=== PATIENT | male | born 1955 | race Caucasian/White ===

== ENCOUNTER 2016-11-21 18:59 | Inpatient (IN) | payer OTHER ==
[~2016-11-21] VITALS: Ht 172.7 cm; Wt 106.0 kg
[~2016-11-21 18:59] MED LIST: AMLO5TAB4 PO; ASPI-664 PO; CIPR500T4 PO; HYDR-902 PO; IBUP-1542 PO; INSU100C SQ; INSU100I31 SQ; LOSA50TA6 PO; LOVA20TA PO; TAMS-14 PO
[2016-11-21 19:08] VITALS: Ht 172.7 cm; Wt 106.0 kg
[2016-11-21] MEDS ORDERED: INSULIN LISPRO 100 UNIT/ML VIAL SC STA (22:49)
[2016-11-21] MEDS ORDERED: SOD CHLORIDE 0.9% 1,000 ML IV STA (22:49)
--- NOTE | 2016-11-21 23:23 | RADRPT ---
PROCEDURE: XR Chest. CLINICAL INDICATION: Hyperglycemia. TECHNIQUE: Portable AP upright view of the chest was obtained. COMPARISON: 06/05/2016 FINDINGS: The cardiomediastinal silhouette is within normal limits. The lungs are clear. There is no evidenc e for pleural effusion, pneumothorax or pulmonary vascular congestion. The osseous structures are i ntact with no evidence for acute abnormality. RPTAT:HJJR IMPRESSION: No evidence for acute intrathoracic pathology or interval change from 06/05/2016. Physician Julien Date Time Electronically viewed and signed by Cameron Sinclair Physician on 11/21/2016 23:22 /
[2016-11-21 23:37] LABS: BASOPHIL # 0.1 10^3/ul (0.0-0.1); BASOPHILS % 1.3 % (0.0-2.0); EOSINOPHILS # 0.2 10^3/ul (0.0-0.5); EOSINOPHILS % 1.6 % (0.0-7.0); HEMATOCRIT 48.5 % (42.0-52.0); HEMOGLOBIN 16.6 g/dl (14.0-18.0); LYMPHOCYTES # 3.3 10^3/ul (0.8-2.9); LYMPHOCYTES % 31.3 % (15.0-51.0); MEAN CORPUSCULAR HEMOGLOBIN 30.1 pg (29.0-33.0); MEAN CORPUSCULAR HGB CONC 34.2 g/dl (32.0-37.0); MEAN CORPUSCULAR VOLUME 87.8 fl (82.0-101.0); MEAN PLATELET VOLUME 10.5 fl (7.4-10.4); MONOCYTE # 0.7 10^3/ul (0.3-0.9); MONOCYTES % 6.4 % (0.0-11.0); NEUTROPHIL # 6.3 10^3/ul (1.6-7.5); NEUTROPHILS % 59.4 % (39.0-77.0); PLATELET COUNT 187 10^3/UL (140-440); RED BLOOD COUNT 5.53 10^6/ul (4.70-6.10); RED CELL DISTRIBUTION WIDTH 13.8 % (11.5-14.5); UNCORRECTED WBC 10.6 10^3/ul (4.8-10.8); WHITE BLOOD COUNT 10.6 10^3/ul (4.8-10.8)
[2016-11-21 23:43] LABS: CONDITION 1
[2016-11-22 00:17] LABS: ADD UMIC NO; URINE BILIRUBIN (Dip) NEGATIVE (NEGATIVE); URINE BLOOD (Dip) NEGATIVE (NEGATIVE); URINE COLOR LT. YELLOW (YELLOW); URINE GLUCOSE (Dip) >=1000 % (NEGATIVE); URINE KETONES (Dip) NEGATIVE (NEGATIVE); URINE LEUKOCYTE ESTERASE (Dip) NEGATIVE (NEGATIVE); URINE NITRITE (Dip) NEGATIVE (NEGATIVE); URINE TOTAL PROTEIN (Dip) NEGATIVE (NEGATIVE); URINE UROBILINOGEN (Dip) 0.2 E.U./dL (0.1-1.0)
[2016-11-22 00:26] LABS: ALBUMIN 4.1 g/dl (3.3-4.9)
[2016-11-22 00:27] LABS: POTASSIUM 4.6 mmol/L (3.5-5.1)
[2016-11-22 00:29] LABS: ALBUMIN/GLOBULIN RATIO 1.2; CREATININE 0.82 mg/dl (0.61-1.24); TOTAL PROTEIN 7.5 g/dl (6.1-8.1)
[2016-11-22 00:30] LABS: CALCIUM 9.6 mg/dl (8.4-10.2)
[2016-11-22] MEDS ORDERED: INSULIN REGULAR, HUMAN 100 UNIT in SOD CHLORIDE 0.9% 99 ML IV STA ×2 (00:58)
--- NOTE | 2016-11-22 02:40 | ERA ---
ER Documentation Chief Complaint Date/Time DATE: 11/22/16 TIME: 02:36 Chief Complaint hyperglycemia, accucheck 442 HPI This is a 61-year-old male who comes in with elevated blood sugars at home. Denies any fevers or chills. Denies any polyuria polydipsia polyphagia. States he's been compliant with his medications. Denies any other current problems. ROS All systems reviewed and are negative except as per history of present illness. Medications Home Meds Active Scripts Tamsulosin Hcl* (Flomax*) 0.4 Mg Cap.er.24h, 0.4 MG PO QPM, #30 CAP Prov:SANTIAGO PORTILLO MD 07/16/16 Ibuprofen* (Motrin*) 600 Mg Tab, 600 MG PO Q6H Y for PAIN AND OR ELEVATED TEMP, #30 TAB Prov:SANTIAGO PORTILLO MD 07/16/16 Hydrocodone/Acetaminophen ([place] 10-325 Tablet) 1 Each Tablet, 1 TAB PO Q6H Y for PAIN, #12 TAB Prov:SANTIAGO PORTILLO MD 07/16/16 Ciprofloxacin Hcl* (Ciprofloxacin Hcl*) 500 Mg Tablet, 500 MG PO BID for 7 Days , TAB Prov:SANTIAGO PORTILLO MD 07/16/16 Reported Medications Losartan Potassium* (Losartan Potassium*) 50 Mg Tablet, 50 MG PO DAILY, TAB 07/16/16 Insulin Lispro (Humalog) 100 Unit/1 Ml Cartridge, 0-15 UNIT SQ AC MEALS 07/16/16 Insulin Degludec (Tresiba Flextouch U-100) 100 Unit/1 Ml Insuln.pen, 10 UNIT SQ QPM 07/16/16 Amlodipine Besylate* (Norvasc*) 5 Mg Tablet, 5 MG PO DAILY, TAB 07/16/16 Lovastatin* (Lovastatin*) 20 Mg Tablet, 20 MG PO HS, TAB 06/03/16 Aspirin* (Aspirin* EC) 81 Mg Tablet.dr, 81 MG PO DAILY, TAB 06/03/16 Allergies Allergies: Coded Allergies: morphine (Verified Adverse Reaction, Intermediate, nuasea,vomiting, ) PMhx/Soc History of Surgery: Yes (knee sx, s/p kidney stents, s/p cystocopy) Anesthesia Reaction: No Hx Neurological Disorder: No Hx Respiratory Disorders: No Hx Cardiac Disorders: Yes (unspecified cardiac problem) Hx Psychiatric Problems: No Hx Miscellaneous Medical Probl: Yes (HTN, unspecified cardiac problem, DM) Hx Alcohol Use: No Hx Substance Use: Yes (Metamphetamine- used on 06/03/16) Hx Tobacco Use: No Physical Exam Vitals Vital Signs Date Time Temp Pulse Resp B/P Pulse Ox O2 Delivery O2 Flow Rate FiO2 11/22/16 01:42 70 16 128/85 98 Room Air 11/22/16 00:00 68 20 130/90 98 Room Air 11/21/16 23:20 97.2 18 154/86 97 11/21/16 19:08 97.2 89 18 154/86 97 Physical Exam Const: [] Head: Atraumatic Eyes: Normal Conjunctiva ENT: Normal External Ears, Nose and Mouth. Neck: Full range of motion..~ No meningismus. Resp: Clear to auscultation bilaterally Cardio: Regular rate and rhythm, no murmurs Abd: Soft, non tender, non distended. Normal bowel sounds Skin: No petechiae or rashes Back: No midline or flank tenderness Ext: No cyanosis, or edema Neur: Awake and alert Psych: Normal Mood and Affect Result Diagram: 11/21/16 2303 11/21/16 2303 Results 24 hrs Laboratory Tests Test 11/21/16 19:07 11/21/16 23:03 11/21/16 23:12 11/22/16 00:58 Bedside Glucose 442mg/dL 390mg/dL 304mg/dL Alanine Aminotransferase (ALT/SGPT) 27IU/L Albumin 4.1g/dl Albumin/Globulin Ratio 1.20 Alkaline Phosphatase 170IU/L Anion Gap 21 Aspartate Amino Transf (AST/SGOT) 22IU/L Basophils # 0.110^3/ul Basophils % 1.3% Blood Morphology Comment Blood Urea Nitrogen 20mg/dl Calcium Level 9.6mg/dl Carbon Dioxide Level 20mmol/L Chloride Level 96mmol/L Creatinine 0.82mg/dl Direct Bilirubin 0.00mg/dl Eosinophils # 0.210^3/ul Eosinophils % 1.6% Globulin 3.40g/dl Glucose Level 392mg/dl Hematocrit 48.5% Hemoglobin 16.6g/dl Indirect Bilirubin 0.0mg/dl Lactic Acid Level 1.9mmol/L Lymphocytes # 3.310^3/ul Lymphocytes % 31.3% Mean Corpuscular Hemoglobin 30.1pg Mean Corpuscular Hemoglobin Concent 34.2g/dl Mean Corpuscular Volume 87.8fl Mean Platelet Volume 10.5fl Monocytes # 0.710^3/ul Monocytes % 6.4% Neutrophils # 6.310^3/ul Neutrophils % 59.4% Nucleated Red Blood Cells # 0.010^3/ul Nucleated Red Blood Cells % 0.0/100WBC Platelet Count 84792^3/UL Potassium Level 4.6mmol/L Red Blood Count 5.5310^6/ul Red Cell Distribution Width 13.8% Sodium Level 132mmol/L Total Bilirubin 0.0mg/dl Total Protein 7.5g/dl Urine Bilirubin NEGATIVE Urine Clarity CLEAR Urine Color LT. YELLOW Urine Glucose >=1000% Urine Hemoglobin NEGATIVE Urine Ketones NEGATIVE Urine Leukocyte Esterase NEGATIVE Urine Nitrite NEGATIVE Urine Specific [place] 1.015 Urine Total Protein NEGATIVE Urine Urobilinogen 0.2 E.U./dL Urine pH 5.5 White Blood Count 10.610^3/ul Current Medications Medications (Trade) Dose Ordered Sig/Tawnya Route PRN Reason Start Time Stop Time Status Last Admin Dose Admin Sodium Chloride (NS) 1,000 ml @ 1,000 mls/hr Q1H STAT IV 11/21/16 22:49 11/21/16 23:48 DC 11/21/16 23:16 Insulin Human Lispro 6 unit 6 unit ONCE STAT SC 11/21/16 22:49 11/21/16 22:51 DC 11/21/16 23:16 Insulin Human Regular/Sodium Chloride (Humulin R/NS) 100 ml @ 10.6 mls/hr TITRATE STAT IV 11/22/16 00:58 11/22/16 10:24 11/22/16 01:30 Procedures/MDM EKG: Rate/Rhythm: Normal Sinus Rhythm QRS, ST, T-waves: No changes consistent w/ acute ischemia Impression: No evidence of ischemia or arrhythmia Chest X-ray 1V Interpreted by me: Soft Tissue: No acute abnormalities Bones: No acute abnormalities Mediastinum/Cardiac Silhouette/Lungs: No acute abnormalities Medical decision-making: This is exterior gentleman looks to be an early diabetic ketoacidosis. He's was fluid hydrated started on insulin drip per patient will be admitted to the ICU to the hospitalist. Critical Care: Time: 45 minutes Treatments/Evaluations: Close monitoring and treatment of unstable vital signs, cardiorespiratory, and neurologic status, while maintaining tight balance of fluid, respiratory, and cardiac interventions. Departure Diagnosis: Primary Impression: DKA (diabetic ketoacidoses) Qualified Code: E13.10 - Diabetic ketoacidosis without coma associated with type 2 diabetes mellitus Condition: Critical PARI CORADO Nov 22, 2016 02:40
[2016-11-22] MEDS ORDERED: ONDANSETRON 4 MG INJ IV PRN (06:00)
[2016-11-22] MEDS ORDERED: ACETAMINOPHEN 325 MG TAB PO PRN (06:00)
[2016-11-22] MEDS ORDERED: NACL 0.9% 3 ML SYG IV SCH (06:00)
[2016-11-22] MEDS ORDERED: HYDROCODONE/APAP (10/325) TAB PO PRN (06:00)
[2016-11-22] MEDS ORDERED: ALBUTEROL/IPRATROPIUM (NEB) 3 ML AMP HHN PRN (06:00)
[2016-11-22] MEDS ORDERED: DEXTROSE 50% 50 ML SYRINGE IV PRN ×2 (06:30)
[2016-11-22] MEDS ORDERED: GLUCOSE GEL 15 GRAM TUBE BUCCAL PRN (06:30)
[2016-11-22] MEDS ORDERED: GLUCOSE GEL 15 GRAM TUBE PO PRN ×2 (06:30)
[2016-11-22] MEDS ORDERED: GLUCAGON 1 MG INJ IM PRN (06:30)
--- NOTE | 2016-11-22 06:51 | HP ---
DATE OF ADMISSION: 11/21/2016 CHIEF COMPLAINT: Elevated blood sugar. HISTORY OF PRESENT ILLNESS: The patient is a 58-year-old male with a history of diabetes, hypertens ion, dyslipidemia, BPH, amphetamine abuse, left ureteral stone with hydronephrosis, status post cyst oscopy, who presented to the emergency department with a complaint of elevated blood glucose. The patient said he has not been fully compliant with his medication. He, however, denied any light headedness, any weakness, visual disturbance, shortness of breath, polyuria, or polydipsia. When he presented to the ER, blood pressure was 154/86, heart rate 89, respiratory rate 18, temperat ure 97.2. Laboratory values show a blood glucose of 442, bicarbonate 20, anion gap 21, urine with n o ketones, sodium 132. CBC is unremarkable. Chest x-ray shows no evidence of acute disease. The p atient was given IV fluid and started on insulin drip, and currently his blood glucose is 159. The patient will be initiated on subcutaneous insulin and will be continued with his insulin drip for a couple of hours and then will be admitted to telemetry unit. REVIEW OF SYSTEMS: A 12-point review was performed and is negative except as mentioned in HPI. PAST MEDICAL HISTORY: As per HPI. PAST SURGICAL HISTORY: Kidney stent, cystoscopy, and knee surgery. SOCIAL HISTORY: Positive for amphetamine abuse. ALLERGIES: MORPHINE. HOME MEDICATIONS: 1. Flomax. 2. Norvasc. 3. Losartan. 4. Lovastatin. 5. Aspirin. 6. [place]. 7. Ibuprofen 8. Insulin. PHYSICAL EXAMINATION: VITAL SIGNS: Stable. GENERAL: No acute distress, answering questions appropriately. HEENT: No obvious head deformity. Pupils are reactive to light. Extraocular muscles intact. CARDIOVASCULAR: Tachycardic with regular rhythm. LUNGS: Clear. ABDOMEN: Soft, nontender, nondistended. Positive bowel sounds. EXTREMITIES: No edema. NEUROLOGIC: No focal deficits. LABORATORY DATA: Pertinent positives as mentioned in the HPI. IMAGING: Chest x-ray with no active disease. IMPRESSION: 1. Hyperglycemia with mild diabetic ketoacidosis. 2. Hypertension. 3. History of dyslipidemia. 4. Mild hyponatremia. 5. History of BPH. 6. History of kidney stone status post cystoscopy and stent placement. 7. History of methamphetamine abuse. PLAN: The patient is currently in the ER, and he will be started on subcutaneous insulin, but his i nsulin drip will be continued for 2 hours as a bridge. Currently, his blood glucose is 159. He the n can be admitted to telemetry unit. We will check labs in the morning. We will correct electrolyt es as needed. He will be continued with his home medication including his antihypertensives, Flomax , and adjust as needed. He will also be placed on IV fluid. Further workup and management per clinical course. Dictated By: PARI MAYA/MELY Conf#: [id number] DID#: [id number]
[2016-11-22] MEDS: INSULIN ASPART [NOVOLOG] 3 ML PEN SC SCH ×5 (08:00→21:45)
[2016-11-22 08:45] LABS: BASOPHILS % 0.4 % (0.0-2.0); CONDITION 1; EOSINOPHILS # 0.2 10^3/ul (0.0-0.5); EOSINOPHILS % 2.3 % (0.0-7.0); HEMATOCRIT 45.5 % (42.0-52.0); HEMOGLOBIN 15.5 g/dl (14.0-18.0); LYMPHOCYTES # 3.7 10^3/ul (0.8-2.9); LYMPHOCYTES % 38.2 % (15.0-51.0); MEAN CORPUSCULAR HGB CONC 34.1 g/dl (32.0-37.0); MEAN CORPUSCULAR VOLUME 87.9 fl (82.0-101.0); MEAN PLATELET VOLUME 10.1 fl (7.4-10.4); MONOCYTE # 0.6 10^3/ul (0.3-0.9); MONOCYTES % 6.6 % (0.0-11.0); NEUTROPHIL # 5.1 10^3/ul (1.6-7.5); NEUTROPHILS % 52.5 % (39.0-77.0); PLATELET COUNT 177 10^3/UL (140-440); RED BLOOD COUNT 5.17 10^6/ul (4.70-6.10); RED CELL DISTRIBUTION WIDTH 13.6 % (11.5-14.5); UNCORRECTED WBC 9.7 10^3/ul (4.8-10.8); WHITE BLOOD COUNT 9.7 10^3/ul (4.8-10.8)
[2016-11-22 08:47] LABS: ALBUMIN 3.5 g/dl (3.3-4.9)
[2016-11-22 08:48] LABS: POTASSIUM 3.4 mmol/L (3.5-5.1)
[2016-11-22 08:50] LABS: ALBUMIN/GLOBULIN RATIO 1.12; BILIRUBIN,INDIRECT 0.1 mg/dl (0-1.1); BILIRUBIN,TOTAL 0.1 mg/dl (0.2-1.3); CREATININE 0.77 mg/dl (0.61-1.24); TOTAL PROTEIN 6.6 g/dl (6.1-8.1)
[2016-11-22 08:51] LABS: CALCIUM 8.8 mg/dl (8.4-10.2); CHOL/HDL RATIO 7.7 RATIO; MAGNESIUM 1.8 mg/dl (1.7-2.5)
[2016-11-22 09:00] VITALS: TEMP 98.2
[2016-11-22] MEDS: SOD CHLORIDE 0.9% 1,000 ML IV SCH ×2 (09:25→13:36)
[2016-11-22] MEDS: ASPIRIN (EC) 81 MG TAB PO SCH (09:25)
[2016-11-22] MEDS: AMLODIPINE 5 MG TAB PO SCH (09:26)
[2016-11-22] MEDS: LOSARTAN 50 MG TAB PO SCH (09:26)
[2016-11-22] MEDS: INSULIN GLARGINE [LANtus] 3 ML PEN SC SCH (09:28)
[2016-11-22 11:53] VITALS: BP 155/85; RESP 16
[2016-11-22 12:34] VITALS: PULSE 70
[2016-11-22] MEDS ORDERED: POTASSIUM CHLORIDE (SR) 20 MEQ TAB PO STA (13:02)
--- NOTE | 2016-11-22 16:04 | QN ---
Documentation Comment The patient was seen and examined. Plan of care was explained to the patient. Adjusted the insulin dosing. Diabetes education consult was called. The patient will be moved to a medical surgical floor. Case discussed with Dr. Hamlin. ONI RANGEL NP Nov 22, 2016 16:04
[2016-11-22 16:47] VITALS: PULSE 78
[2016-11-22 18:00] VITALS: BP 162/84; PULSE 96; RESP 16
[2016-11-22 20:13] VITALS: BP 129/87; RESP 18
[2016-11-22] MEDS ORDERED: NON-FORMULARY/PATIENT OWN MED (Lovastatin* 20 MG) PO SCH (21:00)
[2016-11-22] MEDS: ATORVASTATIN 10 MG TAB PO SCH (21:30)
[2016-11-22] MEDS: TAMSULOSIN (SR) 0.4 MG CAP PO SCH (21:30)
[2016-11-22] MEDS: LORAZEPAM 0.5 MG TAB PO PRN (21:46)
[2016-11-22 22:39] LABS: BARBITURATES Negative (NEGATIVE); BENZODIAZEPINES Negative (NEGATIVE); CANNABINOIDS Negative (NEGATIVE); COCAINE Negative (NEGATIVE); OPIATES Negative (NEGATIVE)
[2016-11-23] MEDS: ZOLPIDEM 5 MG TAB PO PRN ×2 (00:25→21:25)
[2016-11-23 00:50] VITALS: BP 106/62; RESP 89
[2016-11-23 01:30] VITALS: BP 138/90; PULSE 85; RESP 18
[2016-11-23] MEDS: ACCUCHECK AT 2AM (Patients on SS coverage) XX SCH (02:00)
[2016-11-23 06:03] LABS: BASOPHILS % 0.4 % (0.0-2.0); EOSINOPHILS # 0.2 10^3/ul (0.0-0.5); EOSINOPHILS % 1.7 % (0.0-7.0); HEMATOCRIT 44.9 % (42.0-52.0); HEMOGLOBIN 15.5 g/dl (14.0-18.0); LYMPHOCYTES # 3.3 10^3/ul (0.8-2.9); LYMPHOCYTES % 34.9 % (15.0-51.0); MEAN CORPUSCULAR HEMOGLOBIN 30.5 pg (29.0-33.0); MEAN CORPUSCULAR HGB CONC 34.5 g/dl (32.0-37.0); MEAN CORPUSCULAR VOLUME 88.3 fl (82.0-101.0); MEAN PLATELET VOLUME 10.1 fl (7.4-10.4); MONOCYTE # 0.6 10^3/ul (0.3-0.9); MONOCYTES % 5.8 % (0.0-11.0); NEUTROPHIL # 5.5 10^3/ul (1.6-7.5); NEUTROPHILS % 57.2 % (39.0-77.0); PLATELET COUNT 164 10^3/UL (140-440); RED BLOOD COUNT 5.08 10^6/ul (4.70-6.10); RED CELL DISTRIBUTION WIDTH 13.5 % (11.5-14.5); UNCORRECTED WBC 9.6 10^3/ul (4.8-10.8); WHITE BLOOD COUNT 9.6 10^3/ul (4.8-10.8)
[2016-11-23 06:40] LABS: POTASSIUM 4.3 mmol/L (3.5-5.1)
[2016-11-23 06:42] LABS: CREATININE 0.71 mg/dl (0.61-1.24)
[2016-11-23 06:43] LABS: MAGNESIUM 1.8 mg/dl (1.7-2.5); PHOSPHORUS 4.1 mg/dl (2.5-4.9)
[2016-11-23 07:10] LABS: CONDITION 1
[2016-11-23 08:00] VITALS: BP 119/75; PULSE 73; RESP 18
[2016-11-23] MEDS ORDERED: INFLUENZA VIRUS VACCINE 0.5 ML SYG IM* ONE (09:00)
[2016-11-23] MEDS: ASPIRIN (EC) 81 MG TAB PO SCH (09:40)
[2016-11-23] MEDS: AMLODIPINE 5 MG TAB PO SCH (09:41)
[2016-11-23] MEDS: LOSARTAN 50 MG TAB PO SCH (09:48)
[2016-11-23] MEDS: INSULIN GLARGINE [LANtus] 3 ML PEN SC SCH (09:49)
[2016-11-23] MEDS: INSULIN ASPART [NOVOLOG] 3 ML PEN SC SCH ×8 (09:50→21:27)
--- NOTE | 2016-11-23 13:36 | PN ---
DATE: 11/23/2016 SUBJECTIVE DATA: The patient was complaining of dyspnea earlier. The patient' s blood sugar is running high. OBJECTIVE DATA: VITAL SIGNS: Temperature 98.0, pulse rate 70, respiratory rate 18, blood pressure 119/74, oxygen saturation 96% on room air. GENERAL: This is an obese male patient lying in bed in no apparent distress. HEENT: Head normocephalic and atraumatic. Eyes: Anicteric sclerae. Conjunctivae clear. ENT: Nasal septum is midline. Oral mucosa is dry. NECK: Supple. No JVD noticed. RESPIRATORY: Bilaterally diminished breath sounds. No adventitious breath sounds heard. No use of accessory muscles of respiration. CARDIAC: Regular rate and rhythm. No murmurs heard. ABDOMEN: Soft, nontender and nondistended. Bowel sounds positive in all 4 quadrants. GENITOURINARY: Deferred. EXTREMITIES: No cyanosis, no clubbing, no edema. Peripheral pulses are palpable. NEUROLOGIC: The patient is awake, alert and oriented. Cranial nerves are grossly intact. LABORATORY AND DIAGNOSTIC DATA: WBC 9.6, hemoglobin 15.5, hematocrit 44.9, platelet count 164. Sodium 137, potassium 4.3, chloride 100, carbon dioxide 23 , anion gap 15, BUN 13, creatinine 0.79, glucose 275, calcium 9.0. Phosphorus 4.1, magnesium 1.8. Hemoglobin A1c 12.9. ASSESSMENT AND PLAN: 1. Hyperglycemia with anion gap acidosis. Resolved. The patient is currently on sliding scale insulin. 2. Type 2 diabetes mellitus. Uncontrolled. Adjust insulin dosing to obtain optimum blood sugar control. We will obtain a diabetes education consult. 3. Essential hypertension. Continue antihypertensives. Blood pressure fairly well control. 4. Dyslipidemia. Continue statins. Fasting lipid panel showing suboptimal triglycerides and suboptimal total cholesterol with a low HDL. 5. Benign prostatic hypertrophy. Continue tamsulosin. 6. Obesity. BMI of 35.5 kg/squared meter. Weight reduction advised. 7. Fluid, electrolytes and nutrition. Carbohydrate controlled, low cholesterol diet. 8. Deep venous thrombosis prophylaxis. Subcutaneous Lovenox. 9. Gastrointestinal prophylaxis. Histamine 2 receptor blockers. 10. Plan: We will a diabetes education consult. Adjust insulin dosing to obtain optimum blood sugar control. The case was discussed with Dr. Hamlin. ONI HAMLIN MD, AM/MELY Conf#: [id number] [facility]#: [id number] MTDD
[2016-11-23 20:57] VITALS: BP 134/84; RESP 18
[2016-11-23] MEDS: TAMSULOSIN (SR) 0.4 MG CAP PO SCH (21:25)
[2016-11-23] MEDS: ATORVASTATIN 10 MG TAB PO SCH (21:25)
[2016-11-23] MEDS: FAMOTIDINE 20 MG TAB PO SCH (21:25)
[2016-11-23] MEDS: LORAZEPAM 0.5 MG TAB PO PRN (23:03)
[2016-11-24] MEDS: ACCUCHECK AT 2AM (Patients on SS coverage) XX SCH (02:00)
[2016-11-24 06:07] LABS: BASOPHIL # 0.1 10^3/ul (0.0-0.1); BASOPHILS % 0.5 % (0.0-2.0); EOSINOPHILS # 0.2 10^3/ul (0.0-0.5); EOSINOPHILS % 2.5 % (0.0-7.0); HEMATOCRIT 46.8 % (42.0-52.0); LYMPHOCYTES # 3.2 10^3/ul (0.8-2.9); LYMPHOCYTES % 34.6 % (15.0-51.0); MEAN CORPUSCULAR HEMOGLOBIN 30.2 pg (29.0-33.0); MEAN CORPUSCULAR HGB CONC 34.1 g/dl (32.0-37.0); MEAN CORPUSCULAR VOLUME 88.6 fl (82.0-101.0); MEAN PLATELET VOLUME 9.6 fl (7.4-10.4); MONOCYTE # 0.6 10^3/ul (0.3-0.9); MONOCYTES % 6.2 % (0.0-11.0); NEUTROPHIL # 5.2 10^3/ul (1.6-7.5); NEUTROPHILS % 56.2 % (39.0-77.0); PLATELET COUNT 169 10^3/UL (140-440); RED BLOOD COUNT 5.29 10^6/ul (4.70-6.10); RED CELL DISTRIBUTION WIDTH 13.7 % (11.5-14.5); UNCORRECTED WBC 9.2 10^3/ul (4.8-10.8); WHITE BLOOD COUNT 9.2 10^3/ul (4.8-10.8)
[2016-11-24 06:15] LABS: CONDITION 1
[2016-11-24 06:16] LABS: POTASSIUM 4.1 mmol/L (3.5-5.1)
[2016-11-24 06:18] LABS: MAGNESIUM 1.8 mg/dl (1.7-2.5); PHOSPHORUS 4.2 mg/dl (2.5-4.9)
[2016-11-24 06:19] LABS: CREATININE 0.79 mg/dl (0.61-1.24)
[2016-11-24 06:20] LABS: CALCIUM 9.2 mg/dl (8.4-10.2)
[2016-11-24 07:58] VITALS: BP 125/77; RESP 20
[2016-11-24] MEDS ORDERED: INSULIN GLARGINE [LANtus] 3 ML PEN SC SCH (08:00)
[2016-11-24] MEDS: INSULIN ASPART [NOVOLOG] 3 ML PEN SC SCH ×7 (08:01→21:24)
[2016-11-24] MEDS: ASPIRIN (EC) 81 MG TAB PO SCH (08:05)
[2016-11-24] MEDS: AMLODIPINE 5 MG TAB PO SCH (08:05)
[2016-11-24] MEDS: LOSARTAN 50 MG TAB PO SCH (08:05)
[2016-11-24] MEDS: FAMOTIDINE 20 MG TAB PO SCH ×2 (08:05→21:23)
[2016-11-24] MEDS: ENOXAPARIN 40 MG/0.4 ML SYG SC SCH (08:08)
[2016-11-24] MEDS ORDERED: NPH, HUMAN INSULIN ISOPHANE 3ML VIAL SC ONE (10:30)
--- NOTE | 2016-11-24 10:37 | PN ---
Date/Time of Note Date/Time of Note DATE: 11/24/16 TIME: 10:37 Assessment/Plan VTE Prophylaxis VTE Prophylaxis Intervention: LMWH Lines/Catheters IV [facility] Saline Lock Assessment/Plan Chief Complaint/Hosp Course 1. Hyperglycemia with anion gap acidosis. Resolved. The patient is currently on sliding scale insulin. 2. Type 2 diabetes mellitus. Uncontrolled. Adjust insulin dosing to obtain optimum blood sugar control. 3. Essential hypertension. Continue antihypertensives. Blood pressure fairly well control. 4. Dyslipidemia. Continue statins. Fasting lipid panel showing suboptimal triglycerides and suboptimal total cholesterol with a low HDL. 5. Benign prostatic hypertrophy. Continue tamsulosin. 6. Obesity. BMI of 35.5 kg/squared meter. Weight reduction advised. 7. Fluid, electrolytes and nutrition. Carbohydrate controlled, low cholesterol diet. 8. Deep venous thrombosis prophylaxis. Subcutaneous Lovenox. 9. Gastrointestinal prophylaxis. Histamine 2 receptor blockers. 10. Plan: Pending diabetes education consult. Adjust insulin dosing to obtain optimum blood sugar control. The case was discussed with Dr. Hamlin. Problems: Subjective 24 Hr Interval Summary Free Text/Dictation Blood sugar still running high. Denies other complaints. Exam/Review of Systems Vital Signs Vitals Vital Signs Date Time Temp Pulse Resp B/P Pulse Ox O2 Delivery O2 Flow Rate FiO2 11/24/16 07:58 98.8 82 20 125/77 96 11/23/16 08:00 Room Air 11/22/16 05:47 Intake and Output 11/23/16 11/23/16 11/24/16 15:00 23:00 07:00 Intake Total 800 ml 480 ml Output Total 1250 ml 1000 ml Balance -450 ml -520 ml Exam GENERAL: This is an obese male patient lying in bed in no apparent distress. HEENT: Head normocephalic and atraumatic. Eyes: Anicteric sclerae. Conjunctivae clear. ENT: Nasal septum is midline. Oral mucosa is dry. NECK: Supple. No JVD noticed. RESPIRATORY: Bilaterally diminished breath sounds. No adventitious breath sounds heard. No use of accessory muscles of respiration. CARDIAC: Regular rate and rhythm. No murmurs heard. ABDOMEN: Soft, nontender and nondistended. Bowel sounds positive in all 4 quadrants. GENITOURINARY: Deferred. EXTREMITIES: No cyanosis, no clubbing, no edema. Peripheral pulses are palpable. NEUROLOGIC: The patient is awake, alert and oriented. Cranial nerves are grossly intact. Results Result Diagram: 11/24/16 0540 11/24/16 0540 Results 24 hrs Laboratory Tests Test 11/23/16 13:05 11/23/16 16:55 11/23/16 20:28 11/24/16 05:40 Bedside Glucose 336 H 269 H 239 H Anion Gap 16 Basophils # 0.1 Basophils % 0.5 Blood Urea Nitrogen 14 Calcium Level 9.2 Carbon Dioxide Level 24 Chloride Level 103 Creatinine 0.79 Eosinophils # 0.2 Eosinophils % 2.5 Glucose Level 254 H Hematocrit 46.8 Hemoglobin 16.0 Lymphocytes # 3.2 H Lymphocytes % 34.6 Magnesium Level 1.8 Mean Corpuscular Hemoglobin 30.2 Mean Corpuscular Hemoglobin Concent 34.1 Mean Corpuscular Volume 88.6 Mean Platelet Volume 9.6 Monocytes # 0.6 Monocytes % 6.2 Neutrophils # 5.2 Neutrophils % 56.2 Nucleated Red Blood Cells # 0.0 Nucleated Red Blood Cells % 0.0 Phosphorus Level 4.2 Platelet Count 169 Potassium Level 4.1 Red Blood Count 5.29 Red Cell Distribution Width 13.7 Sodium Level 139 White Blood Count 9.2 Test 11/24/16 07:56 Bedside Glucose 277 H Medications Medications Current Medications Lorazepam (Ativan) 0.5 mg Q8H PRN PO ANXIETY Last administered on 11/23/16 23: 03; Admin Dose 0.5 MG; Start 11/22/16 at 06:00 Ondansetron HCl (Zofran Inj) 4 mg Q6H PRN IV NAUSEA AND/OR VOMITING; Start 11/22 at 06:00 Acetaminophen (Tylenol Tab) 650 mg Q6H PRN PO PAIN LEVEL 1-3 OR FEVER; Start at 06:00 Amlodipine Besylate (Norvasc) 5 mg DAILY PO Last administered on 11/24/16 08:05 ; Admin Dose 5 MG; Start 11/22/16 at 09:00 Aspirin (Halfprin) 81 mg DAILY PO Last administered on 11/24/16 08:05; Admin Dose 81 MG; Start 11/22/16 at 09:00 Acetaminophen/ Hydrocodone Bitart ([place] (10/325)) 1 tab Q6H PRN PO PAIN; Start 11/22/16 at 06:00 Losartan Potassium (Cozaar) 50 mg DAILY PO Last administered on 11/24/16 08:05 ; Admin Dose 50 MG; Start 11/22/16 at 09:00 Tamsulosin HCl (Flomax) 0.4 mg QPM PO Last administered on 11/23/16 21:25; Admin Dose 0.4 MG; Start 11/22/16 at 21:00 Diagnostic Test (Pha) (Accucheck) 1 ea 02 XX ; Start 11/23/16 at 02:00 Miscellaneous Information 1 ea NOTE XX ; Start 11/22/16 at 06:30 Glucose (Glutose) 15 gm Q15M PRN PO DECREASED GLUCOSE; Start 11/22/16 at 06:30 Glucose (Glutose) 22.5 gm Q15M PRN PO DECREASED GLUCOSE; Start 11/22/16 at 06:30 Dextrose (D50w Syringe) 25 ml Q15M PRN IV DECREASED GLUCOSE; Start 11/22/16 at 06:30 Dextrose (D50w Syringe) 50 ml Q15M PRN IV DECREASED GLUCOSE; Start 11/22/16 at 06:30 Glucagon (Glucagen) 1 mg Q15M PRN IM DECREASED GLUCOSE; Start 11/22/16 at 06:30 Glucose (Glutose) 15 gm Q15M PRN BUCCAL DECREASED GLUCOSE; Start 11/22/16 at 06: 30 Atorvastatin Calcium (Lipitor) 10 mg DAILY@21 PO Last administered on 11/23/16 21:25; Admin Dose 10 MG; Start 11/22/16 at 21:00 Zolpidem Tartrate (Ambien) 5 mg HS PRN PO INSOMNIA Last administered on 21:25; Admin Dose 5 MG; Start 11/23/16 at 00:00 Enoxaparin Sodium (Lovenox) 40 mg DAILY SC Last administered on 11/24/16 08:08 ; Admin Dose 40 MG; Start 11/24/16 at 09:00 Famotidine (Pepcid) 20 mg BID PO Last administered on 11/24/16 08:05; Admin Dose 20 MG; Start 11/23/16 at 21:00 Insulin Glargine (Lantus) 24 unit DAILY@08 SC ; Start 11/25/16 at 08:00 ONI RANGEL NP Nov 24, 2016 10:37
[2016-11-24] MEDS: metFORMIN 500 MG TAB PO SCH (17:06)
[2016-11-24] MEDS: ATORVASTATIN 10 MG TAB PO SCH (21:23)
[2016-11-24] MEDS: TAMSULOSIN (SR) 0.4 MG CAP PO SCH (21:23)
[2016-11-24] MEDS: ZOLPIDEM 5 MG TAB PO PRN (21:55)
[2016-11-25] MEDS: LORAZEPAM 0.5 MG TAB PO PRN (00:31)
[2016-11-25] MEDS: ACCUCHECK AT 2AM (Patients on SS coverage) XX SCH (02:00)
[2016-11-25 05:37] LABS: BASOPHILS % 0.4 % (0.0-2.0); EOSINOPHILS # 0.3 10^3/ul (0.0-0.5); EOSINOPHILS % 2.6 % (0.0-7.0); HEMOGLOBIN 16.1 g/dl (14.0-18.0); LYMPHOCYTES # 3.7 10^3/ul (0.8-2.9); LYMPHOCYTES % 37.6 % (15.0-51.0); MEAN CORPUSCULAR HGB CONC 33.7 g/dl (32.0-37.0); MEAN CORPUSCULAR VOLUME 89.2 fl (82.0-101.0); MEAN PLATELET VOLUME 10.1 fl (7.4-10.4); MONOCYTE # 0.6 10^3/ul (0.3-0.9); NEUTROPHIL # 5.3 10^3/ul (1.6-7.5); NEUTROPHILS % 53.4 % (39.0-77.0); PLATELET COUNT 183 10^3/UL (140-440); RED BLOOD COUNT 5.38 10^6/ul (4.70-6.10); RED CELL DISTRIBUTION WIDTH 13.4 % (11.5-14.5)
[2016-11-25 05:55] LABS: POTASSIUM 3.8 mmol/L (3.5-5.1)
[2016-11-25 05:56] LABS: MAGNESIUM 1.8 mg/dl (1.7-2.5); PHOSPHORUS 4.2 mg/dl (2.5-4.9)
[2016-11-25 05:57] LABS: CREATININE 0.78 mg/dl (0.61-1.24)
[2016-11-25 05:58] LABS: CALCIUM 9.3 mg/dl (8.4-10.2)
[2016-11-25 06:19] LABS: CONDITION 1
[2016-11-25 07:25] VITALS: BP 163/90; RESP 20
[2016-11-25] MEDS ORDERED: INSULIN GLARGINE [LANtus] 3 ML PEN SC SCH (08:00)
[2016-11-25] MEDS: metFORMIN 500 MG TAB PO SCH ×2 (09:02→16:21)
[2016-11-25] MEDS: LOSARTAN 50 MG TAB PO SCH (09:02)
[2016-11-25] MEDS: ASPIRIN (EC) 81 MG TAB PO SCH (09:03)
[2016-11-25] MEDS: FAMOTIDINE 20 MG TAB PO SCH ×2 (09:03→21:12)
[2016-11-25] MEDS: AMLODIPINE 5 MG TAB PO SCH (09:03)
[2016-11-25] MEDS: ENOXAPARIN 40 MG/0.4 ML SYG SC SCH (09:04)
[2016-11-25] MEDS: INSULIN ASPART [NOVOLOG] 3 ML PEN SC SCH ×7 (09:06→21:19)
[2016-11-25] MEDS ORDERED: INSULIN ASPART [NOVOLOG] 3 ML PEN SC SCH (11:30)
--- NOTE | 2016-11-25 11:35 | PN ---
Date/Time of Note Date/Time of Note DATE: 11/25/16 TIME: 11:33 Assessment/Plan VTE Prophylaxis VTE Prophylaxis Intervention: LMWH Lines/Catheters IV [facility] Saline Lock Assessment/Plan Chief Complaint/Hosp Course 1. Hyperglycemia with anion gap acidosis. Resolved. The patient is currently on sliding scale insulin. 2. Type 2 diabetes mellitus. Uncontrolled. Adjust insulin dosing to obtain optimum blood sugar control. 3. Essential hypertension. Continue antihypertensives. Blood pressure fairly well control. 4. Dyslipidemia. Continue statins. Fasting lipid panel showing suboptimal triglycerides and suboptimal total cholesterol with a low HDL. 5. Benign prostatic hypertrophy. Continue tamsulosin. 6. Obesity. BMI of 35.5 kg/squared meter. Weight reduction advised. 7. Fluid, electrolytes and nutrition. Carbohydrate controlled, low cholesterol diet. 8. Deep venous thrombosis prophylaxis. Subcutaneous Lovenox. 9. Gastrointestinal prophylaxis. Histamine 2 receptor blockers. 10. Plan: Adjust insulin dosing to obtain optimum blood sugar control. The case was discussed with Dr. Hamlin. Problems: Subjective 24 Hr Interval Summary Free Text/Dictation Blood sugars better. However, still above 200. Exam/Review of Systems Vital Signs Vitals Vital Signs Date Time Temp Pulse Resp B/P Pulse Ox O2 Delivery O2 Flow Rate FiO2 11/25/16 07:25 98.6 77 20 163/90 96 11/23/16 08:00 Room Air 11/22/16 05:47 Intake and Output 11/24/16 11/24/16 11/25/16 15:00 23:00 07:00 Intake Total 920 ml 680 ml Output Total 1400 ml Balance -480 ml 680 ml Exam GENERAL: This is an obese male patient lying in bed in no apparent distress. HEENT: Head normocephalic and atraumatic. Eyes: Anicteric sclerae. Conjunctivae clear. ENT: Nasal septum is midline. Oral mucosa is dry. NECK: Supple. No JVD noticed. RESPIRATORY: Bilaterally diminished breath sounds. No adventitious breath sounds heard. No use of accessory muscles of respiration. CARDIAC: Regular rate and rhythm. No murmurs heard. ABDOMEN: Soft, nontender and nondistended. Bowel sounds positive in all 4 quadrants. GENITOURINARY: Deferred. EXTREMITIES: No cyanosis, no clubbing, no edema. Peripheral pulses are palpable. NEUROLOGIC: The patient is awake, alert and oriented. Cranial nerves are grossly intact. Results Result Diagram: 11/25/16 0440 11/25/16 0440 Results 24 hrs Laboratory Tests Test 11/24/16 12:05 11/24/16 16:58 11/24/16 20:15 11/25/16 04:40 Bedside Glucose 286 H 226 H 209 Anion Gap 17 H Basophils # 0.0 Basophils % 0.4 Blood Urea Nitrogen 13 Calcium Level 9.3 Carbon Dioxide Level 26 Chloride Level 100 Creatinine 0.78 Eosinophils # 0.3 Eosinophils % 2.6 Glucose Level 206 Hematocrit 48.0 Hemoglobin 16.1 Lymphocytes # 3.7 H Lymphocytes % 37.6 Magnesium Level 1.8 Mean Corpuscular Hemoglobin 30.0 Mean Corpuscular Hemoglobin Concent 33.7 Mean Corpuscular Volume 89.2 Mean Platelet Volume 10.1 Monocytes # 0.6 Monocytes % 6.0 Neutrophils # 5.3 Neutrophils % 53.4 Nucleated Red Blood Cells # 0.0 Nucleated Red Blood Cells % 0.0 Phosphorus Level 4.2 Platelet Count 183 Potassium Level 3.8 Red Blood Count 5.38 Red Cell Distribution Width 13.4 Sodium Level 139 White Blood Count 10.0 Test 11/25/16 07:53 Bedside Glucose 204 Medications Medications Current Medications Lorazepam (Ativan) 0.5 mg Q8H PRN PO ANXIETY Last administered on 11/25/16 00: 31; Admin Dose 0.5 MG; Start 11/22/16 at 06:00 Ondansetron HCl (Zofran Inj) 4 mg Q6H PRN IV NAUSEA AND/OR VOMITING; Start 11/22 at 06:00 Acetaminophen (Tylenol Tab) 650 mg Q6H PRN PO PAIN LEVEL 1-3 OR FEVER; Start at 06:00 Amlodipine Besylate (Norvasc) 5 mg DAILY PO Last administered on 11/25/16 09:03 ; Admin Dose 5 MG; Start 11/22/16 at 09:00 Aspirin (Halfprin) 81 mg DAILY PO Last administered on 11/25/16 09:03; Admin Dose 81 MG; Start 11/22/16 at 09:00 Acetaminophen/ Hydrocodone Bitart ([place] (10/325)) 1 tab Q6H PRN PO PAIN; Start 11/22/16 at 06:00 Losartan Potassium (Cozaar) 50 mg DAILY PO Last administered on 11/25/16 09:02 ; Admin Dose 50 MG; Start 11/22/16 at 09:00 Tamsulosin HCl (Flomax) 0.4 mg QPM PO Last administered on 11/24/16 21:23; Admin Dose 0.4 MG; Start 11/22/16 at 21:00 Diagnostic Test (Pha) (Accucheck) 1 ea 02 XX ; Start 11/23/16 at 02:00 Miscellaneous Information 1 ea NOTE XX ; Start 11/22/16 at 06:30 Glucose (Glutose) 15 gm Q15M PRN PO DECREASED GLUCOSE; Start 11/22/16 at 06:30 Glucose (Glutose) 22.5 gm Q15M PRN PO DECREASED GLUCOSE; Start 11/22/16 at 06:30 Dextrose (D50w Syringe) 25 ml Q15M PRN IV DECREASED GLUCOSE; Start 11/22/16 at 06:30 Dextrose (D50w Syringe) 50 ml Q15M PRN IV DECREASED GLUCOSE; Start 11/22/16 at 06:30 Glucagon (Glucagen) 1 mg Q15M PRN IM DECREASED GLUCOSE; Start 11/22/16 at 06:30 Glucose (Glutose) 15 gm Q15M PRN BUCCAL DECREASED GLUCOSE; Start 11/22/16 at 06: 30 Atorvastatin Calcium (Lipitor) 10 mg DAILY@21 PO Last administered on 11/24/16 21:23; Admin Dose 10 MG; Start 11/22/16 at 21:00 Zolpidem Tartrate (Ambien) 5 mg HS PRN PO INSOMNIA Last administered on 21:55; Admin Dose 5 MG; Start 11/23/16 at 00:00 Enoxaparin Sodium (Lovenox) 40 mg DAILY SC Last administered on 11/25/16 09:04 ; Admin Dose 40 MG; Start 11/24/16 at 09:00 Famotidine (Pepcid) 20 mg BID PO Last administered on 11/25/16 09:03; Admin Dose 20 MG; Start 11/23/16 at 21:00 Insulin Glargine (Lantus) 30 unit DAILY@08 SC ; Start 11/26/16 at 08:00 ONI RANGEL NP Nov 25, 2016 11:35
[2016-11-25 20:07] VITALS: BP 118/82; RESP 20
[2016-11-25] MEDS: ATORVASTATIN 10 MG TAB PO SCH (21:12)
[2016-11-25] MEDS: TAMSULOSIN (SR) 0.4 MG CAP PO SCH (21:12)
[2016-11-25] MEDS: ZOLPIDEM 5 MG TAB PO PRN (23:56)
[2016-11-26] MEDS: ACCUCHECK AT 2AM (Patients on SS coverage) XX SCH (02:05)
[2016-11-26 05:56] LABS: ADD SCAN DIFF NO
[2016-11-26 05:59] LABS: BASOPHIL # 0.1 10^3/ul (0.0-0.1); BASOPHILS % 0.6 % (0.0-2.0); EOSINOPHILS # 0.2 10^3/ul (0.0-0.5); EOSINOPHILS % 2.3 % (0.0-7.0); HEMATOCRIT 47.2 % (42.0-52.0); HEMOGLOBIN 15.5 g/dl (14.0-18.0); LYMPHOCYTES # 4.2 10^3/ul (0.8-2.9); LYMPHOCYTES % 42.1 % (15.0-51.0); MEAN CORPUSCULAR HEMOGLOBIN 29.3 pg (29.0-33.0); MEAN CORPUSCULAR HGB CONC 32.8 g/dl (32.0-37.0); MEAN CORPUSCULAR VOLUME 89.2 fl (82.0-101.0); MEAN PLATELET VOLUME 11.5 fl (7.4-10.4); MONOCYTE # 0.7 10^3/ul (0.3-0.9); NEUTROPHIL # 4.7 10^3/ul (1.6-7.5); NEUTROPHILS % 47.5 % (39.0-77.0); PLATELET COUNT 208 10^3/UL (140-415); RED BLOOD COUNT 5.29 10^6/ul (4.70-6.10); RED CELL DISTRIBUTION WIDTH 12.9 % (11.5-14.5); WHITE BLOOD COUNT 9.9 10^3/ul (4.8-10.8)
[2016-11-26 06:31] LABS: POTASSIUM 4.9 mmol/L (3.5-5.1)
[2016-11-26 06:34] LABS: CREATININE 0.97 mg/dl (0.61-1.24)
[2016-11-26 06:35] LABS: CALCIUM 9.6 mg/dl (8.4-10.2)
[2016-11-26 06:37] LABS: MAGNESIUM 1.7 mg/dl (1.7-2.5); PHOSPHORUS 4.6 mg/dl (2.5-4.9)
[2016-11-26 08:00] VITALS: BP 162/70; RESP 20
[2016-11-26] MEDS ORDERED: INSULIN GLARGINE [LANtus] 3 ML PEN SC SCH ×3 (08:00)
[2016-11-26] MEDS: FAMOTIDINE 20 MG TAB PO SCH (09:07)
[2016-11-26] MEDS: LOSARTAN 50 MG TAB PO SCH (09:08)
[2016-11-26] MEDS: ASPIRIN (EC) 81 MG TAB PO SCH (09:08)
[2016-11-26] MEDS: AMLODIPINE 5 MG TAB PO SCH (09:08)
[2016-11-26] MEDS: metFORMIN 500 MG TAB PO SCH ×2 (09:08→16:48)
[2016-11-26] MEDS: ENOXAPARIN 40 MG/0.4 ML SYG SC SCH (09:09)
[2016-11-26] MEDS: INSULIN ASPART [NOVOLOG] 3 ML PEN SC SCH ×6 (09:11→17:36)
--- NOTE | 2016-11-26 11:24 | PDOCDIS ---
Discharge Instructions DIAGNOSIS Discharge Diagnosis: Hyperglycemia. Uncontrolled diabetes. CONDITION Patient Condition: Stable HOME CARE INSTRUCTIONS: Diet Instructions: Low Fat /CholesterolSpecial Diet: Low-cholesterol, carbohydrate controlled FOLLOW UP/APPOINTMENTS Appointments Renard Ohara MD Specialty: Internal Medicine Office Address: [address] [place], [place] [id number] Office OTHER ORDERS: Other Orders: 1. Low-cholesterol, carbohydrate controlled diet. 2. Take medications as per prescription. 3. Resume activities as tolerated. 4. Follow-up with your primary care physician in 2 weeks. If you do not have a primary care physician, please call Dr. Renard Ohara's office. ONI RANGEL NP Nov 26, 2016 11:24
[2016-11-26] MEDS ORDERED: NOVO3I SC (11:26)
[2016-11-26] MEDS ORDERED: ATOR40TA68 PO (11:26)
[2016-11-26] MEDS ORDERED: LANT3I SC (11:26)
[2016-11-26] MEDS ORDERED: NPH, HUMAN INSULIN ISOPHANE 3ML VIAL SC ONE (11:30)
[2016-11-26 11:34] VITALS: BP 145/83
--- NOTE | 2016-11-26 12:16 | DS ---
DATE OF ADMISSION: 11/22/2016 DATE OF DISCHARGE: 11/26/2016 FINAL DIAGNOSES: 1. Hyperglycemia with anion gap acidosis secondary to uncontrolled diabetes. 2. Type 2 diabetes, uncontrolled. Hemoglobin A1c 12.9. 3. Essential hypertension. 4. Dyslipidemia. 5. Benign prostatic hypertrophy. 6. Obesity. HOSPITAL COURSE: This is a 61-year-old male with past medical history of type 2 diabetes, essential hypertension, and dyslipidemia, who came to the emergency room with chief complaint of hyperglycemia. The patient was also complaining of generalized weakness. He denied any polyuria, polydipsia, or polyphagia. In the emergency room, the patient was noticed to have a blood glucose of 442. The patient was also noticed to have some anion gap acidosis. However, the patient had no evidence of any ketosis or ketonuria. The patient was briefly started on an insulin drip at the emergency room and this was discontinued after the patient was started on subcutaneous insulin once his anion gap was closed. The patient was later transferred to medical/surgical floor. The patient was started on insulin regimen with premeal insulin, basal insulin and sliding scale insulin. The patient's insulin dosing had to be adjusted multiple times to obtain optimal blood sugar control. It has to be mentioned that the patient has been noncompliant with his diet restrictions during this hospital course. This made adjusting the insulin very difficult. The patient was also started on metformin. The patient was seen and evaluated by a ems educator. The patient has underlying essential hypertension. He was maintained on antihypertensives for the same. The patient has dyslipidemia that was found to be significant. Hence, the patient's statin dosing was increased. The patient also has underlying BPH. The patient was maintained on tamsulosin for the same. The patient had a stable but prolonged hospital course because of the difficulty in controlling the patient's blood sugars since the patient was noncompliant with his dietary restrictions. The patient will be discharged home today. The patient's blood sugars are fairly well controlled. DISPOSITION/ PLAN: The patient will be discharged home today. The patient was instructed to take a low-cholesterol, low-carbohydrate controlled diet. He was instructed to take medications as per prescription which are listed below. He was instructed to resume activities as tolerated. He was instructed to follow up with a primary care physician in 2 weeks and if he does not have a primary care physician to please call Dr. Renard Ohara's office. The patient verbalized understanding of his discharge instructions. DISCHARGE PHYSICAL EXAMINATION: HEENT: Head normocephalic and atraumatic. Eyes: Anicteric sclerae. Conjunctivae clear. ENT: Nasal septum is midline. Oral mucosa is dry. NECK: Supple. No JVD noticed. RESPIRATORY: Bilaterally diminished breath sounds. No adventitious breath sounds heard. No use of accessory muscles of respiration. CARDIAC: Regular rate and rhythm. No murmurs heard. ABDOMEN: Soft, nontender and nondistended. Bowel sounds positive in all 4 quadrants. GENITOURINARY: Deferred. EXTREMITIES: No cyanosis, no clubbing, no edema. Peripheral pulses are palpable. NEUROLOGIC: The patient is awake, alert and oriented. Cranial nerves are grossly intact. CONDITION AT DISCHARGE: Stable. DISCHARGE MEDICATIONS: 1. Atorvastatin 40 mg p.o. at bedtime. 2. NovoLog insulin 12 units subcutaneously with meals. 3. Lantus insulin 36 units subcutaneous daily. 4. Amlodipine 10 mg p.o. daily. 5. Aspirin 81 mg p.o. daily. 6. Losartan 40 mg p.o. daily. 7. Flomax 0.4 mg q.p.m. The patient was also given a prescription for a glucometer including supplies for glucometer and also supplies including insulin syringes and insulin needles. PERTINENT LABORATORY AND DIAGNOSTIC DATA: 1. Latest CBC: WBC 9.9, hemoglobin 15.5, hematocrit 47.2, platelet count 208. 2. Latest BMP: Sodium 141, potassium 4.9, chloride 99, carbon dioxide 30, anion gap 17, BUN 16, creatinine 0.97, glucose 222, calcium 9.6, phosphorus 4.6 , magnesium 1.6. 3. Hemoglobin A1c 12.9. 4. Fasting lipid panel: Triglycerides 448, total cholesterol 210, LDL 93, HDL 27. 5. Chest x-ray. No evidence of acute intrathoracic pathology or interval change from 06/05/2016. The case and management of this patient was fully discussed with Dr. Hamlin. Approximately 40 minutes was spent on coordinating the discharge on this patient. ONI HAMLIN MD, AM/MELY Conf#: [id number] DID#: [id number] [facility]
== END 2016-11-26 18:33 | disposition home or self-care (01) | DRG 638 ==
LOC: E/R 18:59 → MS4 11-22 05:41 → PP2 11-23 00:57
PROVIDERS: ADMIT Internal Medicine; ATTEND Internal Medicine
DX: E11.65 Type 2 diabetes mellitus with hyperglycemia (principal); E87.1 Hypo-osmolality and hyponatremia; I10 Essential (primary) hypertension; E78.5 Hyperlipidemia, unspecified; N40.0 Benign prostatic hyperplasia without lower urinary tract symptoms; E66.9 Obesity, unspecified; Z68.35 Body mass index [BMI] 35.0-35.9, adult; Z87.442 Personal history of urinary calculi; Z79.4 Long term (current) use of insulin; Z79.899 Other long term (current) drug therapy
CPT/HCPCS: 71010; 80048; 80053; 80061; 80307; 81003; 82962; 83036; 83605; 83735; 84100; 84484; 85025; 87086; 90686; J1650; J1815; J2405; J7030

== ENCOUNTER 2016-12-31 10:08 | Inpatient (IN) | payer OTHER ==
[~2016-12-31] VITALS: Ht 172.7 cm; Wt 103.4 kg
[~2016-12-31 10:08] MED LIST changes: +ATOR40TA68 PO; -CIPR500T4 PO; -HYDR-902 PO; -IBUP-1542 PO; -INSU100C SQ; -INSU100I31 SQ; +LANT3I SC; -LOVA20TA PO; +NOVO3I SC
--- NOTE | 2016-12-31 10:45 | ERA ---
ER Documentation Chief Complaint Date/Time DATE: 12/31/16 TIME: 10:42 Chief Complaint left eye swelling and left side facial paralysis no slurred speech, HPI Patient is a 61-year-old male who comes to the emergency department this morning reporting left-sided weakness with left-sided facial paralysis that started this morning around 830. He states that he was at a court house filing complaints when he first noted that he was having trouble seeing out of his left eye. He thought it had something to do with his glasses so he drove home. His roommate then commented that his face looked funny. He came here for further evaluation it was then they noted that his left side felt weaker than his right side. He states his left side is normally his strong side. He denies any chest pain, shortness of breath, coughing, congestion, rhinorrhea, sore throat, or otalgia. He states he does have a mild headache which is also new. He did not have any head trauma. He denies any photophobia, phonophobia, vomiting, nausea, neck pain, or stiffness. He states he has never had anything occur like this before. Nothing seems to make it better or worse. A code stroke was immediately called. The remainder review systems are negative. ROS All systems reviewed and are negative except as per history of present illness. Medications Home Meds Active Scripts Insulin Aspart* (Novolog Insulin Pen*) 100 Unit/Ml Soln, 12 UNIT SC WITH MEALS for 30 Days Prov:ONI RANGEL NP 11/26/16 Insulin Glargine* (Lantus*) 100 Unit/Ml Soln, 36 UNIT SC DAILY@08 for 30 Days Prov:ONI RANGEL NP 11/26/16 Atorvastatin* (Atorvastatin*) 40 Mg Tablet, 40 MG PO QHS for 30 Days, #30 TAB Prov:ONI RANGEL NP 11/26/16 Tamsulosin Hcl* (Flomax*) 0.4 Mg Cap.er.24h, 0.4 MG PO QPM, #30 CAP Prov:SANTIAGO PORTILLO MD 07/16/16 Reported Medications Losartan Potassium* (Losartan Potassium*) 50 Mg Tablet, 50 MG PO DAILY, TAB 07/16/16 Amlodipine Besylate* (Norvasc*) 5 Mg Tablet, 5 MG PO DAILY, TAB 07/16/16 Aspirin* (Aspirin* EC) 81 Mg Tablet.dr, 81 MG PO DAILY, TAB 06/03/16 Allergies Allergies: Coded Allergies: morphine (Verified Adverse Reaction, Intermediate, nuasea,vomiting, ) PMhx/Soc History of Surgery: No Anesthesia Reaction: No Hx Neurological Disorder: No Hx Respiratory Disorders: No Hx Cardiac Disorders: Yes Hx Psychiatric Problems: No Hx Miscellaneous Medical Probl: No Hx Alcohol Use: Yes (occasional) Hx Substance Use: Yes (amphetamine) Hx Tobacco Use: No FmHx Family History: coronary disease, diabetes Physical Exam Vitals Vital Signs Date Time Temp Pulse Resp B/P Pulse Ox O2 Delivery O2 Flow Rate FiO2 12/31/16 12:15 73 18 148/97 99 Room Air 12/31/16 10:17 Nasal Cannula 2 12/31/16 10:14 97.4 78 20 142/91 98 Physical Exam Const: [] Well-developed well-nourished male lying on the bed calmly Head: Atraumatic, left-sided ptosis noted Eyes: Normal Conjunctiva, extraocular motions are intact ENT: Normal External Ears, Nose and Mouth., Tympanic membranes are normal Neck: Full range of motion..~ No meningismus. No lymphadenopathy Resp: Clear to auscultation bilaterally Cardio: Regular rate and rhythm, no murmurs Abd: Soft, non tender, non distended. Normal bowel sounds Skin: No petechiae or rashes Back: No midline or flank tenderness Ext: No cyanosis, or edema Neur: Awake and alert, oriented 3, GCS of 15, weakness noted on the left upper and left lower extremities, ptosis of the left eyelid noted, no other cranial nerve involvement noted, no slurring of the speech Psych: Normal Mood and Affect Result Diagram: 12/31/16 1035 12/31/16 1035 Results 24 hrs Laboratory Tests Test 12/31/16 10:35 Activated Partial Thromboplast Time 26.2Sec Alanine Aminotransferase (ALT/SGPT) 29IU/L Albumin 4.0g/dl Albumin/Globulin Ratio 1.29 Alkaline Phosphatase 162IU/L Anion Gap 15 Aspartate Amino Transf (AST/SGOT) 15IU/L Basophils # 0.010^3/ul Basophils % 0.2% Blood Urea Nitrogen 13mg/dl Calcium Level 9.4mg/dl Carbon Dioxide Level 29mmol/L Chloride Level 99mmol/L Creatinine 0.80mg/dl Direct Bilirubin 0.00mg/dl Eosinophils # 0.110^3/ul Eosinophils % 1.0% Globulin 3.10g/dl Glucose Level 349mg/dl Hematocrit 45.4% Hemoglobin 15.0g/dl INR International Normalized Ratio 0.84 Indirect Bilirubin 0.0mg/dl Lymphocytes # 3.010^3/ul Lymphocytes % 24.3% Mean Corpuscular Hemoglobin 29.4pg Mean Corpuscular Hemoglobin Concent 33.0g/dl Mean Corpuscular Volume 89.0fl Mean Platelet Volume 10.8fl Monocytes # 0.510^3/ul Monocytes % 3.8% Neutrophils # 8.810^3/ul Neutrophils % 70.1% Nucleated Red Blood Cells # 0.010^3/ul Nucleated Red Blood Cells % 0.0/100WBC Platelet Count 37325^3/UL Potassium Level 5.0mmol/L Prothrombin Time 11.5Sec Prothrombin Time Ratio 0.9 Red Blood Count 5.1010^6/ul Red Cell Distribution Width 13.1% Sodium Level 138mmol/L Total Bilirubin 0.0mg/dl Total Protein 7.1g/dl Troponin I < 0.012ng/ml White Blood Count 12.510^3/ul Current Medications Medications (Trade) Dose Ordered Sig/Tawnya Route PRN Reason Start Time Stop Time Status Last Admin Dose Admin Alteplase, Recombinant (Activase) 9 mg BOLUS OVER 1 MIN ONCE IV* 12/31/16 11:00 12/31/16 11:01 DC Alteplase, Recombinant 81 mg 81 mg ISCHEMIC STROKE ONCE IV* 12/31/16 11:00 12/31/16 11:01 DC Sodium Chloride (NS) 50 ml @ 0 mls/hr FLUSH AFTER TPA ONCE IV 12/31/16 11:00 12/31/16 11:01 DC IV Flush 10 ml 10 ml STK-MED ONCE .ROUTE 12/31/16 10:47 12/31/16 10:48 DC 12/31/16 11:14 Sodium Chloride (NS) 100 ml @ ud STK-MED ONCE .ROUTE 12/31/16 10:47 12/31/16 10:48 DC 12/31/16 11:14 Iodixanol (Visipaque Locm) 100 ml STK-MED ONCE .ROUTE 12/31/16 10:47 12/31/16 10:48 DC 12/31/16 11:14 Procedures/MDM Differential includes but is not limited to acute CVA, acute hemorrhage, aneurysm, tumor, electrolyte disturbance EKG: Rate/Rhythm: Normal Sinus Rhythm at 75 bpm, borderline right ventricular conduction delay without any evidence of acute ischemia noted, no old EKG available for comparison QRS, ST, T-waves: No changes consistent w/ acute ischemia Impression: No evidence of ischemia or arrhythmia Chest x-ray does not reveal any acute cardiopulmonary process per the radiologist CT the head does not reveal any acute intracranial hemorrhage nor does her reveal any acute ischemic stroke per the radiologist CT angiogram does not reveal any acute aneurysm per the radiologist The neurologist stated that she did not want to give TPA at this time after evaluating the patient. Critical care time of 40 minutes not to include any procedures. 1300: Patient's left-sided deficit continues but has not progressed. I have consulted the panel physician to admit him to the hospital for further evaluation and treatment. Departure Diagnosis: Primary Impression: CVA (cerebrovascular accident) Qualified Code: I63.9 - Cerebrovascular accident (CVA), unspecified mechanism Additional Impressions: Diabetes mellitus Qualified Code: E11.49 - Type 2 diabetes mellitus with other neurologic complication, unspecified alf insulin use status Hypertension Qualified Code: I10 - Essential hypertension Hyperlipidemia associated with type 2 diabetes mellitus Condition: NANCY iLang Dec 31, 2016 10:45
[2016-12-31 10:46] LABS: ADD SCAN DIFF NO
[2016-12-31] MEDS ORDERED: SOD CHLORIDE 0.9% 100 ML ONE (10:47)
[2016-12-31] MEDS ORDERED: IODIXANOL LOCM 100 ML BTL ONE (10:47)
[2016-12-31 10:52] LABS: BASOPHILS % 0.2 % (0.0-2.0); EOSINOPHILS # 0.1 10^3/ul (0.0-0.5); HEMATOCRIT 45.4 % (42.0-52.0); LYMPHOCYTES % 24.3 % (15.0-51.0); MEAN CORPUSCULAR HEMOGLOBIN 29.4 pg (29.0-33.0); MEAN PLATELET VOLUME 10.8 fl (7.4-10.4); MONOCYTE # 0.5 10^3/ul (0.3-0.9); MONOCYTES % 3.8 % (0.0-11.0); NEUTROPHIL # 8.8 10^3/ul (1.6-7.5); NEUTROPHILS % 70.1 % (39.0-77.0); PLATELET COUNT 235 10^3/UL (140-415); RED CELL DISTRIBUTION WIDTH 13.1 % (11.5-14.5); WHITE BLOOD COUNT 12.5 10^3/ul (4.8-10.8)
--- NOTE | 2016-12-31 10:56 | RADRPT ---
PROCEDURE: CT Brain without contrast. CLINICAL INDICATION: Possible stroke TECHNIQUE: CT scan of the brain was performed on a multidetector high-resolution CT scan. Axial im aging was obtained of the brain without contrast administration. Coronal and sagittal reformatted i mages were obtained from the axial source images. Standard CT scan of the head without contrast prot ocols were performed. The total exam CTDI equals 44.9 mGy and the total exam DLP equals 720.23 mGy-cm. One or more of the following dose reduction techniques were used: - Automated exposure control. - Adjustment of the mA and/or kV according to patient size. Use of iterative reconstruction technique. COMPARISON: CT scan of the head without contrast 07/16/2016 FINDINGS: The ventricular system and peripheral CSF spaces are unremarkable. Negative for intracranial masses hemorrhages or midline shift. There is mild nonspecific periventricular deep white matter changes consistent with chronic microvascular ischemic disease. The faith-white matter junction is unremarka ble. New the bones and calvarium are intact. The paranasal sinuses and mastoids are unremarkable. IMPRESSION: 1. No evidence of intracranial masses hemorrhages or midline shift. 2. Mild nonspecific chronic microvascular ischemic changes. RPTAT:AAJJ Physician Brad Date Time Electronically viewed and signed by Physician Brad on 12/31/2016 10:55 BM/
[2016-12-31] MEDS ORDERED: SOD CHLORIDE 0.9% 50 ML IV ONE (11:00)
[2016-12-31] MEDS ORDERED: ALTEPLASE 100 MG INJ IV* ONE (11:00)
[2016-12-31] MEDS ORDERED: ALTEPLASE (tPA) 1 MG/ML BOLUS SYG IV* ONE (11:00)
--- NOTE | 2016-12-31 11:11 | RADRPT ---
PROCEDURE: Chest x-ray CLINICAL INDICATION: Focal neurologic deficit TECHNIQUE: Chest single view COMPARISON: 11/21/2016 FINDINGS: The heart is normal in size. The pulmonary vessels are normal in caliber. The lungs are clear. Th e costophrenic angles are sharp. The visualized bony thorax is unremarkable. IMPRESSION: No acute cardiopulmonary disease. No interval change RPTAT: HH .Naseem Benitez MD, MD Date Time Electronically viewed and signed by .Naseem Benitez MD, on 12/31/2016 11:11 .W/
[2016-12-31 11:14] LABS: CHLORIDE 99 mmol/L (97-110); INR 0.84; PROTIME 11.5 Sec (12.2-14.2); PT RATIO 0.9; SODIUM 138 mmol/L (135-144)
[2016-12-31 11:15] LABS: PARTIAL THROMBOPLASTIN TIME 26.2 Sec (25.0-35.0)
[2016-12-31 11:16] LABS: ALBUMIN/GLOBULIN RATIO 1.29; ANION GAP 15 (8-16); ASPARTATE AMINO TRANSFERASE 15 IU/L (15-46); BLOOD UREA NITROGEN 13 mg/dl (7-20); CARBON DIOXIDE 29 mmol/L (21-31); TOTAL PROTEIN 7.1 g/dl (6.1-8.1)
[2016-12-31 11:17] LABS: ALANINE AMINOTRANSFERASE 29 IU/L (13-69); ALKALINE PHOSPHATASE 162 IU/L (42-121); CALCIUM 9.4 mg/dl (8.4-10.2); GLUCOSE 349 mg/dl (70-220)
[2016-12-31 11:38] LABS: TROPONIN-I < 0.012 ng/ml (0.00-0.12)
--- NOTE | 2016-12-31 11:41 | RADRPT ---
PROCEDURE: CT angiogram of the brain with and without contrast. CLINICAL INDICATION: ptosis left side with weakness left side TECHNIQUE: CT scan of the brain without and with contrast was performed on a multidetector high-re solution CT scan. The patient was scanned following the uncomplicated intravenous administration of 85 ml Visipaque 320. Coronal and sagittal reformatted images were obtained from the axial source i mages. Standard CT angiogram of the brain with and without contrast protocols were performed. The total exam CTDI equals 54.25 mGy and the total exam DLP equals 7 or 93.72 mGy-cm. One or more of the following dose reduction techniques were used: - Automated exposure control. - Adjustment of the mA and/or kV according to patient size. Use of iterative reconstruction technique. COMPARISON: CT scan of the head without contrast earlier same day FINDINGS: There is mild to moderate hard atherosclerotic plaque involving the cavernous portions and the supra clinoid portions of the right and left internal carotid arteries without hemodynamically significant stenosis. Remainder of the right left distal internal carotid arteries are unremarkable. There ar e codominant distal vertebral arteries which are otherwise unremarkable. The basilar artery is unre markable. The right left anterior, middle and posterior cerebral arteries are unremarkable. [employer] ior communicating arteries are unremarkable. The cortical cerebral arteries are unremarkable. The sagittal, straight, transverse and sigmoid dural venous sinuses are unremarkable. No evidence of intracranial masses hemorrhages or midline shift. There are no enhancing lesions. T he bones and calvarium are intact. IMPRESSION: 1. Mild to moderate hard atherosclerotic plaque involving the cavernous portions and supraclinoid p ortions of the right left internal carotid arteries without hemodynamically significant stenosis. NA SCET criteria. 2. No evidence of thrombosis, dissection or aneurysm. 3. Unremarkable dural venous sinuses. RPTAT:AAJJ Physician Brad Date Time Electronically viewed and signed by Physician Brad on 12/31/2016 11:41 /
[2016-12-31] MEDS ORDERED: ONDANSETRON 4 MG INJ IV PRN ×2 (13:30→17:30)
[2016-12-31] MEDS ORDERED: ACETAMINOPHEN 325 MG TAB PO PRN ×2 (13:30→17:30)
[2016-12-31 17:25] VITALS: PULSE 72
[2016-12-31 17:30] VITALS: BP 128/72; PULSE 75; RESP 18; Ht 172.7 cm; Wt 103.4 kg
[2016-12-31] MEDS ORDERED: NACL 0.9% 3 ML SYG IV SCH (17:30)
[2016-12-31] MEDS ORDERED: HYDROCODONE/APAP (5/325) TAB PO PRN (17:30)
[2016-12-31] MEDS ORDERED: morphine 2 MG INJ IV PRN (17:30)
[2016-12-31] MEDS ORDERED: ZOLPIDEM 5 MG TAB PO PRN (17:30)
[2016-12-31] MEDS ORDERED: DOCUSATE SODIUM 100 MG CAP PO PRN (17:30)
[2016-12-31] MEDS: SOD CHLORIDE 0.45% 1,000 ML IV SCH (17:40)
[2016-12-31] MEDS ORDERED: GLUCOSE GEL 15 GRAM TUBE BUCCAL PRN (18:00)
[2016-12-31] MEDS ORDERED: DEXTROSE 50% 50 ML SYRINGE IV PRN ×2 (18:00)
[2016-12-31] MEDS ORDERED: GLUCOSE GEL 15 GRAM TUBE PO PRN ×2 (18:00)
[2016-12-31] MEDS ORDERED: GLUCAGON 1 MG INJ IM PRN (18:00)
--- NOTE | 2016-12-31 18:04 | HP ---
DATE OF ADMISSION: 12/31/2016 CHIEF COMPLAINT: Left-sided weakness. HISTORY OF PRESENT ILLNESS: The patient is a 61-year-old male with a history of uncontrolled diabet es, hypertension, dyslipidemia, BPH, obesity. The patient was recently hospitalized here for hyperg lycemia. The patient presents with left-sided pain. The patient has weakness in his face as well a s the left body that has improved. In the ED, the patient had a CT of the head that was negative fo r any acute changes. CT angiogram did not reveal any acute aneurysm. The patient did have a tele n eurologist evaluation. Tele neurologist did not feel that the patient should receive TPA. The danny ent's left-sided weakness is currently improved. He has no other complaints. PAST MEDICAL HISTORY: As per HPI. HOME MEDICATIONS: Please see medication reconciliation. ALLERGIES: MORPHINE. FAMILY HISTORY: Noncontributory. 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 REVIEW OF SYSTEMS: A 12-point review of systems is negative except for that as in HPI. PHYSICAL EXAMINATION: VITAL SIGNS: Temperature is 97.4, pulse is 66, respiratory rate 20, BP 111/70, saturation 99% on ro om air. GENERAL: No acute distress, alert and oriented. HEENT: Normocephalic, atraumatic. LUNGS: Clear to auscultation. CARDIOVASCULAR: Regular rate and rhythm. ABDOMEN: Nondistended, nontender, soft. EXTREMITIES: No clubbing, cyanosis, or edema. NEUROLOGIC: Left-sided weakness with strength 4-/5 on the left, 4+/5 on the right. Facial muscles are symmetric. LABORATORIES: White count is 12.5, hemoglobin is 15.0. Chemistry within normal limits except for g lucose 349. A1c is 11.8. DIAGNOSTICS: Chest x-ray shows no interval change, no acute disease. Brain CT shows no evidence of intracranial masses, chronic changes. Head CTA shows small to moderate hard atherosclerotic plaque involving the cavernous portions. No significant stenosis. No evidence of thrombosis, dissection, aneurysm. Unremarkable dural venous sinuses. ASSESSMENT AND PLAN: 1. Left-sided weakness, likely secondary to transient ischemic attack. The patient's weakness is i mproving. We will obtain ultrasound of the carotids. Obtain a 2D echo. 2. Diabetes, uncontrolled. The patient will be resumed on insulin. 3. Obesity. Lifestyle changes will be advised. 4. Hypertension. Resume home medications in the a.m. We will allow for permissive hypertension th is evening. 5. Prophylaxis: Lovenox. Dictated By: KENNETH GUILLEN MD BS/NTS Conf#: [id number] DID#: [id number]
--- NOTE | 2016-12-31 19:23 | RADRPT ---
PROCEDURE: US carotid arteries. CLINICAL INDICATION: Dizziness. TECHNIQUE: Multiple sonographic images of the carotid arteries and vertebral arteries were obtaine d utilizing faith scale, duplex, and color-flow imaging. The images were reviewed on a PACS workstati on. COMPARISON: No prior studies are available for comparison. FINDINGS: Evaluation of the right carotid bifurcation region reveals mild atherosclerotic disease. Evaluation of the left carotid bifurcation region reveals moderate atherosclerotic disease. There is antegrade flow within the vertebral arteries bilaterally. RIGHT CAROTID MEASUREMENTS: Common Carotid [id number] (cm/sec) Internal Carotid Artery 83 (cm/sec) External Carotid Artery 66 (cm/sec) Vertebral Artery 49 (cm/sec) Internal Carotid/Common Carotid1.2 LEFT CAROTID MEASUREMENTS: Common Carotid [id number] (cm/sec) Internal Carotid Artery 183 (cm/sec) External Carotid Artery 48 (cm/sec) Vertebral Artery 44 (cm/sec) Internal Carotid/Common Carotid1.9 Validated velocity measurements with angiographic measurements. Velocity criteria are extrapolated f rom diameter data as defined by the Society of Radiologists in Ultrasound Consensus Conference. Radi ology 2003; 229;340-346. This study does indirectly reference the measurement of the distal ICA flor meter as the denominator for stenosis measurement. IMPRESSION: 1. Less than 50% stenosis in the right internal carotid artery. 2. A 50 - 69% stenosis of the left internal carotid artery. 3. Normal antegrade flow in the vertebral arteries bilaterally. RPTAT: QQ SRU Consensus Conference Criteria for the Diagnosis of Carotid Artery Stenosis* Degree of Stenosis, % ICA PSV, cm/sec Plaque Estimate, % ICA/CCA PSV Ratio Normal <125 None <2.0 <50 <125 <50 <2.0 50 69 125-230 >50 2.0-4.0 >70 but less than near occlusion >230 >50 <4.0 Near occlusion High, low, or undetectable Visible Variable Total occlusion Undetectable Visible, no detectable lumen Not applicable *Cartoid artery stenosis: faith-scale and Doppler US diagnosis. Society of Radiologists in Ultrasound Consensus Conference. Radiology 2003; 229: 340-346 .Raul Aguilar MD, MD Date Time Electronically viewed and signed by .Raul Aguilar MDMD on 12/31/2016 19:22 .Miguel
[2016-12-31] MEDS ORDERED: INSULIN GLARGINE [LANtus] 3 ML PEN SC SCH (20:00)
--- NOTE | 2016-12-31 20:05 | STROKE ---
Date/Time of Note Date/Time of Note DATE: 12/31/16 TIME: 21:03 Patient Information General Patient location: emergency Arrival Date Age 61 Gender male Weight 103.36 kg POC Glucose Glucose Result Bedside Glucose - 72 Hours Test 12/31/16 17:18 Bedside Glucose 171mg/dL (70-220) Vital Signs Vital Signs Vital Signs Date Time Temp Pulse Resp B/P Pulse Ox O2 Delivery O2 Flow Rate FiO2 12/31/16 17:30 75 18 128/72 98 Room Air 12/31/16 10:17 2 12/31/16 10:14 97.4 Patient History Current Medications Allergies: Coded Allergies: No Known Allergies (Verified Allergy, Unknown, 12/31/16) morphine (Verified Adverse Reaction, Intermediate, nuasea,vomiting, ) Labs Hematology Labs Hematology Test 12/31/16 10:35 Basophils # 0.010^3/ul (0.0-0.1) Basophils % 0.2% (0.0-2.0) Eosinophils # 0.110^3/ul (0.0-0.5) Eosinophils % 1.0% (0.0-7.0) Hematocrit 45.4% (42.0-52.0) Hemoglobin 15.0g/dl (14.0-18.0) Lymphocytes # 3.010^3/ul (0.8-2.9) Lymphocytes % 24.3% (15.0-51.0) Mean Corpuscular Hemoglobin 29.4pg (29.0-33.0) Mean Corpuscular Hemoglobin Concent 33.0g/dl (32.0-37.0) Mean Corpuscular Volume 89.0fl (82.0-101.0) Mean Platelet Volume 10.8fl (7.4-10.4) Monocytes # 0.510^3/ul (0.3-0.9) Monocytes % 3.8% (0.0-11.0) Neutrophils # 8.810^3/ul (1.6-7.5) Neutrophils % 70.1% (39.0-77.0) Nucleated Red Blood Cells # 0.010^3/ul (0.0-0.0) Nucleated Red Blood Cells % 0.0/100WBC (0.0-0.0) Platelet Count 61727^3/UL (140-415) Red Blood Count 5.1010^6/ul (4.70-6.10) Red Cell Distribution Width 13.1% (11.5-14.5) White Blood Count 12.510^3/ul (4.8-10.8) Chemistry Labs Chemistry Test 12/31/16 10:35 12/31/16 17:18 Alanine Aminotransferase (ALT/SGPT) 29IU/L (13-69) Albumin 4.0g/dl (3.3-4.9) Albumin/Globulin Ratio 1.29 Alkaline Phosphatase 162IU/L (42-121) Anion Gap 15 (8-16) Aspartate Amino Transf (AST/SGOT) 15IU/L (15-46) Blood Urea Nitrogen 13mg/dl (7-20) Calcium Level 9.4mg/dl (8.4-10.2) Carbon Dioxide Level 29mmol/L (21-31) Chloride Level 99mmol/L (97-110) Creatinine 0.80mg/dl (0.61-1.24) Direct Bilirubin 0.00mg/dl (0.00-0.20) Globulin 3.10g/dl (1.3-3.2) Glucose Level 349mg/dl (70-220) Hemoglobin A1c 11.8% (0-5.9) Indirect Bilirubin 0.0mg/dl (0-1.1) Potassium Level 5.0mmol/L (3.5-5.1) Sodium Level 138mmol/L (135-144) Total Bilirubin 0.0mg/dl (0.2-1.3) Total Protein 7.1g/dl (6.1-8.1) Troponin I < 0.012ng/ml (0.00-0.12) Bedside Glucose 171mg/dL (70-220) Coagulation Labs: Coagulation Test 12/31/16 10:35 Activated Partial Thromboplast Time 26.2Sec (25.0-35.0) INR International Normalized Ratio 0.84 Prothrombin Time 11.5Sec (12.2-14.2) Prothrombin Time Ratio 0.9 History & Physical History of Present Illness 8:30 this am he had trouble seeing out of his L eye. he appears to have a ptosis and L weakness. He was at the police station filling out forms and he got very angry and then noticed blurred vision of the L eye, which was caused by L eye lid drooping. His leg leg is also weaker. NO headache or vertigo, no neck pain or trauma. he is able to speak normally NIH Stroke Scale NIH Stroke Scale 1A - Level of Conciousness: 0 - Alert keenly [id number] LOC Questions: 0 - Answers both [id number] - LOC Commands: 0 - Performs both tasks2 - Best Gaze: 0 - Normal3 - Visual: 0 - No visual loss4 - Facial Palsy: 0 - No visual loss 5A - Motor Arm - Left: 0 - No [id number] - Motor Arm - Right: 0 - No chvfb1O - Motor Leg - Left: 1 - Ssxvs8I - Motor Leg - Right: 0 - No drift7 - Limb Ataxia : 0 - Absent8 - Sensory: 1 - Mild to moderate loss9 - Best Language: 0 - No aphasia or normalDysarthria: 0 - [id number] - Extinction and inattentio: 0 - No abnormalityTotal Score: 2 Date/Time Recorded DATE: 12/31/16 TIME: 11:53 Submitted By Oziel Harmon t-PA Imaging Review Imaging Reviewed: Yes Date/Time Imaging Reviewed DATE: 12/31/16 TIME: 21:[address] negative t-PA Administration Weight 103.36 kg Recommedation submitted by Oziel Harmon Reason t-PA not Recommended symptoms mild and unclear etiology t-PA Not Recommended Date/Time 12/03/16 at 10:55 Recommendations 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 asa 325mg for now. check fasting lipids. CTA of head and neck echo, telemetry Diagnostic Labs: Lipid Proile Hgb A1C Therapy: Physical Therapy Speech Therapy Occupational Therapy Misc. Recommendations: Bedside Swallow Evaluation OZIEL HARMON Dec 31, 2016 20:05
[2016-12-31 20:08] VITALS: BP 153/83; RESP 16
[2016-12-31 20:10] VITALS: PULSE 67
[2016-12-31] MEDS: INSULIN ASPART [NOVOLOG] 3 ML PEN SC SCH (20:28)
[2016-12-31] MEDS ORDERED: ATORVASTATIN 40 MG TAB PO SCH (21:00)
[2016-12-31] MEDS ORDERED: TAMSULOSIN (SR) 0.4 MG CAP PO SCH (21:00)
[2016-12-31 23:57] VITALS: BP 106/54; RESP 16
[2017-01-01] VITALS (8 sets, daily range): BP systolic 88–121; BP diastolic 51–61; PULSE 58–74; RESP 16–18
[2017-01-01] MEDS: INSULIN ASPART [NOVOLOG] 3 ML PEN SC SCH ×4 (01:11→12:31)
[2017-01-01] MEDS: SOD CHLORIDE 0.45% 1,000 ML IV SCH ×2 (03:04→13:23)
[2017-01-01 08:08] LABS: ADD SCAN DIFF NO
[2017-01-01 08:11] LABS: BASOPHILS % 0.3 % (0.0-2.0); EOSINOPHILS # 0.2 10^3/ul (0.0-0.5); EOSINOPHILS % 1.9 % (0.0-7.0); HEMATOCRIT 43.8 % (42.0-52.0); HEMOGLOBIN 14.4 g/dl (14.0-18.0); LYMPHOCYTES # 3.3 10^3/ul (0.8-2.9); LYMPHOCYTES % 31.2 % (15.0-51.0); MEAN CORPUSCULAR HEMOGLOBIN 29.4 pg (29.0-33.0); MEAN CORPUSCULAR HGB CONC 32.9 g/dl (32.0-37.0); MEAN CORPUSCULAR VOLUME 89.6 fl (82.0-101.0); MEAN PLATELET VOLUME 11.5 fl (7.4-10.4); MONOCYTE # 0.4 10^3/ul (0.3-0.9); MONOCYTES % 3.9 % (0.0-11.0); NEUTROPHIL # 6.5 10^3/ul (1.6-7.5); PLATELET COUNT 213 10^3/UL (140-415); RED BLOOD COUNT 4.89 10^6/ul (4.70-6.10); RED CELL DISTRIBUTION WIDTH 13.2 % (11.5-14.5); WHITE BLOOD COUNT 10.5 10^3/ul (4.8-10.8)
[2017-01-01 08:32] LABS: POTASSIUM 3.9 mmol/L (3.5-5.1)
[2017-01-01 08:35] LABS: CREATININE 0.76 mg/dl (0.61-1.24)
[2017-01-01 08:36] LABS: CALCIUM 8.5 mg/dl (8.4-10.2); CHOL/HDL RATIO 5.3 RATIO; MAGNESIUM 1.8 mg/dl (1.7-2.5); PHOSPHORUS 3.9 mg/dl (2.5-4.9)
[2017-01-01] MEDS ORDERED: ASPIRIN (EC) 81 MG TAB PO SCH (09:00)
[2017-01-01] MEDS ORDERED: ENOXAPARIN 40 MG/0.4 ML SYG SC SCH (09:00)
[2017-01-01] MEDS ORDERED: NOVO3I SC (14:51)
[2017-01-01] MEDS ORDERED: LANT3I SC (14:51)
--- NOTE | 2017-01-01 14:52 | PDOCDIS ---
Discharge Instructions CONDITION Patient Condition: Good HOME CARE INSTRUCTIONS: Special Diet: DIABETIC DIET ACTIVITY: Activity Restrictions: No Restrictions FOLLOW UP/APPOINTMENTS Appointments F/U WITH YOUR PCP IN 1-2 WEEKS KENNETH GUILLEN Jan 01, 2017 14:52
--- NOTE | 2017-01-02 07:29 | DS ---
DATE OF ADMISSION: 12/31/2016 DATE OF DISCHARGE: 01/01/2017 DISCHARGE DIAGNOSES: 1. Left-sided weakness secondary to transient ischemic attack, now stable. 2. Diabetes with noncompliance. The patient will be prescribed insulin. 3. Obesity. Lifestyle changes once again advised. 4. Hypertension. Resume home medications. HOSPITAL COURSE: The patient is a 61-year-old male with history of uncontrolled diabetes, noncompli ance, hypertension, dyslipidemia, BPH, obesity. The patient was recently hospitalized for hypoglyce brock. The patient presents with left-sided weakness that improved during the hospitalization. The p atient was evaluated by teleneurology, and they did not feel that patient required tPA. The patient had a brain CT which showed no evidence of any acute process, nonspecific microvascular ischemic ch anges. The patient had a head CTA that showed mild to moderate hard atherosclerotic plaque without any hemodynamically significant stenosis. No evidence of thrombosis ____ aneurysm. Unremarkable du ral venous sinuses. The patient's chest x-ray was unremarkable, and a carotid Doppler study showed less than 50% stenosis of the right internal carotid artery and 50 to 69% stenosis in the left inter nal carotid artery. Normal flow in the vertebral arteries bilaterally was noted. The patient's lef t-sided weakness improved significantly. He was ambulating. He was tolerating a p.o. diet. He was felt to be stable for discharge. On day of discharge, the patient's vitals, labs, and physical exa m were stable. He had no acute complaints. Questions answered. CONDITION ON DISCHARGE: Stable. DISPOSITION: To home. MEDICATIONS: The patient is to continue his usual home medications. He was given a refill for his Lantus of 36 units daily and NovoLog of 12 units with meals. The patient was asked to continue his other home medications. FOLLOWUP: The patient is to follow up with PCP in 1 to 2 weeks. Greater than 30 minutes was spent coordinating discharge of this patient. Dictated By: KENNETH GUILLEN MD BS/NTS Conf#: [id number] DID#: [id number]
--- NOTE | 2017-01-02 20:04 | RADRPT ---
Echocardiogram Report Patient Name: ANA MARIA SANDERS Gender: Male Date: 1955 Study Date: 01-Jan-2017 [employer] T[employer]or: CHINTAN Location: I Ref. Physician: KENNETH GUILLEN Quality: Adequate Procedures: Transthoracic echocardiogram with complete 2D, M-Mode, and Doppler examination. Indications: Cerebrovascular Accident. 2D/M Mode Doppler Measurement Value Normal Ranges Measurement Value Normal Ranges AoR Diam MM 3.4 cm AV Peak John 1.1 m/sec ACS MM 2.0 cm AV Peak PG 5.2 mmHg LVIDd 2D 3.9 3.5 - 5.6 cm LVOT Peak John 0.8 m/sec LVIDs 2D 2.6 2.1 - 4.1 cm LVOT Peak PG 2.7 mmHg LVPWd 2D 1.2 0.6 - 1.1 cm MV E Peak John 0.7 m/sec IVSd 2D 1.4 0.6 - 1.1 cm MV A Peak John 0.5 m/sec EDV 2D 66.5 cm3 MV E/A 1.5 ESV 2D 17.5 cm3 MV Decel Time 161 msec LA Dimen 2D 3.7 2.3 - 4.0 cm MV Decel [place] 4 MV E/A 1.5 PV Peak John 1.0 m/sec PV Peak PG 4.0 mmHg Findings Left Ventricle: Normal left ventricular systolic function. Normal left ventricular cavity size. Mild concentric left ventricular hypertrophy. Ejection fraction is visually estimated at 65 %. No left ventricular thrombus visualized. Tissue Doppler/Mitral Doppler indices are within normal limits. E/E`=8. Right Ventricle: Normal right ventricular size. Normal right ventricular systolic function. Left Atrium: The left atrium is normal in size. Right Atrium: The right atrium is normal in size. Atrial Septum: Normal atrial septum. Mitral Valve: Normal appearance of the mitral valve. No mitral valve regurgitation is seen. Aortic Valve: No significant aortic stenosis or insufficiency. Normal trileaflet aortic valve structure. Tricuspid Valve: Normal appearance of the tricuspid valve. Unable to obtain RVSP due to minimal presence of tricuspid regurgitation. No evidence of tricuspid regurgitation. Pulmonic Valve: Normal pulmonic valve appearance. No evidence of pulmonic regurgitation. Pericardium: Normal pericardium with no significant pericardial effusion. Aorta: Normal aortic root. IVC: Normal size and normal respiratory collapse consistent with normal right atrial pressure. Pulmonary Artery: Normal pulmonary artery size. Conclusions 1.Normal left ventricular systolic function. Normal left ventricular cavity size. Mild concentric left ventricular hypertrophy. Ejection fraction is visually estimated at 65 %. No left ventricular thrombus visualized. Tissue Doppler/Mitral Doppler indices are within normal limits. E/E`=8. 2.No significant aortic stenosis or insufficiency. Normal trileaflet aortic valve structure. 3.Normal appearance of the mitral valve. No mitral valve regurgitation is seen. 4.Normal appearance of the tricuspid valve. Unable to obtain RVSP due to minimal presence of tricuspid regurgitation. No evidence of tricuspid regurgitation. Electronically Signed By: Kyler Escobedo 02-Jan-2017 20:03:15 -0700 Patient Name: ANA MARIA SANDERS Study Date: 01-Jan-2017 [id number]
== END 2017-01-01 16:42 | disposition home or self-care (01) | DRG 948 ==
LOC: E/R 10:08 → MS4 13:18
PROVIDERS: ADMIT Internal Medicine; ATTEND Internal Medicine
DX: R53.1 Weakness (principal); G45.9 Transient cerebral ischemic attack, unspecified; I10 Essential (primary) hypertension; E11.9 Type 2 diabetes mellitus without complications; E78.5 Hyperlipidemia, unspecified; E66.9 Obesity, unspecified; Z68.34 Body mass index [BMI] 34.0-34.9, adult; N40.0 Benign prostatic hyperplasia without lower urinary tract symptoms; Z91.14 Patient's other noncompliance with medication regimen
CPT/HCPCS: 36415; 70450; 70496; 71010; 80048; 80053; 80061; 82962; 83036; 83735; 84100; 84484; 85025; 85610; 85730; 93005; 93306; 93880; J1650; J1815; J2997; Q9967

== ENCOUNTER 2017-01-10 15:44 | Inpatient (IN) | payer OTHER ==
[~2017-01-10] VITALS: Ht 165.1 cm; Wt 106.0 kg
--- NOTE | 2017-01-10 15:52 | ERA ---
ER Documentation Chief Complaint Date/Time DATE: 01/10/17 TIME: 15:51 Chief Complaint LEFT SIDE FACIAL NUMBNESS AND LEFT ARM WEAKNESS FOR 1.5 HRS.LATHE SANDER. HPI The patient is a 61-year-old male, presenting to the ER because of left facial numbness, associated with left arm weakness that began about an hour and a half prior to arrival. He had a stroke about 10 days ago with my left hemiparesis. He denies headache, neck pain, complaints of left upper lip edema, complains of slurred speech, denies neck pain, chest pain, abdominal pain, vomiting, dysuria , diarrhea. He smokes a pack a day, denies drinking or using illicit drug Past medical history: History of CVA with mild left hemiparesis, diabetes mellitus, hypertension, dyslipidemia, BPH Past surgical history: Right knee ROS All systems reviewed and are negative except as per history of present illness. Medications Home Meds Active Scripts Insulin Aspart* (Novolog Insulin Pen*) 100 Unit/Ml Soln, 12 UNIT SC WITH MEALS, #1 VIAL 1 Refill Prov:KENNETH GUILLEN 01/01/17 Insulin Glargine* (Lantus*) 100 Unit/Ml Soln, 36 UNIT SC DAILY@08, #1 VIAL 1 Refill Prov:KENNETH GUILLEN 01/01/17 Atorvastatin* (Atorvastatin*) 40 Mg Tablet, 40 MG PO QHS for 30 Days, #30 TAB Prov:ONI RANGEL NP 11/26/16 Tamsulosin Hcl* (Flomax*) 0.4 Mg Cap.er.24h, 0.4 MG PO QPM, #30 CAP Prov:SANTIAGO PORTILLO MD 07/16/16 Reported Medications Losartan Potassium* (Losartan Potassium*) 50 Mg Tablet, 50 MG PO DAILY, TAB 07/16/16 Amlodipine Besylate* (Norvasc*) 5 Mg Tablet, 5 MG PO DAILY, TAB 07/16/16 Aspirin* (Aspirin* EC) 81 Mg Tablet.dr, 81 MG PO DAILY, TAB 06/03/16 Allergies Allergies: Coded Allergies: morphine (Verified Adverse Reaction, Intermediate, nuasea,vomiting, ) PMhx/Soc History of Surgery: Yes (Knee sx) Anesthesia Reaction: No Hx Neurological Disorder: Yes (HERE FOR LEFT EYE DROOP ) Hx Respiratory Disorders: No Hx Cardiac Disorders: Yes (HTN HLD) Hx Psychiatric Problems: No Hx Miscellaneous Medical Probl: Yes (ETOH, SMOKES AND DOES METHANFETHAMINE) Hx Alcohol Use: Yes Hx Substance Use: Yes Hx Tobacco Use: Yes Physical Exam Vitals Vital Signs Date Time Temp Pulse Resp B/P Pulse Ox O2 Delivery O2 Flow Rate FiO2 01/10/17 15:47 98.9 82 21 161/95 96 Physical Exam Const: No acute distress. Head: Atraumatic. Eyes: Normal Conjunctiva. ENT: Normal External Ears, Nose and Mouth. Neck: Full range of motion. No meningismus. Resp: Clear to auscultation bilaterally. Cardio: Regular rate and rhythm, no murmurs. Abd: Soft, non distended, normal bowel sounds, non tender. Skin: No petechiae or rashes. Back: No midline or flank tenderness. Ext: No cyanosis, or edema. Neur: Awake and alert. Left upper and left lower extremity are 4+ Psych: Normal Mood and Affect. Result Diagram: 01/10/17 1644 01/10/17 1644 Results 24 hrs Laboratory Tests Test 01/10/17 16:24 01/10/17 16:44 Hemoglobin A1c 10.5% White Blood Count 12.210^3/ul Red Blood Count 4.7110^6/ul Hemoglobin 14.2g/dl Hematocrit 42.2% Mean Corpuscular Volume 89.6fl Mean Corpuscular Hemoglobin 30.1pg Mean Corpuscular Hemoglobin Concent 33.6g/dl Red Cell Distribution Width 13.2% Platelet Count 44365^3/UL Mean Platelet Volume 10.9fl Neutrophils % 64.8% Lymphocytes % 27.2% Monocytes % 4.7% Eosinophils % 2.4% Basophils % 0.3% Nucleated Red Blood Cells % 0.0/100WBC Neutrophils # 7.910^3/ul Lymphocytes # 3.310^3/ul Monocytes # 0.610^3/ul Eosinophils # 0.310^3/ul Basophils # 0.010^3/ul Nucleated Red Blood Cells # 0.010^3/ul Prothrombin Time 11.6Sec Prothrombin Time Ratio 0.9 INR International Normalized Ratio 0.85 Activated Partial Thromboplast Time 27.9Sec Sodium Level 139mmol/L Potassium Level 4.7mmol/L Chloride Level 103mmol/L Carbon Dioxide Level 29mmol/L Anion Gap 12 Blood Urea Nitrogen 15mg/dl Creatinine 0.84mg/dl Glucose Level 215mg/dl Calcium Level 9.3mg/dl Troponin I < 0.012ng/ml Ethyl Alcohol Level < 10.0mg/dl Procedures/MDM [place] [id number] Radiology Main Line: [phone] DIAGNOSTIC IMAGING REPORT Patient: ANA MARIA SANDERS : 1955 Age: 61 Sex: M MR #: [id number] DOS: 01/10/17 1601 Ordering MD: LIAT STONE MD Location: E/R Room/Bed: PROCEDURE: XR Chest. CLINICAL INDICATION: Possible stroke. TECHNIQUE: Single frontal view of the chest was obtained COMPARISON: Chest x-ray 12/31/2016. FINDINGS: The soft tissues are normal. There are degenerative osteophytes in the thoracic spine. The left ventricle is mildly enlarged. The cardiomediastinal silhouette and hilar structures are normal. The pulmonary vasculature is normal. There is a left-sided aorta. The lungs are clear. Costophrenic angles are normal. There are old posterior left sided rib fractures. IMPRESSION: 1. Stable chest x-ray with no evidence of active cardiopulmonary disease. 2. Old healed fractures of the posterior left fourth, fifth and sixth ribs. RPTAT:AAJJ Physician Jorge Date Time Electronically viewed and signed by Mitul Beltre Physician on 01/10/2017 17:00 JM/ CC: LIAT STONE MD [place] [id number] Radiology Main Line: [phone] DIAGNOSTIC IMAGING REPORT Patient: ANA MARIA SANDERS : 1955 Age: 61 Sex: M MR #: [id number] DOS: 01/10/17 1601 Ordering MD: LIAT STONE MD Location: E/R Room/Bed: PROCEDURE: CT brain without contrast CLINICAL INDICATION: Code stroke, left upper extremity weakness TECHNIQUE: CT of the brain without contrast was performed on a multidetector CT scanner, with multiplanar reformats. One or more of the following dose reduction techniques were used: Automated exposure control, adjustment in mA and / or kV according to patient size, use of iterative reconstructive technique. CTDIvol = 45 mGy; DLP = 630 mGy-cm. COMPARISON: CT brain 12/31/2016 FINDINGS: No acute intracranial hemorrhage is identified. No extra-axial fluid collection is seen. There is no mass effect. No midline shift is identified. Ventricles and sulci are mildly enlarged compatible with volume loss. There are mild areas of hypodensity in the periventricular - deep white matter which are nonspecific but suggestive of chronic small vessel ischemic changes. Mendez-white differentiation is preserved. Atherosclerotic calcifications of the intracranial internal carotid arteries are noted. Osseous structures are unremarkable. Mastoid air cells and imaged paranasal sinuses grossly clear. IMPRESSION: 1. No acute intracranial pathology identified. 2. Mild volume loss, with mild chronic small vessel ischemic changes. Results called to Dr. Stone at 04:20 p.m., 01/10/2017. RPTAT: TT .Sven Delarosa MD, MD Date Time Electronically viewed and signed by .Sven Delarosa MD, MD on 01/10/2017 16:22 .O/ CC: LIAT STONE MD EKG: Read by emergency physician Rate/Rhythm: Normal Sinus Rhythm 77 beats/min QRS, ST, T-waves: No ST elevation, no T inversion, sinus arrhythmia, incomplete right bundle branch block, low voltage Impression: Abnormal EKG MEDICAL MAKING DECISION: The patient is a 61-year-old male, presenting with acute on chronic left arm weakness of unclear etiology. The differential diagnoses considered include but are not limited to TIA, cervical radiculopathy , anxiety attack, panic attack Consultation: He was evaluated by stroke neurologist Dr. Heaton who did not think the patient is a TPA candidate. He recommended admitting for further workup. I discussed the patient with the stroke neurologist at 4:20 PM Departure Diagnosis: Primary Impression: Left arm weakness Condition: Stable Comments I discussed the findings with the patient. I discussed the patient with the on- call hospitalist Dr. Xie who was made aware of the lab, the treatment, the patient condition. The patient is admitted to telemetry at 6 PM LIAT STONE MD Jan 10, 2017 15:52
--- NOTE | 2017-01-10 16:22 | RADRPT ---
PROCEDURE: CT brain without contrast CLINICAL INDICATION: Code stroke, left upper extremity weakness TECHNIQUE: CT of the brain without contrast was performed on a multidetector CT scanner, with multi planar reformats. One or more of the following dose reduction techniques were used: Automated expos ure control, adjustment in mA and / or kV according to patient size, use of iterative reconstructive technique. CTDIvol = 45 mGy; DLP = 630 mGy-cm. COMPARISON: CT brain 12/31/2016 FINDINGS: No acute intracranial hemorrhage is identified. No extra-axial fluid collection is seen. There is no mass effect. No midline shift is identified. Ventricles and sulci are mildly enlarged compatible with volume loss. There are mild areas of hypodensity in the periventricular - deep white matter which are nonspecific but suggestive of chronic small vessel ischemic changes. Mendez-white differentiation is preserved. Atherosclerotic calcifications of the intracranial internal carotid arteries are noted. Osseous structures are unremarkable. Mastoid air cells and imaged paranasal sinuses grossly clear. IMPRESSION: 1. No acute intracranial pathology identified. 2. Mild volume loss, with mild chronic small vessel ischemic changes. Results called to Dr. Schumacher at 04:20 p.m., 01/10/2017. RPTAT: TT .Sven Delarosa MD, Date Time Electronically viewed and signed by .Sven Delarosa MD, on 01/10/2017 16:22 .O/
[2017-01-10 16:53] LABS: ADD SCAN DIFF NO
[2017-01-10 16:56] LABS: BASOPHILS % 0.3 % (0.0-2.0); EOSINOPHILS # 0.3 10^3/ul (0.0-0.5); EOSINOPHILS % 2.4 % (0.0-7.0); HEMATOCRIT 42.2 % (42.0-52.0); HEMOGLOBIN 14.2 g/dl (14.0-18.0); LYMPHOCYTES # 3.3 10^3/ul (0.8-2.9); LYMPHOCYTES % 27.2 % (15.0-51.0); MEAN CORPUSCULAR HEMOGLOBIN 30.1 pg (29.0-33.0); MEAN CORPUSCULAR HGB CONC 33.6 g/dl (32.0-37.0); MEAN CORPUSCULAR VOLUME 89.6 fl (82.0-101.0); MEAN PLATELET VOLUME 10.9 fl (7.4-10.4); MONOCYTE # 0.6 10^3/ul (0.3-0.9); MONOCYTES % 4.7 % (0.0-11.0); NEUTROPHIL # 7.9 10^3/ul (1.6-7.5); NEUTROPHILS % 64.8 % (39.0-77.0); PLATELET COUNT 252 10^3/UL (140-415); RED BLOOD COUNT 4.71 10^6/ul (4.70-6.10); RED CELL DISTRIBUTION WIDTH 13.2 % (11.5-14.5); WHITE BLOOD COUNT 12.2 10^3/ul (4.8-10.8)
--- NOTE | 2017-01-10 17:01 | RADRPT ---
PROCEDURE: XR Chest. CLINICAL INDICATION: Possible stroke. TECHNIQUE: Single frontal view of the chest was obtained COMPARISON: Chest x-ray 12/31/2016. FINDINGS: The soft tissues are normal. There are degenerative osteophytes in the thoracic spine. The left ve ntricle is mildly enlarged. The cardiomediastinal silhouette and hilar structures are normal. The p ulmonary vasculature is normal. There is a left-sided aorta. The lungs are clear. Costophrenic ang les are normal. There are old posterior left sided rib fractures. IMPRESSION: 1. Stable chest x-ray with no evidence of active cardiopulmonary disease. 2. Old healed fractures of the posterior left fourth, fifth and sixth ribs. RPTAT:AAJJ Physician Jorge Date Time Electronically viewed and signed by Mitul Beltre Physician on 01/10/2017 17:00 LATIA/
[2017-01-10 17:02] LABS: CHLORIDE 103 mmol/L (97-110)
[2017-01-10 17:03] LABS: POTASSIUM 4.7 mmol/L (3.5-5.1); SODIUM 139 mmol/L (135-144)
[2017-01-10 17:04] LABS: INR 0.85; PARTIAL THROMBOPLASTIN TIME 27.9 Sec (25.0-35.0); PROTIME 11.6 Sec (12.2-14.2); PT RATIO 0.9
[2017-01-10 17:05] LABS: ANION GAP 12 (8-16); CARBON DIOXIDE 29 mmol/L (21-31); CREATININE 0.84 mg/dl (0.61-1.24)
[2017-01-10 17:06] LABS: BLOOD UREA NITROGEN 15 mg/dl (7-20); CALCIUM 9.3 mg/dl (8.4-10.2); GLUCOSE 215 mg/dl (70-220)
[2017-01-10 17:08] LABS: ETHANOL < 10.0 mg/dl
[2017-01-10 17:21] LABS: TROPONIN-I < 0.012 ng/ml (0.00-0.12)
--- NOTE | 2017-01-10 18:44 | CONS ---
DATE OF ADMISSION: 01/10/2017 DATE OF CONSULTATION: 01/10/2017 REASON FOR CONSULTATION: I was asked to see the patient for concern of worsening stroke. HISTORY OF PRESENT ILLNESS: The patient has prior history of diabetes as well as hypertension. He was previously seen in the last week for stroke-like symptoms with resulting left-sided weakness. T he patient's workup revealed a left ICA stenosis of 70% and a right ICA stenosis of 50%. The patien t was not noted to have any dysrhythmia, was discharged on antiplatelet medications. The patient no w returns with concerns of worsened left-sided weakness from this morning. The patient denies any i nfection, acute illness. The patient reports compliance with medications. It is unclear what the p atient's degree of weakness was after his most recent stroke. The patient denies any type of illici t drug use. PHYSICAL EXAMINATION: A full NIH Stroke Scale score was completed. The patient scored 0 for level of consciousness as well as 1b and 1c was a 0. Best gaze was a 0. Visual was a 0. Facial palsy wa s a 1 for facial weakness. Motor on the left arm was a 1, and the left leg was a 1. Right arm and leg were a 0. Ataxia was a 0. Sensory was a 0. Language was a 0. Dysarthria was a 0. Extinction and attention were a 0. IMAGING: Review of the patient's noncontrast head CT showed no acute findings. ASSESSMENT: This is a gentleman with subjective worsening of left-sided weakness resulting from rec ent stroke. The patient had worsening of his baseline condition related to metabolic factors, or he could have a worsened infarction. The patient should have a metabolic workup which includes urinal ysis, chemistries, CBC, after which further things can be explored which can be worsening his condit ion. The patient's blood sugar should be kept between 80 and 180 mg/dL. He should be kept free fro m fever, and MRI scan should be reviewed to see if there is new infarction. Local neurologic consul tation should be sought. The patient is not a thrombolytic candidate given his recent infarction. Dictated By: KYLIE LIU CM/MELY Conf#: [id number] DID#: [id number]
[2017-01-10] MEDS ORDERED: HYDROCODONE/APAP (5/325) TAB PO PRN (19:00)
[2017-01-10] MEDS ORDERED: ALBUTEROL/IPRATROPIUM (NEB) 3 ML AMP HHN PRN (19:00)
[2017-01-10] MEDS ORDERED: NITROGLYCERIN (SL) 0.4 MG TAB SL PRN (19:00)
[2017-01-10] MEDS ORDERED: ACETAMINOPHEN 325 MG TAB PO PRN (19:00)
[2017-01-10] MEDS ORDERED: morphine 2 MG INJ IV PRN (19:00)
[2017-01-10] MEDS ORDERED: NA PHOSPHATE/BIPHOS 133 ML ENEMA PR PRN (19:00)
[2017-01-10] MEDS ORDERED: hydrALAzine 20 MG INJ IV PRN (19:00)
[2017-01-10] MEDS ORDERED: NACL 0.9% 3 ML SYG IV SCH (19:00)
[2017-01-10] MEDS ORDERED: LORAZEPAM 2 MG INJ IV PRN (19:00)
[2017-01-10] MEDS ORDERED: DOCUSATE SODIUM 100 MG CAP PO PRN (19:00)
[2017-01-10] MEDS ORDERED: MAGNESIUM HYDROXIDE 30ML CUP PO PRN (19:00)
[2017-01-10] MEDS ORDERED: ONDANSETRON 4 MG INJ IV PRN (19:00)
[2017-01-10] MEDS ORDERED: DEXTROSE 50% 50 ML SYRINGE IV PRN ×4 (19:30)
[2017-01-10] MEDS ORDERED: GLUCOSE GEL 15 GRAM TUBE PO PRN ×4 (19:30)
[2017-01-10] MEDS ORDERED: GLUCOSE GEL 15 GRAM TUBE BUCCAL PRN ×2 (19:30)
[2017-01-10] MEDS ORDERED: GLUCAGON 1 MG INJ IM PRN ×2 (19:30)
--- NOTE | 2017-01-10 19:41 | HP ---
DATE OF ADMISSION: 01/10/2017 CHIEF COMPLAINT: Face numbness and left upper extremity weakness. HISTORY OF PRESENT ILLNESS: A 61-year-old male with past medical history of diabetes type 2, essent ial hypertension, high cholesterol, and TIA diagnosed 10 days ago, who has been complaining of left upper extremity weakness that began around 4:00 a.m. this morning. He described his left hand as be ing swollen. Denies any left lower extremity weakness or any other focal deficits until 2:30 p.m. t his afternoon when he started developing some face numbness. No headaches or dizziness or loss of c onsciousness. No chest pain, no shortness of breath. No upper or lower GI bleeding. No nausea, vo miting. No fevers or chills. When the patient was here last admission, 10 days ago, diagnosed with TIA, he had similar symptoms and, at that time, he was diagnosed with TIA, but did not have an MRI of the brain at that time. Teleneurologist was called today and there was no input about starting a ny TPA at this time. They did recommend an MRI of the brain; however, which is pending. PAST MEDICAL HISTORY: As stated above. ALLERGIES: MORPHINE. HOME MEDICATIONS: 1. Flomax 0.4 mg q.p.m. 2. Norvasc 5 mg daily. 3. Atorvastatin 40 mg at bedtime. 4. Losartan 50 mg daily. 5. Aspirin 81 mg daily. 6. Aspart insulin 12 units with meals. 7. Lantus 36 units daily. PAST SURGICAL HISTORY: He had knee surgery in the past. FAMILY HISTORY: Noncontributory. SOCIAL HISTORY: He smokes cigarettes 1 pack a day for the last 50 years. Drinks occasional alcohol . Apparently does methamphetamine occasionally. PHYSICAL EXAMINATION: VITAL SIGNS: Today, T-max 98.9, pulse 82, respirations 21, blood pressure 161/95, saturating at 98% on room air. GENERAL: The patient is lying in bed, answering questions appropriately. No acute distress. HEENT: Pupils equal, round, react to light. Extraocular muscles intact. Slightly slurred speech, but comprehensible. NECK: Supple. No thyromegaly. LUNGS: Clear to auscultation bilaterally. CARDIOVASCULAR: S1, S2 heard. No rubs, gallops. ABDOMEN: Soft, nontender, nondistended. Normal bowel sounds. No rebound or guarding. MUSCULOSKELETAL: ____. NEUROLOGIC: He has 4/5 strength left upper extremity. 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 The rest of the neurologic exam appears normal, although he has slightly slurred speech. No s igns of any facial droop. LABORATORIES: WBC 12.2, hemoglobin 14.2, hematocrit 42.2, platelets 252. Basic metabolic panel is normal. Hemoglobin A1c is 10.5. Troponin is negative x1. Blood alcohol level is negative. Head C T was performed. It shows no acute intracranial pathology identified. Chest x-ray: Stable chest x -ray, no evidence of any active cardiopulmonary disease. ASSESSMENT AND PLAN: A 61-year-old male coming in with facial numbness and left upper extremity wea kness, possible worsening signs of stroke versus transient ischemic attack. 1. Left upper extremity weakness and facial numbness. Again, admit the patient to telemetry floor. I will get PT, OT, and speech therapy consults. We will get MRI of the brain, 2D echocardiogram, as well as carotid Dopplers. Get a neurology consult as well. Put him on high dose aspirin, high d ose Lipitor as well. Do neuro checks every 4 hours. Keep the systolic blood pressure in the 180 to 220 range for now. 2. History of type 2 diabetes. We mentioned A1c is 10.5. Continue current insulin doses and add s liding scale insulin. 3. Essential hypertension. Again, allow for permissive hypertension for now. 4. High cholesterol. Check a lipid panel. Continue statin. 5. Gastrointestinal prophylaxis. Proton pump inhibitor. 6. Deep venous thrombosis prophylaxis. Heparin subQ. Dictated By: LELO SPARKS Conf#: [id number] DID#: [id number]
--- NOTE | 2017-01-10 20:11 | RADRPT ---
PROCEDURE: US Carotids. CLINICAL INDICATION: bruit , dizzy TECHNIQUE: Multiple sonographic of the carotid bifurcation region and vertebral arteries were obta ined utilizing faith scale, duplex and color-flow imaging. The images were reviewed on a PACS worksta tion. COMPARISON: 12/31/2016 FINDINGS: Evaluation of the right carotid bifurcation region reveals mild calcific atherosclerotic disease. th ere is mild soft plaque. There is a 30% stenosis in the right common carotid artery. There is a 35% stenosis in the right carotid bulb. Evaluation of the left carotid bifurcation region reveals mild calcific atherosclerotic disease. . T here is mild soft plaque. There is a 22% stenosis in the left distal common carotid artery. There is an 18% stenosis in the left carotid bulb. There is antegrade flow within the vertebral arteries bilaterally. RIGHT CAROTID MEASUREMENTS: Common Carotid Maxxbh39.2 (cm/sec) Internal Carotid Artery - djrmzfjy03.7 (cm/sec) Internal Carotid Artery - mid48 (cm/sec) Internal Carotid Artery - qarxcf05.5 (cm/sec) Internal Carotid/Common Carotid0.81 LEFT CAROTID MEASUREMENTS: Common Carotid Qlbunz20.7 (cm/sec) Internal Carotid Artery - .3 (cm/sec) Internal Carotid Artery - ydw199 (cm/sec) Internal Carotid Artery - vsmsot20.8 (cm/sec) Internal Carotid/Common Carotid2.09 RPTAT: AA IMPRESSION: 50-69% stenosis in the left ICA. - validated velocity measurements with angiographic measurements, v elocity criteria are extrapolated from diameter data as defined by the Society of Radiologists in [facility] Consensus Conference Radiology 2003; 229;340-346. This study does indirectly reference the measurement of the distal ICA diameter as the denominator for stenosis measurement. Normal antegrade flow in the vertebral arteries bilaterally. .Alejandro Canas MD, Date Time Electronically viewed and signed by .Alejandro Canas MD, MD on 01/10/2017 20:11 .S/
[2017-01-10] MEDS: INSULIN ASPART [NOVOLOG] 3 ML PEN SC SCH (21:00)
--- NOTE | 2017-01-10 22:02 | RADRPT ---
PROCEDURE: MR Brain without contrast. CLINICAL INDICATION: Facial and arm numbness TECHNIQUE: An MRI of the brain was performed on a 1.5 tameka scanner utilizing the following sequen michael: Sagittal T1 weighted, axial T2 weighted, axial FLAIR, coronal GRE, and axial diffusion weighted with ADC mapping. COMPARISON: CT brain FINDINGS: No evidence of restricted diffusion to suggest acute or early subacute ischemic infarction. There i s no evidence of intracranial hemorrhage, mass effect, or midline shift. No extra-axial fluid collec tions are seen. No hypointense signal abnormalities are seen on the GRE images to suggest the presence of blood degr adation products. Pericallosal, periventricular, subcortical nonspecific due to signal hyperintensi ty foci. This may represent chronic microvascular ischemic change, demyelinating disease, or vascul opathy. The brain parenchyma is otherwise normal in morphology with preservation of faith white differentiati on . Age appropriate size of the ventricles and subarachnoid spaces.. The posterior fossa contents, brainstem, seventh - eighth cranial nerve complexes, pituitary axis, o rbits, paranasal sinuses, and mastoid air cells are unremarkable. Normal flow voids are visible in the proximal intracranial arteries and dural sinuses, indicating pa tency. IMPRESSION: 1. No acute or early subacute ischemic infarction or intracranial hemorrhage. 2. Mild to moderate chronic microvascular ischemic change in the deep white matter. Differential d iagnostic considerations discussed above. 3. Mild age related parenchymal volume loss. 4. Results were discussed with Fernando Xie 01/10/2017 10:00:22 PM . RPTAT:AAJJ Physician Tashi Date Time Electronically viewed and signed by Physician Tashi on 01/10/2017 22:02 MARIAJOSE/
[2017-01-10] MEDS: ATORVASTATIN 40 MG TAB PO SCH (23:06)
[2017-01-10] MEDS: HEPARIN 5,000 UNIT/0.5 ML SYG SC SCH (23:08)
[2017-01-10 23:09] VITALS: TEMP 98.6
[2017-01-10 23:48] VITALS: PULSE 60
[2017-01-11] VITALS (12 sets, daily range): BP systolic 108–137; BP diastolic 62–71; PULSE 60–73; RESP 18–20; Ht 165.1 cm; Wt 106.0 kg
[2017-01-11] MEDS: PANTOPRAZOLE 40 MG INJ IV SCH (05:52)
[2017-01-11 08:24] LABS: CHOL/HDL RATIO 4.4 RATIO
[2017-01-11 08:39] LABS: THYROID STIMULATING HORMONE 2.04 MIU/L (0.465-4.680)
[2017-01-11] MEDS: ASPIRIN (EC) 325 MG TAB PO SCH (08:48)
[2017-01-11] MEDS: HEPARIN 5,000 UNIT/0.5 ML SYG SC SCH ×2 (08:49→20:49)
[2017-01-11] MEDS: INSULIN GLARGINE [LANtus] 3 ML PEN SC SCH (08:51)
[2017-01-11] MEDS: INSULIN ASPART [NOVOLOG] 3 ML PEN SC SCH ×7 (08:52→20:58)
[2017-01-11 09:15] LABS: ADD SCAN DIFF NO
[2017-01-11 09:16] LABS: ADD UMIC NO; URINE BILIRUBIN (Dip) NEGATIVE (NEGATIVE); URINE BLOOD (Dip) NEGATIVE (NEGATIVE); URINE COLOR LT. YELLOW (YELLOW); URINE GLUCOSE (Dip) NEGATIVE (NEGATIVE); URINE KETONES (Dip) NEGATIVE (NEGATIVE); URINE LEUKOCYTE ESTERASE (Dip) NEGATIVE (NEGATIVE); URINE NITRITE (Dip) NEGATIVE (NEGATIVE); URINE TOTAL PROTEIN (Dip) NEGATIVE (NEGATIVE); URINE UROBILINOGEN (Dip) 0.2 E.U./dL (0.1-1.0)
[2017-01-11 09:21] LABS: BASOPHILS % 0.4 % (0.0-2.0); EOSINOPHILS # 0.3 10^3/ul (0.0-0.5); EOSINOPHILS % 2.8 % (0.0-7.0); HEMATOCRIT 43.4 % (42.0-52.0); HEMOGLOBIN 14.4 g/dl (14.0-18.0); LYMPHOCYTES # 3.9 10^3/ul (0.8-2.9); LYMPHOCYTES % 34.8 % (15.0-51.0); MEAN CORPUSCULAR HEMOGLOBIN 29.8 pg (29.0-33.0); MEAN CORPUSCULAR HGB CONC 33.2 g/dl (32.0-37.0); MEAN CORPUSCULAR VOLUME 89.9 fl (82.0-101.0); MEAN PLATELET VOLUME 11.4 fl (7.4-10.4); MONOCYTE # 0.5 10^3/ul (0.3-0.9); MONOCYTES % 4.8 % (0.0-11.0); NEUTROPHIL # 6.4 10^3/ul (1.6-7.5); NEUTROPHILS % 56.8 % (39.0-77.0); PLATELET COUNT 249 10^3/UL (140-415); RED BLOOD COUNT 4.83 10^6/ul (4.70-6.10); RED CELL DISTRIBUTION WIDTH 13.3 % (11.5-14.5); WHITE BLOOD COUNT 11.2 10^3/ul (4.8-10.8)
[2017-01-11 09:27] LABS: POTASSIUM 4.3 mmol/L (3.5-5.1)
[2017-01-11 09:29] LABS: CREATININE 0.81 mg/dl (0.61-1.24)
[2017-01-11 09:31] LABS: CALCIUM 9.2 mg/dl (8.4-10.2); MAGNESIUM 1.8 mg/dl (1.7-2.5); PHOSPHORUS 4.7 mg/dl (2.5-4.9)
[2017-01-11 10:02] LABS: BARBITURATES NEGATIVE (NEGATIVE); BENZODIAZEPINES NEGATIVE (NEGATIVE); CANNABINOIDS NEGATIVE (NEGATIVE); COCAINE NEGATIVE (NEGATIVE); OPIATES NEGATIVE (NEGATIVE)
--- NOTE | 2017-01-11 11:58 | CONS ---
Date/Time of Note Date/Time of Note DATE: 01/11/17 TIME: 11:48 Assessment/Plan Assessment/Plan Chief Complaint/Hosp Course 61 year old male with uncontrolled DM, HTN, HLD, left carotid stenosis p/w left sided hand swelling a/w numbness and lip swelling. He was evaluated by tele neurology given NIHSS 3, not a candidate for IV tPA. Symptoms seem to have now resolved, unclear if this was a vascular event as swelling is not a typical presentation. MRI Brain shows no acute infarction. Recommendations: -continue ASA 81 mg daily -Lipitor 40 mg qhs -maintain normotensive blood pressure BP< 140/90 -target HBA1C less than 6.5% -baseline ECHO -Left carotid stenosis, asymptomatic at this time, will require vascular surgery follow up to consider intervention in the future -smoking cessation is imperative, reinforced this with patient -DVT ppx -PT/OT eval Problems: Consultation Date/Type/Reason Admit Date/Time Jan 10, 2017 at 18:02 Date of Consultation: Jan 11, 2017 Type of Consultation: Neurology Reason for Consultation left sided swelling/numbness Referring Provider: LELO SPEARS Hx of Present Illness 61 year old male with history of uncontrolled diabetes, hypertension, HLD, active smoker, history of reported TIA presenting with left UE swelling sensation and numbness. He reports similar event over 10 days ago where he experienced left sided facial droop and numbness associated with swelling in lips and left arm numbness, now resolved back to baseline. Overnight he awoke with left hand knuckle swelling and sensation of numbness with swelling in his lips, denies any new medications or any known allergies. On admission he was evaluated by tele neurology, suspected he had a recent stroke and was not a candidate for thrombolytic therapy. Work up on previous admission revealed Left ICA 70% stenosis, Right ICA stenosis 50%. MRI was not done at that time. MRI done last night shows no acute infarction, chronic microvascular changes. Past Medical History uncontrolled DM hypertension HLD Social History Smoking Status: Current every day smoker Exam/Review of Systems Vital Signs Vitals Vital Signs Date Time Temp Pulse Resp B/P Pulse Ox O2 Delivery O2 Flow Rate FiO2 01/11/17 08:46 60 01/11/17 08:13 98.3 18 112/64 97 01/11/17 04:00 Nasal Cannula 2.0 Intake and Output 01/10/17 01/10/17 01/11/17 15:00 23:00 07:00 Intake Total 300 ml Output Total 300 ml Balance 0 ml Exam awake and alert oriented x3 no aphasia follows all commands no neglect CN: THUY, VFF blinks to threat, EOMI no nystagmus, no facial asymmetry palate upgoing uvula midline scm/trap intact tongue midline Motor: no drift in extremities, strength is 5/5 LE 5/5 strength Sensory decreased PP to hands and feet bilaterally Reflexes trace throughout toes down Coordination no ataxia Results Result Diagram: 01/11/1707 01/11/17706 Results 24 hrs Laboratory Tests Test 01/10/17 16:24 01/10/17 16:44 01/10/17 16:55 01/10/17 22:46 Hemoglobin A1c 10.5 H White Blood Count 12.2 H Red Blood Count 4.71 Hemoglobin 14.2 Hematocrit 42.2 Mean Corpuscular Volume 89.6 Mean Corpuscular Hemoglobin 30.1 Mean Corpuscular Hemoglobin Concent 33.6 Red Cell Distribution Width 13.2 Platelet Count 252 Mean Platelet Volume 10.9 H Neutrophils % 64.8 Lymphocytes % 27.2 Monocytes % 4.7 Eosinophils % 2.4 Basophils % 0.3 Nucleated Red Blood Cells % 0.0 Neutrophils # 7.9 H Lymphocytes # 3.3 H Monocytes # 0.6 Eosinophils # 0.3 Basophils # 0.0 Nucleated Red Blood Cells # 0.0 Prothrombin Time 11.6 L Prothrombin Time Ratio 0.9 INR International Normalized Ratio 0.85 Activated Partial Thromboplast Time 27.9 Sodium Level 139 Potassium Level 4.7 Chloride Level 103 Carbon Dioxide Level 29 Anion Gap 12 Blood Urea Nitrogen 15 Creatinine 0.84 Glucose Level 215 Calcium Level 9.3 Troponin I < 0.012 Ethyl Alcohol Level < 10.0 Free Thyroxine 1.01 Bedside Glucose 150 Test 01/11/17 06:30 01/11/17 07:07 01/11/17 08:01 Urine Color LT. YELLOW Urine Clarity CLEAR Urine pH 6.0 Urine Specific [place] 1.020 Urine Ketones NEGATIVE Urine Nitrite NEGATIVE Urine Bilirubin NEGATIVE Urine Urobilinogen 0.2 E.U./dL Urine Leukocyte Esterase NEGATIVE Urine Hemoglobin NEGATIVE Urine Glucose NEGATIVE Urine Total Protein NEGATIVE Urine Opiates Screen NEGATIVE Urine Barbiturates NEGATIVE Urine Amphetamines Screen NEGATIVE Urine Benzodiazepines Screen NEGATIVE Urine Cocaine Screen NEGATIVE Urine Cannabinoids NEGATIVE White Blood Count 11.2 H Red Blood Count 4.83 Hemoglobin 14.4 Hematocrit 43.4 Mean Corpuscular Volume 89.9 Mean Corpuscular Hemoglobin 29.8 Mean Corpuscular Hemoglobin Concent 33.2 Red Cell Distribution Width 13.3 Platelet Count 249 Mean Platelet Volume 11.4 H Neutrophils % 56.8 Lymphocytes % 34.8 Monocytes % 4.8 Eosinophils % 2.8 Basophils % 0.4 Nucleated Red Blood Cells % 0.0 Neutrophils # 6.4 Lymphocytes # 3.9 H Monocytes # 0.5 Eosinophils # 0.3 Basophils # 0.0 Nucleated Red Blood Cells # 0.0 Sodium Level 136 Potassium Level 4.3 Chloride Level 103 Carbon Dioxide Level 24 Anion Gap 13 Blood Urea Nitrogen 12 Creatinine 0.81 Glucose Level 182 Calcium Level 9.2 Phosphorus Level 4.7 Magnesium Level 1.8 Triglycerides Level 251 H Cholesterol Level 129 LDL Cholesterol, Calculated 50 HDL Cholesterol 29 L Cholesterol/HDL Ratio 4.4 Thyroid Stimulating Hormone (TSH) 2.040 Bedside Glucose 183 Medications Medications Current Medications Ondansetron HCl (Zofran Inj) 4 mg Q6H PRN IV NAUSEA AND/OR VOMITING; Start at 19:00 Acetaminophen (Tylenol Tab) 650 mg Q6H PRN PO PAIN LEVEL 1-3 OR FEVER; Start at 19:00 Acetaminophen/ Hydrocodone Bitart ([place] (5/325)) 1 tab Q6H PRN PO MODERATE PAIN LEVEL 4-6; Start 01/10/17 at 19:00 Morphine Sulfate (morphine) 2 mg Q4H PRN IV SEVERE PAIN LEVEL 7-10; Start 01/10 at 19:00 Docusate Sodium (Colace) 100 mg Q12H PRN PO CONSTIPATION; Start 01/10/17 at 19: 00 Magnesium Hydroxide (Milk Of Mag) 30 ml DAILY PRN PO CONSTIPATION; Start at 19:00 Sodium Biphosphate/ Sodium Phosphate (Fleet Enema) 133 ml DAILY PRN [place] CONSTIPATION; Start 01/10/17 at 19:00 Pantoprazole (Protonix Iv) 40 mg DAILY@06 IV Last administered on 01/11/17t 05: 52; Admin Dose 40 MG; Start 01/11/17 at 06:00 Heparin Sodium (Porcine) (Heparin (5000 Units/0.5 ml)) 5,000 unit Q12 SC Last administered on 01/11/17 08:49; Admin Dose 5,000 UNIT; Start 01/10/17 at 21:00 Lorazepam (Ativan) 0.5 mg Q6H PRN IV ANXIETY; Start 01/10/17 at 19:00 Hydralazine HCl (Apresoline) 10 mg Q6H PRN IV ELEVATED BLOOD PRESSURE; Start at 19:00 Nitroglycerin (Nitroglycerin (Sl Tab) 0.4 Mg) 1 tab Q5M PRN SL ANGINA; Start at 19:00 Aspirin (Ecotrin) 325 mg DAILY PO Last administered on 01/11/17 08:48; Admin Dose 325 MG; Start 01/11/17 at 09:00 Atorvastatin Calcium (Lipitor) 40 mg QHS PO Last administered on 01/10/17 23: 06; Admin Dose 40 MG; Start 01/10/17 at 21:00 Insulin Glargine (Lantus) 36 unit DAILY@08 SC Last administered on 01/11/17 08 :51; Admin Dose 36 UNIT; Start 01/11/17 at 08:00 Miscellaneous Information 1 ea NOTE XX ; Start 01/10/17 at 19:30 Glucose (Glutose) 15 gm Q15M PRN PO DECREASED GLUCOSE; Start 01/10/17 at 19:30 Glucose (Glutose) 22.5 gm Q15M PRN PO DECREASED GLUCOSE; Start 01/10/17 at 19: 30 Dextrose (D50w Syringe) 25 ml Q15M PRN IV DECREASED GLUCOSE; Start 01/10/17 at 19:30 Dextrose (D50w Syringe) 50 ml Q15M PRN IV DECREASED GLUCOSE; Start 01/10/17 at 19:30 Glucagon (Glucagen) 1 mg Q15M PRN IM DECREASED GLUCOSE; Start 01/10/17 at 19:30 Glucose (Glutose) 15 gm Q15M PRN BUCCAL DECREASED GLUCOSE; Start 01/10/17 at 19 :30 Miscellaneous Information 1 ea NOTE XX ; Start 01/10/17 at 19:30 Glucose (Glutose) 15 gm Q15M PRN PO DECREASED GLUCOSE; Start 01/10/17 at 19:30 Glucose (Glutose) 22.5 gm Q15M PRN PO DECREASED GLUCOSE; Start 01/10/17 at 19: 30 Dextrose (D50w Syringe) 25 ml Q15M PRN IV DECREASED GLUCOSE; Start 01/10/17 at 19:30 Dextrose (D50w Syringe) 50 ml Q15M PRN IV DECREASED GLUCOSE; Start 01/10/17 at 19:30 Glucagon (Glucagen) 1 mg Q15M PRN IM DECREASED GLUCOSE; Start 01/10/17 at 19:30 Glucose (Glutose) 15 gm Q15M PRN BUCCAL DECREASED GLUCOSE; Start 01/10/17 at 19 :30 ALEKSANDAR DIA MD Jan 11, 2017 11:58
--- NOTE | 2017-01-11 14:48 | PN ---
Date/Time of Note Date/Time of Note DATE: 01/11/17 TIME: 14:46 Assessment/Plan VTE Prophylaxis VTE Prophylaxis Intervention: heparin Lines/Catheters IV [facility] [place] Assessment/Plan Assessment/Plan 1. Patient admitted for bleeding from prior VATS site on the right side. With interval resolution. awaiting for echo 2. Recurrent pleural effusion status post recent VATS. Ultrasound of the chest is showing consolidation involving the right lower lobe without any significant pleural effusion. 3. History of coronary artery status post CABG surgery. 4. Cardio myopathy. 5. Diabetes. 6. Hypertension. contgrolled 7. DVT prophylaxis: heparin Subjective 24 Hr Interval Summary Free Text/Dictation symptoms resolved Exam/Review of Systems Vital Signs Vitals Vital Signs Date Time Temp Pulse Resp B/P Pulse Ox O2 Delivery O2 Flow Rate FiO2 01/11/17 12:31 70 01/11/17 11:52 98.1 18 120/65 96 01/11/17 04:00 Nasal Cannula 2.0 Intake and Output 01/10/17 01/10/17 01/11/17 15:00 23:00 07:00 Intake Total 300 ml Output Total 300 ml Balance 0 ml Exam Constitutional: alert, oriented, well developed Psych: nl mood/affect, no complaints Head: atraumatic, normocephalic Eyes: EOMI, nl conjunctiva, nl lids ENMT: nl external ears & nose, nl lips & teeth, nl nasal mucosa & septum Neck: non-tender, supple Respiratory: clear to auscultation, normal air movement, No congested cough, No crackles/rales, No diminished breath sounds, No intercostal retraction, No labored breathing, No other, No respirations, No tactile fremitus, No wheezing Cardiovascular: nl pulses, regular rate and rhythm, No S3, No S4, No bruits, No diastolic murmur, No edema, No gallop, No irregular rhythm, No jugular venous distention (JVD), No murmurs/extra sounds, No other, No rub, No systolic murmur Gastrointestinal: nl liver, spleen, non-tender, soft, No ascites, No bowel sounds, No distended, No firm, No hepatomegaly, No mass , No other, No rebound or guarding, No splenomegaly, No surgical scars, No tender Musculoskeletal: nl extremities to inspection Extremities: normal pulses, No calf tenderness, No clubbing, No cyanosis, No edema, No other, No palpable cord, No pitting pedal edema, No tenderness 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7 Eosinophils % 2.4 Basophils % 0.3 Nucleated Red Blood Cells % 0.0 Neutrophils # 7.9 H Lymphocytes # 3.3 H Monocytes # 0.6 Eosinophils # 0.3 Basophils # 0.0 Nucleated Red Blood Cells # 0.0 Prothrombin Time 11.6 L Prothrombin Time Ratio 0.9 INR International Normalized Ratio 0.85 Activated Partial Thromboplast Time 27.9 Sodium Level 139 Potassium Level 4.7 Chloride Level 103 Carbon Dioxide Level 29 Anion Gap 12 Blood Urea Nitrogen 15 Creatinine 0.84 Glucose Level 215 Calcium Level 9.3 Troponin I < 0.012 Ethyl Alcohol Level < 10.0 Free Thyroxine 1.01 Bedside Glucose 150 Test 01/11/17 06:30 01/11/17 07:07 01/11/17 08:01 01/11/17 12:28 Urine Color LT. YELLOW Urine Clarity CLEAR Urine pH 6.0 Urine Specific [place] 1.020 Urine Ketones NEGATIVE Urine Nitrite NEGATIVE Urine Bilirubin NEGATIVE Urine Urobilinogen 0.2 E.U./dL Urine Leukocyte Esterase NEGATIVE Urine Hemoglobin NEGATIVE Urine Glucose NEGATIVE Urine Total Protein NEGATIVE Urine Opiates Screen NEGATIVE Urine Barbiturates NEGATIVE Urine Amphetamines Screen NEGATIVE Urine Benzodiazepines Screen NEGATIVE Urine Cocaine Screen NEGATIVE Urine Cannabinoids NEGATIVE White Blood Count 11.2 H Red Blood Count 4.83 Hemoglobin 14.4 Hematocrit 43.4 Mean Corpuscular Volume 89.9 Mean Corpuscular Hemoglobin 29.8 Mean Corpuscular Hemoglobin Concent 33.2 Red Cell Distribution Width 13.3 Platelet Count 249 Mean Platelet Volume 11.4 H Neutrophils % 56.8 Lymphocytes % 34.8 Monocytes % 4.8 Eosinophils % 2.8 Basophils % 0.4 Nucleated Red Blood Cells % 0.0 Neutrophils # 6.4 Lymphocytes # 3.9 H Monocytes # 0.5 Eosinophils # 0.3 Basophils # 0.0 Nucleated Red Blood Cells # 0.0 Sodium Level 136 Potassium Level 4.3 Chloride Level 103 Carbon Dioxide Level 24 Anion Gap 13 Blood Urea Nitrogen 12 Creatinine 0.81 Glucose Level 182 Hemoglobin A1c 10.8 H Calcium Level 9.2 Phosphorus Level 4.7 Magnesium Level 1.8 Triglycerides Level 251 H Cholesterol Level 129 LDL Cholesterol, Calculated 50 HDL Cholesterol 29 L Cholesterol/HDL Ratio 4.4 Thyroid Stimulating Hormone (TSH) 2.040 Bedside Glucose 183 164 Medications Medications Current Medications Ondansetron HCl (Zofran Inj) 4 mg Q6H PRN IV NAUSEA AND/OR VOMITING; Start at 19:00 Acetaminophen (Tylenol Tab) 650 mg Q6H PRN PO PAIN LEVEL 1-3 OR FEVER; Start at 19:00 Acetaminophen/ Hydrocodone Bitart ([place] (5/325)) 1 tab Q6H PRN PO MODERATE PAIN LEVEL 4-6; Start 01/10/17 at 19:00 Morphine Sulfate (morphine) 2 mg Q4H PRN IV SEVERE PAIN LEVEL 7-10; Start 01/10 at 19:00 Docusate Sodium (Colace) 100 mg Q12H PRN PO CONSTIPATION; Start 01/10/17 at 19: 00 Magnesium Hydroxide (Milk Of Mag) 30 ml DAILY PRN PO CONSTIPATION; Start at 19:00 Sodium Biphosphate/ Sodium Phosphate (Fleet Enema) 133 ml DAILY PRN [place] CONSTIPATION; Start 01/10/17 at 19:00 Pantoprazole (Protonix Iv) 40 mg DAILY@06 IV Last administered on 01/11/17 05: 52; Admin Dose 40 MG; Start 01/11/17 at 06:00 Heparin Sodium (Porcine) (Heparin (5000 Units/0.5 ml)) 5,000 unit Q12 SC Last administered on 01/11/17 08:49; Admin Dose 5,000 UNIT; Start 01/10/17 at 21:00 Lorazepam (Ativan) 0.5 mg Q6H PRN IV ANXIETY; Start 01/10/17 at 19:00 Hydralazine HCl (Apresoline) 10 mg Q6H PRN IV ELEVATED BLOOD PRESSURE; Start at 19:00 Nitroglycerin (Nitroglycerin (Sl Tab) 0.4 Mg) 1 tab Q5M PRN SL ANGINA; Start at 19:00 Aspirin (Ecotrin) 325 mg DAILY PO Last administered on 01/11/17 08:48; Admin Dose 325 MG; Start 01/11/17 at 09:00 Atorvastatin Calcium (Lipitor) 40 mg QHS PO Last administered on 01/10/17 23: 06; Admin Dose 40 MG; Start 01/10/17 at 21:00 Insulin Glargine (Lantus) 36 unit DAILY@08 SC Last administered on 01/11/17 08 :51; Admin Dose 36 UNIT; Start 01/11/17 at 08:00 Miscellaneous Information 1 ea NOTE XX ; Start 01/10/17 at 19:30 Glucose (Glutose) 15 gm Q15M PRN PO DECREASED GLUCOSE; Start 01/10/17 at 19:30 Glucose (Glutose) 22.5 gm Q15M PRN PO DECREASED GLUCOSE; Start 01/10/17 at 19: 30 Dextrose (D50w Syringe) 25 ml Q15M PRN IV DECREASED GLUCOSE; Start 01/10/17 at 19:30 Dextrose (D50w Syringe) 50 ml Q15M PRN IV DECREASED GLUCOSE; Start 01/10/17 at 19:30 Glucagon (Glucagen) 1 mg Q15M PRN IM DECREASED GLUCOSE; Start 01/10/17 at 19:30 Glucose (Glutose) 15 gm Q15M PRN BUCCAL DECREASED GLUCOSE; Start 01/10/17 at 19 :30 Miscellaneous Information 1 ea NOTE XX ; Start 01/10/17 at 19:30 Glucose (Glutose) 15 gm Q15M PRN PO DECREASED GLUCOSE; Start 01/10/17 at 19:30 Glucose (Glutose) 22.5 gm Q15M PRN PO DECREASED GLUCOSE; Start 01/10/17 at 19: 30 Dextrose (D50w Syringe) 25 ml Q15M PRN IV DECREASED GLUCOSE; Start 01/10/17 at 19:30 Dextrose (D50w Syringe) 50 ml Q15M PRN IV DECREASED GLUCOSE; Start 01/10/17 at 19:30 Glucagon (Glucagen) 1 mg Q15M PRN IM DECREASED GLUCOSE; Start 01/10/17 at 19:30 Glucose (Glutose) 15 gm Q15M PRN BUCCAL DECREASED GLUCOSE; Start 01/10/17 at 19 :30 TISH BERKOWITZ MD Jan 11, 2017 14:48
[2017-01-11] MEDS: ATORVASTATIN 40 MG TAB PO SCH (20:47)
[2017-01-11] MEDS ORDERED: ZOLPIDEM 5 MG TAB PO PRN (23:30)
[2017-01-12] VITALS (9 sets, daily range): BP systolic 110–131; BP diastolic 66–77; PULSE 59–68; RESP 18–20
[2017-01-12] MEDS: PANTOPRAZOLE 40 MG INJ IV SCH (05:37)
[2017-01-12] MEDS: INSULIN GLARGINE [LANtus] 3 ML PEN SC SCH (08:49)
[2017-01-12] MEDS: INSULIN ASPART [NOVOLOG] 3 ML PEN SC SCH ×4 (08:50→12:51)
[2017-01-12] MEDS: ASPIRIN (EC) 325 MG TAB PO SCH (08:51)
[2017-01-12] MEDS: HEPARIN 5,000 UNIT/0.5 ML SYG SC SCH (08:52)
[2017-01-12 10:06] LABS: ADD SCAN DIFF NO
[2017-01-12 10:10] LABS: BASOPHILS % 0.3 % (0.0-2.0); EOSINOPHILS # 0.2 10^3/ul (0.0-0.5); EOSINOPHILS % 1.6 % (0.0-7.0); HEMATOCRIT 42.7 % (42.0-52.0); HEMOGLOBIN 14.1 g/dl (14.0-18.0); LYMPHOCYTES # 2.8 10^3/ul (0.8-2.9); LYMPHOCYTES % 25.8 % (15.0-51.0); MEAN CORPUSCULAR HEMOGLOBIN 29.6 pg (29.0-33.0); MEAN CORPUSCULAR VOLUME 89.7 fl (82.0-101.0); MEAN PLATELET VOLUME 10.9 fl (7.4-10.4); MONOCYTE # 0.5 10^3/ul (0.3-0.9); MONOCYTES % 4.2 % (0.0-11.0); NEUTROPHIL # 7.3 10^3/ul (1.6-7.5); NEUTROPHILS % 67.6 % (39.0-77.0); PLATELET COUNT 255 10^3/UL (140-415); RED BLOOD COUNT 4.76 10^6/ul (4.70-6.10); RED CELL DISTRIBUTION WIDTH 13.2 % (11.5-14.5); WHITE BLOOD COUNT 10.7 10^3/ul (4.8-10.8)
[2017-01-12 10:19] LABS: POTASSIUM 3.8 mmol/L (3.5-5.1)
[2017-01-12 10:21] LABS: CREATININE 0.79 mg/dl (0.61-1.24)
[2017-01-12 10:23] LABS: CALCIUM 8.9 mg/dl (8.4-10.2)
--- NOTE | 2017-01-12 15:06 | DS ---
Date/Time of Note Date/Time of Note DATE: 01/12/17 TIME: 14:58 Discharge Summary Admission/Discharge Info Admit Date/Time Jan 10, 2017 at 18:02 Discharge Date/Time Final Diagnosis 1. TIA, 2. History of type 2 diabetes. We mentioned A1c is 10.5. Continue current insulin doses and add sliding scale insulin. 3. Essential hypertension. Again, allow for permissive hypertension for now. 4. High cholesterol. Check a lipid panel. Continue statin. 5. Left carotid ICA stenosis at 50-69%, repeat carotid US in 3 months per PCP Patient Condition: Stable Hospital Course 61 year old male with uncontrolled DM, HTN, HLD, left carotid stenosis p/w left sided hand swelling a/w numbness and lip swelling. MRI Brain shows no acute infarction. Symptoms resolved after admission. Patient will be on aspirin, lipitor, and aggressive control of DM and hypertension. He is instructed to follow up with PCP outpatient. There is a 50-69% left ICA stenosis. Again agressive control HTN, DM, and he is on aspirin and lipitor. Follow up with PCP to repeat carotid US in 3 months. Home Meds Active Scripts Insulin Aspart* (Novolog Insulin Pen*) 100 Unit/Ml Soln, 12 UNIT SC WITH MEALS, #1 VIAL 1 Refill Prov:KENNETH GUILLEN 01/01/17 Insulin Glargine* (Lantus*) 100 Unit/Ml Soln, 36 UNIT SC DAILY@08, #1 VIAL 1 Refill Prov:WILMERKENNETH 01/01/17 Atorvastatin* (Atorvastatin*) 40 Mg Tablet, 40 MG PO QHS for 30 Days, #30 TAB Prov:ONI RANGEL NP 11/26/16 Tamsulosin Hcl* (Flomax*) 0.4 Mg Cap.er.24h, 0.4 MG PO QPM, #30 CAP Prov:SANTIAGO PORTILLO MD 07/16/16 Reported Medications Losartan Potassium* (Losartan Potassium*) 50 Mg Tablet, 50 MG PO DAILY, TAB 07/16/16 Amlodipine Besylate* (Norvasc*) 5 Mg Tablet, 5 MG PO DAILY, TAB 07/16/16 Aspirin* (Aspirin* EC) 81 Mg Tablet., 81 MG PO DAILY, TAB 06/03/16 Follow-up Plan PCP in two weeks PCP to repeat carotid US in 3 months Pending Labs Laboratory Tests Test 01/11/17 20:36 01/12/17 01:56 01/12/17 07:46 01/12/17 09:44 Bedside Glucose 259mg/dL (70-220) 212mg/dL (70-220) 144mg/dL (70-220) White Blood Count 10.710^3/ul (4.8-10.8) Red Blood Count 4.7610^6/ul (4.70-6.10) Hemoglobin 14.1g/dl (14.0-18.0) Hematocrit 42.7% (42.0-52.0) Mean Corpuscular Volume 89.7fl (82.0-101.0) Mean Corpuscular Hemoglobin 29.6pg (29.0-33.0) Mean Corpuscular Hemoglobin Concent 33.0g/dl (32.0-37.0) Red Cell Distribution Width 13.2% (11.5-14.5) Platelet Count 98213^3/UL (140-415) Mean Platelet Volume 10.9fl (7.4-10.4) Neutrophils % 67.6% (39.0-77.0) Lymphocytes % 25.8% (15.0-51.0) Monocytes % 4.2% (0.0-11.0) Eosinophils % 1.6% (0.0-7.0) Basophils % 0.3% (0.0-2.0) Nucleated Red Blood Cells % 0.0/100WBC (0.0-0.0) Neutrophils # 7.310^3/ul (1.6-7.5) Lymphocytes # 2.810^3/ul (0.8-2.9) Monocytes # 0.510^3/ul (0.3-0.9) Eosinophils # 0.210^3/ul (0.0-0.5) Basophils # 0.010^3/ul (0.0-0.1) Nucleated Red Blood Cells # 0.010^3/ul (0.0-0.0) Sodium Level 135mmol/L (135-144) Potassium Level 3.8mmol/L (3.5-5.1) Chloride Level 103mmol/L (97-110) Carbon Dioxide Level 24mmol/L (21-31) Anion Gap 12 (8-16) Blood Urea Nitrogen 13mg/dl (7-20) Creatinine 0.79mg/dl (0.61-1.24) Glucose Level 234mg/dl (70-220) Calcium Level 8.9mg/dl (8.4-10.2) Test 01/12/17 11:53 Bedside Glucose 102mg/dL (70-220) TISH BERKOWITZ MD Jan 12, 2017 15:06
== END 2017-01-12 16:00 | disposition home or self-care (01) | DRG 69 ==
LOC: E/R 15:44 → MS4 18:02
PROVIDERS: ADMIT Hospitalist; ATTEND Hospitalist
DX: G45.9 Transient cerebral ischemic attack, unspecified (principal); I42.9 Cardiomyopathy, unspecified; I69.354 Hemiplegia and hemiparesis following cerebral infarction affecting left non-dominant side; E11.65 Type 2 diabetes mellitus with hyperglycemia; I10 Essential (primary) hypertension; R29.810 Facial weakness; E78.5 Hyperlipidemia, unspecified; N40.0 Benign prostatic hyperplasia without lower urinary tract symptoms; I25.10 Atherosclerotic heart disease of native coronary artery without angina pectoris; F17.200 Nicotine dependence, unspecified, uncomplicated; Z79.4 Long term (current) use of insulin; Z79.82 Long term (current) use of aspirin; Z95.1 Presence of aortocoronary bypass graft
CPT/HCPCS: 36415; 70450; 70551; 71010; 80048; 80061; 80306; 80307; 81003; 82962; 83036; 83735; 84100; 84439; 84443; 84484; 85025; 85610; 85730; 92610; 93005; 93880; 96372; 97162; C9113; J1644; J1815

== ENCOUNTER 2017-03-28 12:18 | Inpatient (IN) | payer OTHER ==
[~2017-03-28] VITALS: Ht 175.3 cm; Wt 105.5 kg
[2017-03-28 12:24] VITALS: Ht 175.3 cm; Wt 105.5 kg
[2017-03-28] MEDS ORDERED: ALBUTEROL 0.083% (NEB) 2.5 MG/3 ML AMP NEB STA (13:06)
[2017-03-28] MEDS ORDERED: IPRATROPIUM (NEB) 0.5 MG/2.5 ML AMP NEB STA (13:06)
[2017-03-28 13:21] LABS: ADD SCAN DIFF NO
[2017-03-28 13:26] LABS: BASOPHILS % 0.4 % (0.0-2.0); EOSINOPHILS # 0.3 10^3/ul (0.0-0.5); EOSINOPHILS % 2.9 % (0.0-7.0); HEMOGLOBIN 14.2 g/dl (14.0-18.0); LYMPHOCYTES # 2.8 10^3/ul (0.8-2.9); LYMPHOCYTES % 27.2 % (15.0-51.0); MEAN CORPUSCULAR HEMOGLOBIN 29.2 pg (29.0-33.0); MEAN CORPUSCULAR VOLUME 88.5 fl (82.0-101.0); MEAN PLATELET VOLUME 11.1 fl (7.4-10.4); MONOCYTE # 0.5 10^3/ul (0.3-0.9); MONOCYTES % 5.2 % (0.0-11.0); NEUTROPHIL # 6.7 10^3/ul (1.6-7.5); NEUTROPHILS % 63.8 % (39.0-77.0); PLATELET COUNT 215 10^3/UL (140-415); RED BLOOD COUNT 4.86 10^6/ul (4.70-6.10); WHITE BLOOD COUNT 10.4 10^3/ul (4.8-10.8)
[2017-03-28] MEDS ORDERED: LANT3I SC (13:36)
[2017-03-28] MEDS ORDERED: INSU100C SQ (13:39)
[2017-03-28] MEDS ORDERED: METF500T4 PO (13:40)
[2017-03-28 13:43] LABS: ALANINE AMINOTRANSFERASE 33 IU/L (13-69); ALBUMIN 4.7 g/dl (3.3-4.9); ALBUMIN/GLOBULIN RATIO 1.67; ALKALINE PHOSPHATASE 119 IU/L (42-121); ANION GAP 13 (8-16); ASPARTATE AMINO TRANSFERASE 17 IU/L (15-46); BILIRUBIN,INDIRECT 0.1 mg/dl (0-1.1); BILIRUBIN,TOTAL 0.1 mg/dl (0.2-1.3); BLOOD UREA NITROGEN 15 mg/dl (7-20); CALCIUM 9.3 mg/dl (8.4-10.2); CARBON DIOXIDE 25 mmol/L (21-31); CHLORIDE 108 mmol/L (97-110); CREATININE 0.83 mg/dl (0.61-1.24); GLUCOSE 130 mg/dl (70-220); SODIUM 142 mmol/L (135-144); TOTAL PROTEIN 7.5 g/dl (6.1-8.1)
--- NOTE | 2017-03-28 13:49 | ERA ---
ER Documentation Chief Complaint Date/Time DATE: 03/28/17 TIME: 13:47 Chief Complaint SOB AND CHEST PRESSURE X 4 DAYS HPI This is 61-year-old male who complains of shortness of breath and chest pain described as a pressure for the past 4 days. Patient states he has occasional chest pressure with exertion. He says he is short of breath with exertion is getting worse over the past 4 days. The patient was scheduled for knee surgery today had a cardiac stress test by Dr. Stacy which he failed. Patient says his breathing was getting worse so he called Dr. Stacy office and they told him to go to the emergency room. Patient currently does not have any chest pressure. Denies any cough palpitations syncope dizziness ROS All systems reviewed and are negative except as per history of present illness. Medications Home Meds Active Scripts Atorvastatin* (Atorvastatin*) 40 Mg Tablet, 40 MG PO QHS for 30 Days, #30 TAB Prov:ONI RANGEL NP 11/26/16 Tamsulosin Hcl* (Flomax*) 0.4 Mg Cap.er.24h, 0.4 MG PO QPM, #30 CAP Prov:SANTIAGO PORTILLO MD 07/16/16 Reported Medications Metformin* (Glucophage*) 500 Mg Tab, 500 MG PO BID, #30 TAB 03/28/17 Insulin Lispro (Humalog) 100 Unit/1 Ml Cartridge, 12 UNIT SQ TID 03/28/17 Insulin Glargine* (Lantus*) 100 Unit/Ml Soln, 36 UNIT SC QHS, #1 VIAL 03/28/17 Losartan Potassium* (Losartan Potassium*) 50 Mg Tablet, 50 MG PO DAILY, TAB 07/16/16 Amlodipine Besylate* (Norvasc*) 5 Mg Tablet, 5 MG PO DAILY, TAB 07/16/16 Aspirin* (Aspirin* EC) 81 Mg Tablet.dr 81 MG PO DAILY, TAB 06/03/16 Discontinued Scripts Insulin Aspart* (Novolog Insulin Pen*) 100 Unit/Ml Soln, 12 UNIT SC WITH MEALS, #1 VIAL 1 Refill Prov:KENNETH GUILLEN 01/01/17 Insulin Glargine* (Lantus*) 100 Unit/Ml Soln, 36 UNIT SC DAILY@08, #1 VIAL 1 Refill Prov:KENNETH GUILLEN 01/01/17 Allergies Allergies: Coded Allergies: morphine (Verified Adverse Reaction, Intermediate, nuasea,vomiting, ) PMhx/Soc History of Surgery: Yes (R knee surgery) Anesthesia Reaction: No Hx Neurological Disorder: Yes (LEFT SIDE WEAKNESS FACIAL AND ARM NUMBNESS) Hx Respiratory Disorders: No Hx Cardiac Disorders: Yes (HTN) Hx Psychiatric Problems: No Hx Miscellaneous Medical Probl: Yes (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 Neck: Full range of motion. No meningismus, no lymphadenopathy. Resp: No increased work of breathing but there is some scattered mild rhonchi at the bases Cardio: Regular rate and rhythm, no murmurs, S1 S2 present Abd: Soft, non tender x 4, non distended. Normal bowel sounds, no guarding or rebound, no pulsitile abdominal masses or bruits Skin: No petechiae or rashes, no ecchymosis , no maculopapular rash Back: No midline or flank tenderness Ext: No cyanosis, or edema, FROM x 4, normal inspection, neurovascularly intact x 4 Neur: Awake and alert, STR 5/5 x 4, sensation intact x 4, no focal findings, cerebellum intact Psych: Normal Mood and Affect Result Diagram: 03/28/17 1310 03/28/17 1310 Results 24 hrs Laboratory Tests Test 03/28/17 13:10 White Blood Count 10.410^3/ul Red Blood Count 4.8610^6/ul Hemoglobin 14.2g/dl Hematocrit 43.0% Mean Corpuscular Volume 88.5fl Mean Corpuscular Hemoglobin 29.2pg Mean Corpuscular Hemoglobin Concent 33.0g/dl Red Cell Distribution Width 14.0% Platelet Count 50498^3/UL Mean Platelet Volume 11.1fl Neutrophils % 63.8% Lymphocytes % 27.2% Monocytes % 5.2% Eosinophils % 2.9% Basophils % 0.4% Nucleated Red Blood Cells % 0.0/100WBC Neutrophils # 6.710^3/ul Lymphocytes # 2.810^3/ul Monocytes # 0.510^3/ul Eosinophils # 0.310^3/ul Basophils # 0.010^3/ul Nucleated Red Blood Cells # 0.010^3/ul Prothrombin Time 12.5Sec Prothrombin Time Ratio 1.0 INR International Normalized Ratio 0.93 Activated Partial Thromboplast Time 29.2Sec Sodium Level 142mmol/L Potassium Level 4.0mmol/L Chloride Level 108mmol/L Carbon Dioxide Level 25mmol/L Anion Gap 13 Blood Urea Nitrogen 15mg/dl Creatinine 0.83mg/dl Glucose Level 130mg/dl Calcium Level 9.3mg/dl Total Bilirubin 0.1mg/dl Direct Bilirubin 0.00mg/dl Indirect Bilirubin 0.1mg/dl Aspartate Amino Transf (AST/SGOT) 17IU/L Alanine Aminotransferase (ALT/SGPT) 33IU/L Alkaline Phosphatase 119IU/L Troponin I < 0.012ng/ml B-Type Natriuretic Peptide 199PG/ML Total Protein 7.5g/dl Albumin 4.7g/dl Globulin 2.80g/dl Albumin/Globulin Ratio 1.67 Current Medications Medications (Trade) Dose Ordered Sig/Tawnya Route PRN Reason Start Time Stop Time Status Last Admin Dose Admin Albuterol (Proventil 0.083% (Neb)) 7.5 mg ONCE STAT NEB 03/28/17 13:06 03/28/17 13:08 DC 03/28/17 13:58 Ipratropium [place] (Atrovent 0.02% (Neb)) 0.5 mg ONCE STAT NEB 03/28/17 13:06 03/28/17 13:08 DC 03/28/17 13:58 Procedures/MDM EKG: Rate/Rhythm: Normal sinus rhythm heart rate 77, incomplete right bundle branch block QRS, ST, QT: NORMAL LA, QRS, QT] Impression: abNORMAL EKG PROCEDURE: XR Chest. CLINICAL INDICATION: Chest pain. TECHNIQUE: Single frontal view of the chest was obtained. COMPARISON: Chest x-ray 01/10/2017. FINDINGS: The soft tissues are normal. There are old fractures of the posterior left fourth through sixth ribs. The heart, cardiomediastinal silhouette and hilar structures are normal. The pulmonary vasculature is normal. There is a left- sided aorta. The lungs are clear. The costophrenic angles are normal. IMPRESSION: 1. Atherosclerosis of the aortic arch with no evidence of active cardiopulmonary disease. there is no change compared to the prior study. RPTAT:AAJJ Physician Jorge Date Time Electronically viewed and signed by Physician Jorge on 03/28/2017 14:01 JM/ CC: LAURA BENITEZ DO Spoke with Dr. Stacy Patient's symptoms are concerning for cardiac cause will require inpatient workup and continuous monitoring. Further w/u for ischemia, arrhythmia, PE or dissection will be deferred to the inpatient team. Accepting Care Team: Current data and ongoing care discussed. Time: Time of admission Primary Provider: [XOXOXO] Consulting: [XOXOXO] Outstanding Data: none Departure Diagnosis: Primary Impression: Shortness of breath Additional Impression: Chest pain Qualified Code: R07.9 - Chest pain, unspecified type Condition: Stable LAURA BENITEZ DO Mar 28, 2017 13:49
[2017-03-28 13:55] LABS: B-TYPE NATRIURETIC PEPTIDE 199 PG/ML (0-125)
[2017-03-28 13:57] LABS: INR 0.93; PARTIAL THROMBOPLASTIN TIME 29.2 Sec (25.0-35.0); PROTIME 12.5 Sec (12.2-14.2)
[2017-03-28 14:01] LABS: TROPONIN-I < 0.012 ng/ml (0.00-0.12)
--- NOTE | 2017-03-28 14:01 | RADRPT ---
PROCEDURE: XR Chest. CLINICAL INDICATION: Chest pain. TECHNIQUE: Single frontal view of the chest was obtained. COMPARISON: Chest x-ray 01/10/2017. FINDINGS: The soft tissues are normal. There are old fractures of the posterior left fourth through sixth rib s. The heart, cardiomediastinal silhouette and hilar structures are normal. The pulmonary vasculatu re is normal. There is a left-sided aorta. The lungs are clear. The costophrenic angles are normal . IMPRESSION: 1. Atherosclerosis of the aortic arch with no evidence of active cardiopulmonary disease. there is no change compared to the prior study. RPTAT:AAJJ Physician Jorge Date Time Electronically viewed and signed by Physician Jorge on 03/28/2017 14:01 /
[2017-03-28] MEDS ORDERED: SOD CHLORIDE 0.9% 1,000 ML IV SCH (14:40)
[2017-03-28] MEDS ORDERED: ACETAMINOPHEN 325 MG TAB PO PRN (15:00)
[2017-03-28] MEDS ORDERED: ONDANSETRON 4 MG INJ IV PRN (15:00)
[2017-03-28] MEDS ORDERED: NITROGLYCERIN (SL) 0.4 MG TAB SL PRN (16:30)
--- NOTE | 2017-03-28 16:35 | HP ---
Date/Time of Note Date/Time of Note DATE: 03/28/17 TIME: 16:35 Assessment/Plan VTE Prophylaxis VTE Prophylaxis Intervention: SCD's Assessment/Plan Assessment/Plan 61 yo M with pmhx DM2, HTN, HL, knee OA admitted for inc fatigue in setting of recent abn stress test. Of utmost concern at this time is ACS/UA. PLAN -cont tele monitoring, serial troponins and EKGs -cardiology to see in AM for eval for angiogram DM 2: cont basal insulin, hold bolus while NPO. SSI and accuchecks cont home BP and HL meds dispo pending cardiology eval NPO at [place] SCDs/H for prophx HPI/ROS Admit Date/Time Admit Date/Time Hx of Present Illness 61 yo M with pmhx knee OA, HTN, HL, DM2 presents with c/o chest pain x 2 days. Of note, pt seen by Dr Stacy of cardiology last week for pre op cardiac eval prior to planned knee surgery. Pt had a stress test early last week, received a call the following day that it was abnormal and pt would need to be scheduled for an angiogram sometime early this week. Over the weekend pt started feeling increasingly fatigued and had difficulty catching his breath. He called Dr Stacy's office and was advised to present to the ED. ROS 10pROS neg except as per HPI PMH/Family/Social Past Medical History DM2, HTN, HL, obesity, knee OA Social History lives in the community Smoking Status: Current every day smoker Exam/Review of Systems Vital Signs Vitals Vital Signs Date Time Temp Pulse Resp B/P Pulse Ox O2 Delivery O2 Flow Rate FiO2 03/28/17 14:02 66 18 94 21 03/28/17 12:24 98.2 115/82 Exam Exam nad, pleasant, sitting up at edge of bed MMM EOMI no mrg lungs clear abd soft no le edema no rashes responds to questions appropriately Labs Result Diagram: 03/28/17 1310 03/28/17 1310 Medications Medications Current Medications Sodium Chloride (NS) 1,000 ml @ 80 mls/hr [id number] IV Last administered on 03/28t 15:15; Admin Dose 80 MLS/HR; Start 03/28/17 at 14:40; Stop 03/29/17 at 03: 09 Metoprolol Tartrate (Lopressor) 25 mg BID PO ; Start 03/28/17 at 21:00; Status UNV Nitroglycerin (Nitroglycerin (Sl Tab) 0.4 Mg) 1 tab Q5M PRN SL ANGINA; Start at 16:30; Status UNV Isosorbide Dinitrate (Isordil) 10 mg TID PO ; Start 03/28/17 at 21:00; Status UNV Procedures Procedures cardiac markers neg x 1 EKG Normal sinus rhythm heart rate 77, incomplete right bundle branch block per ER notes CHAPARRO ARREGUIN MD Mar 28, 2017 16:35
[2017-03-28] MEDS ORDERED: BISACODYL (EC) 5 MG TAB PO PRN (18:30)
[2017-03-28] MEDS ORDERED: DOCUSATE SODIUM 100 MG CAP PO PRN (18:30)
[2017-03-28] MEDS ORDERED: NACL 0.9% 3 ML SYG IV SCH (18:30)
[2017-03-28] MEDS ORDERED: MAGNESIUM HYDROXIDE 30ML CUP PO PRN (18:30)
--- NOTE | 2017-03-28 19:26 | CONS ---
DATE OF ADMISSION: 03/28/2017 DATE OF CONSULTATION: 03/28/2017 TYPE OF CONSULTATION: Cardiology. REASON FOR CONSULTATION: Chest pain described as a pressure-like sensation occurring x4 days, tang rning for unstable angina. REQUESTING PHYSICIAN: Dr. Jarvis from the hospitalist service. HISTORY OF PRESENT ILLNESS: Mr. Mclain is a 61-year-old male with history of hypertension, dyslipide brock, ongoing tobacco usage, diabetes mellitus, recently abnormal stress test with anterior and infer ior ischemia 1 week prior who presents with complaints of dyspnea on exertion and exertional chest p ain described as a pressure-like sensation, ongoing for the past 4 days as a worse sensation and x2 weeks in general. Upon arrival, temperature 98.2, blood pressure ____/82, pulse 82, respiratory rat e 22, saturating 97%. The patient's labs: White blood cell count 10.4, hemoglobin 14.2, platelet c ount of 215. Sodium 142, potassium 4.0, creatinine 0.8, BUN 15, AST 17, ALT 32. BNP 199. INR 0.93 . The patient underwent a chest x-ray revealing atherosclerosis of the aortic arch, no evidence of active cardiopulmonary disease. The patient's electrocardiogram with normal sinus rhythm, rate of 7 7, normal axis, incomplete right bundle branch block, secondary repolarization abnormalities. The p atient at this time has been treated with bronchodilators and awaits admission to the floor. PAST MEDICAL HISTORY: As above in HPI. MEDICATIONS PRIOR TO ADMISSION: 1. Flomax 0.4 mg daily. 2. Norvasc 5 mg daily. 3. Lipitor 40 mg at bedtime. 4. Losartan 50 mg daily. 5. Aspirin 81 mg daily. 6. Lantus. 7. Metformin. ALLERGIES: MORPHINE. SOCIAL HISTORY: Positive tobacco, social ETOH, no illicit drug use. FAMILY HISTORY: No history of sudden cardiac or early CAD. REVIEW OF SYSTEMS: As above in HPI. CONSTITUTIONAL: No fevers, chills. PULMONARY: Shortness of breath. CARDIOVASCULAR: Chest pain. GASTROINTESTINAL: No vomiting. GENITOURINARY: No hematuria. MUSCULOSKELETAL: Degenerative joint disease. PSYCHIATRIC: The patient denies depression. NEUROLOGIC: No documented history of CVA. PHYSICAL EXAMINATION: VITAL SIGNS: Temperature of 98.2, blood pressure ____/82, pulse 82, respiratory rate 22, saturating 97%. GENERAL: The patient is alert, awake with face mask in place. NECK: JVP approximately 8 to 9 cm water. CHEST: Fair air movement throughout with mildly decreased breath sounds at bases bilaterally. HEART: Regular rate and rhythm. Normal S1, S2. I/ systolic murmur. Nondisplaced PMI. ABDOMEN: Positive bowel sounds, soft. EXTREMITIES: No edema. Pulses 1+ bilaterally at posterior tibial. LABORATORY DATA: As above in HPI. No further labs for my review at this time. IMAGING STUDIES: As above in HPI. No further imaging studies for my review at this time. ELECTROCARDIOGRAM: As above in HPI. No further electrocardiograms for my review at this time. IMPRESSION: 1. Chest pain concerning for unstable angina. 2. Abnormal cardiac stress test last week revealing anterior and inferior ischemia. 3. Hypertension. 4. Dyslipidemia. 5. Positive tobacco usage. 6. Diabetes mellitus. 7. Abnormal electrocardiogram, assess for acute coronary syndrome. RECOMMENDATIONS: 1. At this time would admit patient to telemetry monitoring to follow rhythm and rate control close ly. 2. Would complete a rule-out for myocardial infarction to ensure the patient's chest pain is not du e to an acute coronary syndrome such as acute myocardial infarction, thus send troponins q.6 x3. 3. Would continue to check serial EKGs, assess for any significant ongoing changes. An EKG upon ar rival to floor, EKG for any complaints of chest pain or change in rhythm. 4. Would resume the patient's baseline medications with baseline aspirin, statin, Norvasc, losartan and would additionally initiate patient on beta blockade. 5. Continue the patient's insulin therapy, following blood sugars closely. 6. Check a 2D echo to reassess patient's ejection fraction, wall motion, rule out any major abnorma lities. 7. Given the patient's ongoing symptomatology and recent abnormal cardiac stress test, patient will likely require further invasive assessment with cardiac catheterization which thus will likely be s cheduled to take place as soon as possible. Thank you for allowing me to take part in the care of this patient. I will continue to follow along very closely with you with further recommendations to be made as the patient progresses through his inpatient hospital clinical course. Dictated By: ZEB SORIA/MELY Conf#: [id number] DID#: [id number] CC: DA JARVIS MD;*[facility]*
[2017-03-28] MEDS ORDERED: GLUCOSE GEL 15 GRAM TUBE BUCCAL PRN (19:30)
[2017-03-28] MEDS ORDERED: GLUCAGON 1 MG INJ IM PRN (19:30)
[2017-03-28] MEDS ORDERED: DEXTROSE 50% 50 ML SYRINGE IV PRN ×2 (19:30)
[2017-03-28] MEDS ORDERED: GLUCOSE GEL 15 GRAM TUBE PO PRN ×2 (19:30)
[2017-03-28 20:00] VITALS: BP 145/80; RESP 19
[2017-03-28 20:04] VITALS: PULSE 62
[2017-03-28] MEDS ORDERED: INSULIN LISPRO 12 UNIT SQ SCH (21:00)
[2017-03-28] MEDS: INSULIN ASPART [NOVOLOG] 3 ML PEN SC SCH (21:00)
[2017-03-28] MEDS: ATORVASTATIN 40 MG TAB PO SCH (21:06)
[2017-03-28] MEDS: METOPROLOL 25 MG TAB PO SCH (21:06)
[2017-03-28] MEDS: TAMSULOSIN (SR) 0.4 MG CAP PO SCH (21:06)
[2017-03-28] MEDS: ISOSORBIDE DINITRATE 10 MG TAB PO SCH (22:17)
[2017-03-28] MEDS: INSULIN GLARGINE [LANtus] 3 ML PEN SC SCH (22:19)
[2017-03-28] MEDS: HEPARIN 5,000 UNIT/0.5 ML VIAL SC SCH (22:19)
[2017-03-28 23:52] VITALS: BP 111/57; RESP 18
[2017-03-29] VITALS (15 sets, daily range): BP systolic 84–167; BP diastolic 49–90; PULSE 60–72; RESP 18–20
[2017-03-29] MEDS: INSULIN ASPART [NOVOLOG] 3 ML PEN SC SCH ×6 (01:28→21:00)
[2017-03-29] MEDS: HEPARIN 5,000 UNIT/0.5 ML VIAL SC SCH ×3 (06:16→21:23)
[2017-03-29 08:51] LABS: CHOL/HDL RATIO 3.6 RATIO
[2017-03-29] MEDS: METOPROLOL 25 MG TAB PO SCH ×2 (09:00→21:11)
[2017-03-29] MEDS: ISOSORBIDE DINITRATE 10 MG TAB PO SCH ×3 (09:00→21:11)
[2017-03-29] MEDS: AMLODIPINE 5 MG TAB PO SCH (10:19)
[2017-03-29] MEDS: LOSARTAN 50 MG TAB PO SCH (10:19)
[2017-03-29] MEDS: ASPIRIN (EC) 81 MG TAB PO SCH (10:19)
--- NOTE | 2017-03-29 15:45 | PN ---
DATE: 03/29/2017 SUBJECTIVE DATA: Denies any chest pain. Denies any dyspnea. OBJECTIVE DATA: VITAL SIGNS: Temperature 98.5, pulse rate 60, respiratory rate 20, blood pressure 106/56, oxygen saturation 96% on room air. GENERAL: This is an obese male patient lying in bed in no apparent distress. HEENT: Head normocephalic and atraumatic. Anicteric sclerae. Conjunctivae clear. ENT: Nasal septum is midline. Oral mucosa is dry. NECK: Supple. No JVD noticed. RESPIRATORY: Bilaterally clear to auscultation. No adventitious breath sounds heard. No use of accessory muscles of respiration. CARDIAC: Regular rate and rhythm. S1, S2 heard. ABDOMEN: Soft, nontender and nondistended. Bowel sounds positive in all 4 quadrants. GENITOURINARY: Deferred. EXTREMITIES: No cyanosis, no clubbing, no edema. Peripheral pulses are palpable. NEUROLOGIC: The patient is awake, alert and oriented. Cranial nerves are grossly intact. LABORATORY AND DIAGNOSTIC DATA: WBC 10.4, hemoglobin 14.0, hematocrit 42.0, platelet count 215. Sodium 142, potassium 4.0, chloride 100, carbon dioxide 26 , anion gap 13, BUN 15, creatinine 0.8, glucose 130, calcium 9.3, triglycerides 159, total cholesterol 105, LDL 44, HDL 29. ASSESSMENT AND PLAN: 1. Angina pectoris. Rule out acute coronary syndrome. The patient's stress test that was done previously showed evidence of ischemia. The patient will be continued on aspirin. The patient is being followed by Cardiology. Tentative plan for left heart catheterization. 2. Essential hypertension. Continue antihypertensives. Blood pressure fairly well controlled. 3. Type 2 diabetes mellitus. Continue sliding scale insulin. Blood sugars well controlled. 4. Dyslipidemia. Continue statin. Low cholesterol diet. 5. Nicotine use. Cessation advised. 6. Fluid, electrolytes and nutrition. Carbohydrate controlled low cholesterol diet. 7. Deep venous thrombosis prophylaxis. Subcutaneous heparin. 8. Gastrointestinal prophylaxis. Histamine 2 receptor blockers. 9. Continue inpatient monitoring. Await further Cardiology recommendations. The case was discussed with Dr. Faulkner. ONI FAULKNER MD, AM/MELY Conf#: [id number] DID#: [id number] [facility]
--- NOTE | 2017-03-29 15:59 | RADRPT ---
Vent Rate: 68 bpm RR Interval: 0 msec [place] Interval: 182 msec QRS Duration: 112 msec QT Interval: 432 msec QTC Interval: 459 msec P-R-T Yeso: 14 - 26 - 52 degrees Normal sinus rhythm Incomplete right bundle branch block Borderline ECG Electronically Signed By: Jon Nowka [id number]
[2017-03-29] MEDS: FAMOTIDINE 20 MG TAB PO SCH (17:18)
[2017-03-29] MEDS: ATORVASTATIN 40 MG TAB PO SCH (21:10)
[2017-03-29] MEDS: TAMSULOSIN (SR) 0.4 MG CAP PO SCH (21:11)
[2017-03-29] MEDS: INSULIN GLARGINE [LANtus] 3 ML PEN SC SCH (21:18)
[2017-03-30] VITALS (11 sets, daily range): BP systolic 100–130; BP diastolic 55–72; PULSE 58–75; RESP 18–20
[2017-03-30] MEDS: FAMOTIDINE 20 MG TAB PO SCH ×4 (00:44→21:07)
[2017-03-30] MEDS: INSULIN ASPART [NOVOLOG] 3 ML PEN SC SCH ×6 (01:00→21:00)
[2017-03-30] MEDS: HEPARIN 5,000 UNIT/0.5 ML VIAL SC SCH ×2 (06:17→13:53)
[2017-03-30 07:53] LABS: ADD SCAN DIFF NO
[2017-03-30 07:56] LABS: BASOPHILS % 0.3 % (0.0-2.0); EOSINOPHILS # 0.3 10^3/ul (0.0-0.5); EOSINOPHILS % 3.1 % (0.0-7.0); HEMATOCRIT 41.9 % (42.0-52.0); HEMOGLOBIN 13.9 g/dl (14.0-18.0); LYMPHOCYTES # 2.9 10^3/ul (0.8-2.9); LYMPHOCYTES % 32.8 % (15.0-51.0); MEAN CORPUSCULAR HEMOGLOBIN 29.5 pg (29.0-33.0); MEAN CORPUSCULAR HGB CONC 33.2 g/dl (32.0-37.0); MEAN PLATELET VOLUME 10.8 fl (7.4-10.4); MONOCYTE # 0.5 10^3/ul (0.3-0.9); NEUTROPHIL # 5.2 10^3/ul (1.6-7.5); NEUTROPHILS % 58.4 % (39.0-77.0); PLATELET COUNT 203 10^3/UL (140-415); RED BLOOD COUNT 4.71 10^6/ul (4.70-6.10); RED CELL DISTRIBUTION WIDTH 13.6 % (11.5-14.5); WHITE BLOOD COUNT 8.9 10^3/ul (4.8-10.8)
[2017-03-30 08:18] LABS: PHOSPHORUS 4.6 mg/dl (2.5-4.9)
[2017-03-30 08:22] LABS: ALBUMIN 4.3 g/dl (3.3-4.9); ALBUMIN/GLOBULIN RATIO 1.95; BILIRUBIN,INDIRECT 0.3 mg/dl (0-1.1); BILIRUBIN,TOTAL 0.3 mg/dl (0.2-1.3); CALCIUM 9.3 mg/dl (8.4-10.2); CREATININE 0.87 mg/dl (0.61-1.24); POTASSIUM 4.4 mmol/L (3.5-5.1); TOTAL PROTEIN 6.5 g/dl (6.1-8.1)
[2017-03-30] MEDS: ISOSORBIDE DINITRATE 10 MG TAB PO SCH ×3 (09:00→21:12)
[2017-03-30] MEDS: METOPROLOL 25 MG TAB PO SCH ×2 (09:00→21:06)
[2017-03-30] MEDS: ASPIRIN (EC) 81 MG TAB PO SCH (09:27)
[2017-03-30] MEDS: LOSARTAN 50 MG TAB PO SCH (09:27)
[2017-03-30] MEDS: AMLODIPINE 5 MG TAB PO SCH (09:28)
--- NOTE | 2017-03-30 16:25 | CONS ---
Date/Time of Note Date/Time of Note DATE: 03/30/17 TIME: 16:17 Assessment/Plan Assessment/Plan Chief Complaint/Hosp Course IMPRESSION: 1. Chest pain concerning for unstable angina.-negative troponin's but ongoing recurrent pain and positive stress test in last 1 week revealing anterior ischemia 2. Abnormal cardiac stress test last week revealing anterior and inferior ischemia. 3. Hypertension. 4. Dyslipidemia. 5. Positive tobacco usage. 6. Diabetes mellitus. 7. Abnormal electrocardiogram, assess for acute coronary syndrome. Recc: -Tele -Continue BB/ARB/CCB -Continue oral nitrates -Continue asa/statin -AM [facility] with possible PTCA/stent Problems: Consultation Date/Type/Reason Admit Date/Time Mar 30, 2017 at 14:22 Initial Consult Date 03/28/2017 Type of Consultation: Cardiology Reason for Consultation chest pain/angina Referring Provider: DA JARVIS Exam/Review of Systems Vital Signs Vitals Vital Signs Date Time Temp Pulse Resp B/P Pulse Ox O2 Delivery O2 Flow Rate FiO2 03/30/17 16:08 75 03/30/17 15:32 98.1 19 125/66 95 03/30/17 06:00 Room Air 03/28/17 18:01 6.0 03/28/17 14:02 21 Intake and Output 03/29/17 03/29/17 03/30/17 15:00 23:00 07:00 Intake Total 1000 ml 500 ml Output Total 450 ml 1500 ml Balance -450 ml 1000 ml -1000 ml Exam Review of Systems: CONSTITUTIONAL: No fevers, chills. PULMONARY: No sob CARDIOVASCULAR: No chest pain/palpitations GASTROINTESTINAL: No nausea/vomiting. GENITOURINARY: No hematuria/dysuria. MUSCULOSKELETAL: No myagias/arthalgias. PSYCHIATRIC: The patient denies depression. NEUROLOGIC: No weakness Constitutional: alert Psych: no complaints Head: normocephalic ENMT: mucosa pink and moist Neck: jvd (8-9 cm water), supple Respiratory: diminished breath sounds Cardiovascular: regular rate and rhythm Gastrointestinal: non-tender, soft Musculoskeletal: muscle tone (normal) Extremities: edema (none) Neurological: other (No focal deficits) Results Result Diagram: 03/30/17 0702 03/30/17 0702 Results 24 hrs Laboratory Tests Test 03/29/17 17:15 03/29/17 21:09 03/30/17 01:15 03/30/17 06:14 Bedside Glucose 144 157 119 120 Test 03/30/17 07:02 03/30/17 09:26 03/30/17 13:02 White Blood Count 8.9 Red Blood Count 4.71 Hemoglobin 13.9 L Hematocrit 41.9 L Mean Corpuscular Volume 89.0 Mean Corpuscular Hemoglobin 29.5 Mean Corpuscular Hemoglobin Concent 33.2 Red Cell Distribution Width 13.6 Platelet Count 203 Mean Platelet Volume 10.8 H Neutrophils % 58.4 Lymphocytes % 32.8 Monocytes % 5.0 Eosinophils % 3.1 Basophils % 0.3 Nucleated Red Blood Cells % 0.0 Neutrophils # 5.2 Lymphocytes # 2.9 Monocytes # 0.5 Eosinophils # 0.3 Basophils # 0.0 Nucleated Red Blood Cells # 0.0 Sodium Level 143 Potassium Level 4.4 Chloride Level 108 Carbon Dioxide Level 26 Anion Gap 13 Blood Urea Nitrogen 16 Creatinine 0.87 Glucose Level 110 Hemoglobin A1c 8.1 H Calcium Level 9.3 Phosphorus Level 4.6 Magnesium Level 2.0 Total Bilirubin 0.3 Direct Bilirubin 0.00 Indirect Bilirubin 0.3 Aspartate Amino Transf (AST/SGOT) 15 Alanine Aminotransferase (ALT/SGPT) 33 Alkaline Phosphatase 101 Total Protein 6.5 # Albumin 4.3 Globulin 2.20 Albumin/Globulin Ratio 1.95 Thyroid Stimulating Hormone (TSH) Pending Bedside Glucose 124 135 Medications Medications Current Medications Metoprolol Tartrate (Lopressor) 25 mg BID PO Last administered on 03/29/17 21: 11; Admin Dose 25 MG; Start 03/28/17 at 21:00 Nitroglycerin (Nitroglycerin (Sl Tab) 0.4 Mg) 1 tab Q5M PRN SL ANGINA; Start at 16:30 Isosorbide Dinitrate (Isordil) 10 mg TID PO Last administered on 03/30/17 13: 50; Admin Dose 10 MG; Start 03/28/17 at 21:00 Amlodipine Besylate (Norvasc) 5 mg DAILY PO Last administered on 03/30/17 09: 28; Admin Dose 5 MG; Start 03/29/17 at 09:00 Aspirin (Halfprin) 81 mg DAILY PO Last administered on 03/30/17 09:27; Admin Dose 81 MG; Start 03/29/17 at 09:00 Atorvastatin Calcium (Lipitor) 40 mg QHS PO Last administered on 03/29/17 21: 10; Admin Dose 40 MG; Start 03/28/17 at 21:00 Insulin Glargine (Lantus) 36 unit QHS SC Last administered on 03/29/17 21:18; Admin Dose 36 UNIT; Start 03/28/17 at 21:00 Losartan Potassium (Cozaar) 50 mg DAILY PO Last administered on 03/30/17 09:27 ; Admin Dose 50 MG; Start 03/29/17 at 09:00 Tamsulosin HCl (Flomax) 0.4 mg QPM PO Last administered on 03/29/17 21:11; Admin Dose 0.4 MG; Start 03/28/17 at 21:00 Docusate Sodium (Colace) 100 mg Q12H PRN PO CONSTIPATION; Start 03/28/17 at 18: 30 Magnesium Hydroxide (Milk Of Mag) 30 ml DAILY PRN PO CONSTIPATION; Start at 18:30 Bisacodyl (Dulcolax) 5 mg DAILY PRN PO CONSTIPATION; Start 03/28/17 at 18:30 Heparin Sodium (Porcine) (Heparin (5000 Units/0.5 ml)) 5,000 unit Q8 SC Last administered on 03/30/17 13:53; Admin Dose 5,000 UNIT; Start 03/28/17 at 22:00 Insulin Aspart (Novolog Insulin Pen) NOVOLOG *MODERATE* ALGORI... Q4 SC Last administered on 03/29/17 17:19; Admin Dose 2 UNIT; Start 03/28/17 at 21:00 Miscellaneous Information 1 ea NOTE XX ; Start 03/28/17 at 19:30 Glucose (Glutose) 15 gm Q15M PRN PO DECREASED GLUCOSE; Start 03/28/17 at 19:30 Glucose (Glutose) 22.5 gm Q15M PRN PO DECREASED GLUCOSE; Start 03/28/17 at 19: 30 Dextrose (D50w Syringe) 25 ml Q15M PRN IV DECREASED GLUCOSE; Start 03/28/17 at 19:30 Dextrose (D50w Syringe) 50 ml Q15M PRN IV DECREASED GLUCOSE; Start 03/28/17 at 19:30 Glucagon (Glucagen) 1 mg Q15M PRN IM DECREASED GLUCOSE; Start 03/28/17 at 19:30 Glucose (Glutose) 15 gm Q15M PRN BUCCAL DECREASED GLUCOSE; Start 03/28/17 at 19 :30 Famotidine (Pepcid) 20 mg BID PO Last administered on 03/30/17t 09:28; Admin Dose 20 MG; Start 03/29/17 at 16:00 ZEB ALVARADO Mar 30, 2017 16:25
--- NOTE | 2017-03-30 18:04 | PN ---
Date/Time of Note Date/Time of Note DATE: 03/30/17 TIME: 18:02 Assessment/Plan VTE Prophylaxis VTE Prophylaxis Intervention: SCD's Lines/Catheters IV C[facility]ter Type [facility]from [facility]): [facility] Assessment/Plan Assessment/Plan 1. Angina pectoris. Rule out acute coronary syndrome. The patient's stress test that was done on 12/18/2015 showed what was done on previously showed evidence of ischemia. The patient will be continued on aspirin. The patient is being followed by Cardiology. Plan for left heart catheterization. 2. Essential hypertension. Continue antihypertensives. Blood pressure fairly well controlled. 3. Type 2 diabetes mellitus. Continue sliding scale insulin. Blood sugars well controlled. 4. Dyslipidemia. Continue statin. Low cholesterol diet. 5. Nicotine use. Cessation advised. 6. Fluid, electrolytes and nutrition on a carbohydrate controlled low cholesterol diet. 7. Deep venous thrombosis prophylaxis. Subcutaneous heparin. 8. Gastrointestinal prophylaxis. Histamine 2 receptor blockers. 9. Continue inpatient monitoring. Await further Cardiology recommendations including left heart catheterizatio plan for LHC tomorrow Subjective 24 Hr Interval Summary Free Text/Dictation still c/o chest pain, BP stable,a febrile Exam/Review of Systems Vital Signs Vitals Vital Signs Date Time Temp Pulse Resp B/P Pulse Ox O2 Delivery O2 Flow Rate FiO2 03/30/17 16:08 75 03/30/17 15:32 98.1 19 125/66 95 03/30/17 06:00 Room Air 03/28/17 18:01 6.0 03/28/17 14:02 21 Intake and Output 03/29/17 03/29/17 03/30/17 15:00 23:00 07:00 Intake Total 1000 ml 500 ml Output Total 450 ml 1500 ml Balance -450 ml 1000 ml -1000 ml Exam Constitutional: alert Psych: other (chest pain ) Head: normocephalic Eyes: nl conjunctiva ENMT: nl external ears & nose Neck: supple Respiratory: clear to auscultation Cardiovascular: regular rate and rhythm Gastrointestinal: soft Extremities: normal pulses 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 Results Result Diagram: 03/30/17 0702 03/30/17 0702 Results 24 hrs Laboratory Tests Test 03/29/17 21:09 03/30/17 01:15 03/30/17 06:14 03/30/17 07:02 Bedside Glucose 157 119 120 White Blood Count 8.9 Red Blood Count 4.71 Hemoglobin 13.9 L Hematocrit 41.9 L Mean Corpuscular Volume 89.0 Mean Corpuscular Hemoglobin 29.5 Mean Corpuscular Hemoglobin Concent 33.2 Red Cell Distribution Width 13.6 Platelet Count 203 Mean Platelet Volume 10.8 H Neutrophils % 58.4 Lymphocytes % 32.8 Monocytes % 5.0 Eosinophils % 3.1 Basophils % 0.3 Nucleated Red Blood Cells % 0.0 Neutrophils # 5.2 Lymphocytes # 2.9 Monocytes # 0.5 Eosinophils # 0.3 Basophils # 0.0 Nucleated Red Blood Cells # 0.0 Sodium Level 143 Potassium Level 4.4 Chloride Level 108 Carbon Dioxide Level 26 Anion Gap 13 Blood Urea Nitrogen 16 Creatinine 0.87 Glucose Level 110 Hemoglobin A1c 8.1 H Calcium Level 9.3 Phosphorus Level 4.6 Magnesium Level 2.0 Total Bilirubin 0.3 Direct Bilirubin 0.00 Indirect Bilirubin 0.3 Aspartate Amino Transf (AST/SGOT) 15 Alanine Aminotransferase (ALT/SGPT) 33 Alkaline Phosphatase 101 Total Protein 6.5 # Albumin 4.3 Globulin 2.20 Albumin/Globulin Ratio 1.95 Thyroid Stimulating Hormone (TSH) Pending Test 03/30/17 09:26 03/30/17 13:02 03/30/17 17:02 Bedside Glucose 124 135 126 Medications Medications Current Medications Metoprolol Tartrate (Lopressor) 25 mg BID PO Last administered on 03/29/17 21: 11; Admin Dose 25 MG; Start 03/28/17 at 21:00 Nitroglycerin (Nitroglycerin (Sl Tab) 0.4 Mg) 1 tab Q5M PRN SL ANGINA; Start at 16:30 Isosorbide Dinitrate (Isordil) 10 mg TID PO Last administered on 03/30/17 13: 50; Admin Dose 10 MG; Start 03/28/17 at 21:00 Amlodipine Besylate (Norvasc) 5 mg DAILY PO Last administered on 03/30/17 09: 28; Admin Dose 5 MG; Start 03/29/17 at 09:00 Aspirin (Halfprin) 81 mg DAILY PO Last administered on 03/30/17 09:27; Admin Dose 81 MG; Start 03/29/17 at 09:00 Atorvastatin Calcium (Lipitor) 40 mg QHS PO Last administered on 03/29/17 21: 10; Admin Dose 40 MG; Start 03/28/17 at 21:00 Insulin Glargine (Lantus) 36 unit QHS SC Last administered on 03/29/17 21:18; Admin Dose 36 UNIT; Start 03/28/17 at 21:00 Losartan Potassium (Cozaar) 50 mg DAILY PO Last administered on 03/30/17 09:27 ; Admin Dose 50 MG; Start 03/29/17 at 09:00 Tamsulosin HCl (Flomax) 0.4 mg QPM PO Last administered on 03/29/17 21:11; Admin Dose 0.4 MG; Start 03/28/17 at 21:00 Docusate Sodium (Colace) 100 mg Q12H PRN PO CONSTIPATION; Start 03/28/17 at 18: 30 Magnesium Hydroxide (Milk Of Mag) 30 ml DAILY PRN PO CONSTIPATION; Start at 18:30 Bisacodyl (Dulcolax) 5 mg DAILY PRN PO CONSTIPATION; Start 03/28/17 at 18:30 Heparin Sodium (Porcine) (Heparin (5000 Units/0.5 ml)) 5,000 unit Q8 SC Last administered on 03/30/17 13:53; Admin Dose 5,000 UNIT; Start 03/28/17 at 22:00 ; Status Future Hold Insulin Aspart (Novolog Insulin Pen) NOVOLOG *MODERATE* ALGORI... Q4 SC Last administered on 03/29/17 17:19; Admin Dose 2 UNIT; Start 03/28/17 at 21:00 Miscellaneous Information 1 ea NOTE XX ; Start 03/28/17 at 19:30 Glucose (Glutose) 15 gm Q15M PRN PO DECREASED GLUCOSE; Start 03/28/17 at 19:30 Glucose (Glutose) 22.5 gm Q15M PRN PO DECREASED GLUCOSE; Start 03/28/17 at 19: 30 Dextrose (D50w Syringe) 25 ml Q15M PRN IV DECREASED GLUCOSE; Start 03/28/17 at 19:30 Dextrose (D50w Syringe) 50 ml Q15M PRN IV DECREASED GLUCOSE; Start 03/28/17 at 19:30 Glucagon (Glucagen) 1 mg Q15M PRN IM DECREASED GLUCOSE; Start 03/28/17 at 19:30 Glucose (Glutose) 15 gm Q15M PRN BUCCAL DECREASED GLUCOSE; Start 03/28/17 at 19 :30 Famotidine (Pepcid) 20 mg BID PO Last administered on 03/30/17t 09:28; Admin Dose 20 MG; Start 03/29/17 at 16:00 Diazepam (Valium) 5 mg OC ONCE PO ; Start 03/31/17 at 05:00; Stop 03/31/17 at 05:01 Diphenhydramine HCl (Benadryl) 50 mg OC ONCE PO ; Start 03/31/17 at 05:00; Stop 03/31/17 at 05:01 JULIANO PATEL MD Mar 30, 2017 18:04
[2017-03-30] MEDS: TAMSULOSIN (SR) 0.4 MG CAP PO SCH (21:06)
[2017-03-30] MEDS: ATORVASTATIN 40 MG TAB PO SCH (21:07)
[2017-03-30] MEDS: INSULIN GLARGINE [LANtus] 3 ML PEN SC SCH (21:10)
[2017-03-31] VITALS (21 sets, daily range): BP systolic 97–123; BP diastolic 58–88; PULSE 56–75; RESP 12–22
[2017-03-31] MEDS: INSULIN ASPART [NOVOLOG] 3 ML PEN SC SCH ×6 (01:00→23:08)
[2017-03-31] MEDS ORDERED: DIAZEPAM 5 MG TAB PO ONE (05:00)
[2017-03-31] MEDS ORDERED: DIPHENHYDRAMINE 50 MG CAP PO ONE (05:00)
[2017-03-31 08:10] LABS: ADD SCAN DIFF NO
[2017-03-31 08:14] LABS: BASOPHILS % 0.3 % (0.0-2.0); EOSINOPHILS # 0.3 10^3/ul (0.0-0.5); EOSINOPHILS % 3.3 % (0.0-7.0); HEMATOCRIT 43.4 % (42.0-52.0); HEMOGLOBIN 13.9 g/dl (14.0-18.0); LYMPHOCYTES % 31.2 % (15.0-51.0); MEAN CORPUSCULAR HEMOGLOBIN 29.1 pg (29.0-33.0); MEAN CORPUSCULAR VOLUME 90.8 fl (82.0-101.0); MEAN PLATELET VOLUME 10.7 fl (7.4-10.4); MONOCYTE # 0.6 10^3/ul (0.3-0.9); MONOCYTES % 5.8 % (0.0-11.0); NEUTROPHIL # 5.7 10^3/ul (1.6-7.5); PLATELET COUNT 208 10^3/UL (140-415); RED BLOOD COUNT 4.78 10^6/ul (4.70-6.10); RED CELL DISTRIBUTION WIDTH 13.8 % (11.5-14.5); WHITE BLOOD COUNT 9.6 10^3/ul (4.8-10.8)
[2017-03-31 08:43] LABS: INR 0.91; PROTIME 12.3 Sec (12.2-14.2)
[2017-03-31 08:44] LABS: PARTIAL THROMBOPLASTIN TIME 31.7 Sec (25.0-35.0)
[2017-03-31 08:51] LABS: CALCIUM 9.3 mg/dl (8.4-10.2); CREATININE 0.97 mg/dl (0.61-1.24)
[2017-03-31] MEDS ORDERED: HEPARIN 1000 UNITS/NS (A-LINE) 1,000 ML ONE (10:11)
[2017-03-31] MEDS ORDERED: MIDAZOLAM 1 MG/ML 2 ML INJ ONE (10:11)
[2017-03-31] MEDS ORDERED: IODIXANOL LOCM 100 ML BTL ONE (10:11)
[2017-03-31] MEDS ORDERED: HEPARIN 1000 UNITS/ML 10 ML INJ ONE (10:11)
[2017-03-31] MEDS ORDERED: LIDOCAINE 1% (MDV) 20 ML INJ ONE (10:11)
[2017-03-31] MEDS ORDERED: NITROGLYCERIN (IC) 100 MCG/ML INJ ONE (10:12)
[2017-03-31] MEDS ORDERED: VERAPAMIL 5 MG INJ ONE (10:12)
[2017-03-31] MEDS ORDERED: FENTAnyl 50 MCG/ML VIAL ONE (10:12)
[2017-03-31] MEDS ORDERED: SOD CHLORIDE 0.9% 1,000 ML IV SCH (11:04)
--- NOTE | 2017-03-31 11:04 | CONS ---
Date/Time of Note Date/Time of Note DATE: 03/31/17 TIME: 11:02 Assessment/Plan Assessment/Plan Chief Complaint/Hosp Course IMPRESSION: 1. Chest pain concerning for unstable angina.-negative troponin's but ongoing recurrent pain and positive stress test in last 1 week revealing anterior ischemia. Now OD#0 s/p LHC revealing no sig obstructive cad 2. Abnormal cardiac stress test last week revealing anterior and inferior ischemia. 3. Hypertension. 4. Dyslipidemia. 5. Positive tobacco usage. 6. Diabetes mellitus. 7. Abnormal electrocardiogram, assess for acute coronary syndrome. Recc: -Tele -Continue BB/ARB/CCB -Continue oral nitrates -Continue asa/statin -Patient with no sig obstructive cad by cath today. Thus d/c planning for later this afternoon with outpatient f/u Problems: Consultation Date/Type/Reason Admit Date/Time Mar 30, 2017 at 14:22 Initial Consult Date 03/28/2017 Type of Consultation: Cardiology Reason for Consultation abnl mpi/chest pain Referring Provider: DA JARVIS Exam/Review of Systems Vital Signs Vitals Vital Signs Date Time Temp Pulse Resp B/P Pulse Ox O2 Delivery O2 Flow Rate FiO2 03/31/17 08:15 60 03/31/17 07:38 97.9 19 120/76 97 03/30/17 06:00 Room Air 03/28/17 18:01 6.0 03/28/17 14:02 21 Intake and Output 03/30/17 03/30/17 03/31/17 15:00 23:00 07:00 Intake Total 600 ml 400 ml Balance 600 ml 400 ml Exam Review of Systems: CONSTITUTIONAL: No fevers, chills. PULMONARY: No sob CARDIOVASCULAR:intermittent chest pain GASTROINTESTINAL: No nausea/vomiting. GENITOURINARY: No hematuria/dysuria. MUSCULOSKELETAL: No myagias/arthalgias. PSYCHIATRIC: The patient denies depression. NEUROLOGIC: No weakness Constitutional: alert, oriented Psych: no complaints Head: normocephalic ENMT: mucosa pink and moist Neck: jvd (8-9 cm water), supple Respiratory: clear to auscultation Cardiovascular: regular rate and rhythm Gastrointestinal: non-tender, soft Musculoskeletal: muscle tone (normal) Extremities: edema (none) Neurological: other (No focal deficits) Results Result Diagram: 03/31/17 0610 03/31/17 0610 Results 24 hrs Laboratory Tests Test 03/30/17 13:02 03/30/17 17:02 03/30/17 21:05 03/31/17 00:58 Bedside Glucose 135 126 142 156 Test 03/31/17 05:17 03/31/17 06:10 03/31/17 08:19 Bedside Glucose 158 133 White Blood Count 9.6 Red Blood Count 4.78 Hemoglobin 13.9 L Hematocrit 43.4 Mean Corpuscular Volume 90.8 Mean Corpuscular Hemoglobin 29.1 Mean Corpuscular Hemoglobin Concent 32.0 Red Cell Distribution Width 13.8 Platelet Count 208 Mean Platelet Volume 10.7 H Neutrophils % 59.0 Lymphocytes % 31.2 Monocytes % 5.8 Eosinophils % 3.3 Basophils % 0.3 Nucleated Red Blood Cells % 0.0 Neutrophils # 5.7 Lymphocytes # 3.0 H Monocytes # 0.6 Eosinophils # 0.3 Basophils # 0.0 Nucleated Red Blood Cells # 0.0 Prothrombin Time 12.3 Prothrombin Time Ratio 1.0 INR International Normalized Ratio 0.91 Activated Partial Thromboplast Time 31.7 Sodium Level 142 Potassium Level 4.0 Chloride Level 107 Carbon Dioxide Level 25 Anion Gap 14 Blood Urea Nitrogen 15 Creatinine 0.97 Glucose Level 129 Calcium Level 9.3 Medications Medications Current Medications Metoprolol Tartrate (Lopressor) 25 mg BID PO Last administered on 03/30/17 21: 06; Admin Dose 25 MG; Start 03/28/17 at 21:00 Nitroglycerin (Nitroglycerin (Sl Tab) 0.4 Mg) 1 tab Q5M PRN SL ANGINA; Start at 16:30 Isosorbide Dinitrate (Isordil) 10 mg TID PO Last administered on 03/30/17 21: 12; Admin Dose 10 MG; Start 03/28/17 at 21:00 Amlodipine Besylate (Norvasc) 5 mg DAILY PO Last administered on 03/30/17 09: 28; Admin Dose 5 MG; Start 03/29/17 at 09:00 Aspirin (Halfprin) 81 mg DAILY PO Last administered on 03/30/17 09:27; Admin Dose 81 MG; Start 03/29/17 at 09:00 Atorvastatin Calcium (Lipitor) 40 mg QHS PO Last administered on 03/30/17 21: 07; Admin Dose 40 MG; Start 03/28/17 at 21:00 Insulin Glargine (Lantus) 36 unit QHS SC Last administered on 03/30/17 21:10; Admin Dose 36 UNIT; Start 03/28/17 at 21:00 Losartan Potassium (Cozaar) 50 mg DAILY PO Last administered on 03/30/17 09:27 ; Admin Dose 50 MG; Start 03/29/17 at 09:00 Tamsulosin HCl (Flomax) 0.4 mg QPM PO Last administered on 03/30/17 21:06; Admin Dose 0.4 MG; Start 03/28/17 at 21:00 Docusate Sodium (Colace) 100 mg Q12H PRN PO CONSTIPATION; Start 03/28/17 at 18: 30 Magnesium Hydroxide (Milk Of Mag) 30 ml DAILY PRN PO CONSTIPATION; Start at 18:30 Bisacodyl (Dulcolax) 5 mg DAILY PRN PO CONSTIPATION; Start 03/28/17 at 18:30 Heparin Sodium (Porcine) (Heparin (5000 Units/0.5 ml)) 5,000 unit Q8 SC Last administered on 03/30/17 13:53; Admin Dose 5,000 UNIT; Start 03/28/17 at 22:00 ; Status Future Hold Insulin Aspart (Novolog Insulin Pen) NOVOLOG *MODERATE* ALGORI... Q4 SC Last administered on 03/29/17 17:19; Admin Dose 2 UNIT; Start 03/28/17 at 21:00 Miscellaneous Information 1 ea NOTE XX ; Start 03/28/17 at 19:30 Glucose (Glutose) 15 gm Q15M PRN PO DECREASED GLUCOSE; Start 03/28/17 at 19:30 Glucose (Glutose) 22.5 gm Q15M PRN PO DECREASED GLUCOSE; Start 03/28/17 at 19: 30 Dextrose (D50w Syringe) 25 ml Q15M PRN IV DECREASED GLUCOSE; Start 03/28/17 at 19:30 Dextrose (D50w Syringe) 50 ml Q15M PRN IV DECREASED GLUCOSE; Start 03/28/17 at 19:30 Glucagon (Glucagen) 1 mg Q15M PRN IM DECREASED GLUCOSE; Start 03/28/17 at 19:30 Glucose (Glutose) 15 gm Q15M PRN BUCCAL DECREASED GLUCOSE; Start 03/28/17 at 19 :30 Famotidine (Pepcid) 20 mg BID PO Last administered on 03/30/17t 21:07; Admin Dose 20 MG; Start 03/29/17 at 16:00 ZEB ALVARADO Mar 31, 2017 11:04
[2017-03-31] MEDS ORDERED: AL HYDROX/MG HYDROX/SIMETH 30 ML CUP PO PRN (11:30)
[2017-03-31] MEDS ORDERED: ACETAMINOPHEN 325 MG TAB PO PRN (11:30)
[2017-03-31] MEDS ORDERED: ONDANSETRON 4 MG INJ IV PRN (11:30)
--- NOTE | 2017-03-31 11:58 | CARRPT ---
DATE OF PROCEDURE: 03/31/2017 TYPE OF PROCEDURE: 1. Left heart catheterization. 2. Coronary angiography. 3. Measurement of left ventricular end diastolic pressure. ATTENDING PHYSICIAN: Zeb Stacy REFERRING PHYSICIAN: Dr. Ernesto Bronson INDICATION: Chest pain, with positive stress test findings for anterior inferior ischemia, high ris k markers for cardiovascular events. BRIEF HISTORY AND HOSPITAL COURSE: Mr. Mclain is a 61-year-old male with a history of hypertension, dyslipidemia and ongoing tobacco usage, who initially presented with complaints of substernal chest pain. The patient had had a very recent abnormal cardiac stress test, revealing ischemia in possibl e multivessel distribution. Given these findings, the patient was referred for and presents today i n order to undergo left heart catheterization to assess for the possibility of significant obstructi ve coronary artery disease, lending to symptoms of chest pain and subsequent positive stress test fi ndings. PROCEDURE: After informed consent was obtained the patient was brought to the [facility] ostal cardiac catheterization, where his right radial area was prepped and draped in the usual rox rile fashion. Lidocaine 2% was infiltrated into the right radial artery in order to achieve adequat e anesthesia. Using the modified Seldinger technique, the radial artery was cannulated and a 6-Fren ch arterial was placed. A 6-Chinese JL3.5 catheter was used to cannulate the left main coronary osti um. With contrast injection, multiple views of the left coronary arterial system were obtained. Th e JL3.5 was removed over a guidewire and a JR4 was used to attempt to cannulate the right coronary a rterial ostium, which proved unsuccessful. Subsequently this was exchanged for a Ralf right, wh ich was able to successfully cannulate the right coronary arterial ostium. With contrast injection, multiple views of the right coronary arterial system were obtained. The Ralf right was removed . The LVEDP had initially been checked with the JR and pulled back across the aortic valve to assess for significant gradient, which there was not, and removed. Subsequently at this time this complet ed the procedure. The patient's sheath was removed and a TR band was applied. There were no noted complications. FINDINGS: Coronary angiography: Right coronary artery proximally is a 3-mm vessel, has a 20% stenosis in its p roximal portion and 30% stenosis in its mid portion. The remainder of the right coronary artery is free of significant focal stenoses. It is a dominant vessel, and therefore gives off a left-sided P DA sub 2-mm vessel, with no significant focal stenoses. The posterolateral branch is a 2.5-mm vesse l, covers a long territory, with mild luminal irregularities up to 20%. The left main proximally is a 4-mm vessel and has an ostial 20 to 30% stenosis. The circumflex proximally is a 3-mm vessel and has a 20 to 30% stenosis in its mid distal portion. There is a proximal branching obtuse marginal 2-mm vessel, with no focal stenoses and a mid branchin g obtuse marginal 2-mm, with no significant focal stenoses. Additionally, the circumflex is a codom inant vessel and therefore gives off a left-sided PDA, 2-mm, with no significant focal stenoses. The LAD proximally is a 3.5-mm vessel and in its midportion had luminal irregularities of approximat gregory 20%. The remainder of the LAD is free of significant focal stenoses. A very proximal branching diagonal, 2-mm, with no significant focal stenoses. Otherwise there is paucity of diagonals. MEASUREMENTS: Left ventricular end diastolic pressure is 20 to 25. TOTAL FLUOROSCOPY TIME: 5.4 minutes. TOTAL CONTRAST: 75 mL. IMPRESSION: 1. Mild nonobstructive coronary artery disease. 2. Elevated left heart filling pressures. 3. No significant aortic stenosis by gradient. RECOMMENDATIONS: In light of the procedure findings would: 1. Maximize medical management. 2. Aggressive risk factor reduction. 3. The patient will be readmitted to the telemetry floor for post-catheterization observation, with probable discharge later this afternoon. Dictated By: ZEB SORIA/NTS Conf#: [id number] DID#: [id number] CC: DA JARVIS MD;*EndCC*
[2017-03-31 13:04] LABS: THYROID STIMULATING HORMONE 1.49 MIU/L (0.465-4.680)
[2017-03-31] MEDS: LOSARTAN 50 MG TAB PO SCH (13:47)
[2017-03-31] MEDS: ISOSORBIDE DINITRATE 10 MG TAB PO SCH ×3 (13:49→22:38)
[2017-03-31] MEDS: AMLODIPINE 5 MG TAB PO SCH (13:50)
[2017-03-31] MEDS: FAMOTIDINE 20 MG TAB PO SCH ×2 (13:51→22:38)
[2017-03-31] MEDS: METOPROLOL 25 MG TAB PO SCH ×2 (13:56→22:40)
[2017-03-31] MEDS: ASPIRIN (EC) 81 MG TAB PO SCH (13:56)
--- NOTE | 2017-03-31 17:20 | PN ---
Date/Time of Note Date/Time of Note DATE: 03/31/17 TIME: 17:18 Assessment/Plan VTE Prophylaxis VTE Prophylaxis Intervention: heparin Lines/Catheters IV Catheter Type (from Nrs): Saline Lock Assessment/Plan Assessment/Plan 1. Angina pectoris. s/p LHC that showed Non obstructive CAD 2. Essential hypertension. Continue antihypertensives. Blood pressure fairly well controlled. 3. Type 2 diabetes mellitus. Continue sliding scale insulin. Blood sugars well controlled. 4. Dyslipidemia. Continue statin. Low cholesterol diet. 5. Nicotine use. Cessation advised. 6. Fluid, electrolytes and nutrition on a carbohydrate controlled low cholesterol diet. 7. Deep venous thrombosis prophylaxis. Subcutaneous heparin. 8. Gastrointestinal prophylaxis. Histamine 2 receptor blockers. d/c plan home tomorrow Subjective 24 Hr Interval Summary Free Text/Dictation s/p LHC that showed Non obstructive CAD, no Chest pain Exam/Review of Systems Vital Signs Vitals Vital Signs Date Time Temp Pulse Resp B/P Pulse Ox O2 Delivery O2 Flow Rate FiO2 03/31/17 16:04 63 03/31/17 15:45 98.5 19 105/58 96 03/31/17 14:04 Nasal Cannula 2.0 03/28/17 14:02 21 Intake and Output 03/30/17 03/30/17 03/31/17 15:00 23:00 07:00 Intake Total 600 ml 400 ml Balance 600 ml 400 ml Exam Constitutional: alert Psych: other (chest pain ) Head: normocephalic Eyes: nl conjunctiva ENMT: nl external ears & nose Neck: supple Respiratory: clear to auscultation Cardiovascular: regular rate and rhythm Gastrointestinal: soft Extremities: normal pulses 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 Results Result Diagram: 03/31/17 0610 03/31/17 0610 Results 24 hrs Laboratory Tests Test 03/30/17 21:05 03/31/17 00:58 03/31/17 05:17 03/31/17 06:10 Bedside Glucose 142 156 158 White Blood Count 9.6 Red Blood Count 4.78 Hemoglobin 13.9 L Hematocrit 43.4 Mean Corpuscular Volume 90.8 Mean Corpuscular Hemoglobin 29.1 Mean Corpuscular Hemoglobin Concent 32.0 Red Cell Distribution Width 13.8 Platelet Count 208 Mean Platelet Volume 10.7 H Neutrophils % 59.0 Lymphocytes % 31.2 Monocytes % 5.8 Eosinophils % 3.3 Basophils % 0.3 Nucleated Red Blood Cells % 0.0 Neutrophils # 5.7 Lymphocytes # 3.0 H Monocytes # 0.6 Eosinophils # 0.3 Basophils # 0.0 Nucleated Red Blood Cells # 0.0 Prothrombin Time 12.3 Prothrombin Time Ratio 1.0 INR International Normalized Ratio 0.91 Activated Partial Thromboplast Time 31.7 Sodium Level 142 Potassium Level 4.0 Chloride Level 107 Carbon Dioxide Level 25 Anion Gap 14 Blood Urea Nitrogen 15 Creatinine 0.97 Glucose Level 129 Calcium Level 9.3 Test 03/31/17 08:19 03/31/17 13:55 03/31/17 17:06 Bedside Glucose 133 183 120 Medications Medications Current Medications Metoprolol Tartrate (Lopressor) 25 mg BID PO Last administered on 03/31/17 13: 56; Admin Dose 25 MG; Start 03/28/17 at 21:00 Nitroglycerin (Nitroglycerin (Sl Tab) 0.4 Mg) 1 tab Q5M PRN SL ANGINA; Start at 16:30 Isosorbide Dinitrate (Isordil) 10 mg TID PO Last administered on 03/31/17 13: 49; Admin Dose 10 MG; Start 03/28/17 at 21:00 Amlodipine Besylate (Norvasc) 5 mg DAILY PO Last administered on 03/31/17 13: 50; Admin Dose 5 MG; Start 03/29/17 at 09:00 Aspirin (Halfprin) 81 mg DAILY PO Last administered on 03/31/17 13:56; Admin Dose 81 MG; Start 03/29/17 at 09:00 Atorvastatin Calcium (Lipitor) 40 mg QHS PO Last administered on 03/30/17 21: 07; Admin Dose 40 MG; Start 03/28/17 at 21:00 Insulin Glargine (Lantus) 36 unit QHS SC Last administered on 03/30/17 21:10; Admin Dose 36 UNIT; Start 03/28/17 at 21:00 Losartan Potassium (Cozaar) 50 mg DAILY PO Last administered on 03/31/17 13:47 ; Admin Dose 50 MG; Start 03/29/17 at 09:00 Tamsulosin HCl (Flomax) 0.4 mg QPM PO Last administered on 03/30/17 21:06; Admin Dose 0.4 MG; Start 03/28/17 at 21:00 Docusate Sodium (Colace) 100 mg Q12H PRN PO CONSTIPATION; Start 03/28/17 at 18: 30 Magnesium Hydroxide (Milk Of Mag) 30 ml DAILY PRN PO CONSTIPATION; Start at 18:30 Bisacodyl (Dulcolax) 5 mg DAILY PRN PO CONSTIPATION; Start 03/28/17 at 18:30 Heparin Sodium (Porcine) (Heparin (5000 Units/0.5 ml)) 5,000 unit Q8 SC Last administered on 03/30/17 13:53; Admin Dose 5,000 UNIT; Start 03/28/17 at 22:00 ; Status Future Hold Insulin Aspart (Novolog Insulin Pen) NOVOLOG *MODERATE* ALGORI... Q4 SC Last administered on 03/31/17 13:57; Admin Dose 4 UNIT; Start 03/28/17 at 21:00 Miscellaneous Information 1 ea NOTE XX ; Start 03/28/17 at 19:30 Glucose (Glutose) 15 gm Q15M PRN PO DECREASED GLUCOSE; Start 03/28/17 at 19:30 Glucose (Glutose) 22.5 gm Q15M PRN PO DECREASED GLUCOSE; Start 03/28/17 at 19: 30 Dextrose (D50w Syringe) 25 ml Q15M PRN IV DECREASED GLUCOSE; Start 03/28/17 at 19:30 Dextrose (D50w Syringe) 50 ml Q15M PRN IV DECREASED GLUCOSE; Start 03/28/17 at 19:30 Glucagon (Glucagen) 1 mg Q15M PRN IM DECREASED GLUCOSE; Start 03/28/17 at 19:30 Glucose (Glutose) 15 gm Q15M PRN BUCCAL DECREASED GLUCOSE; Start 03/28/17 at 19 :30 Famotidine (Pepcid) 20 mg BID PO Last administered on 03/31/17 13:51; Admin Dose 20 MG; Start 03/29/17 at 16:00 Acetaminophen (Tylenol Tab) 650 mg Q4H PRN PO NON-CARDIAC PAIN LEVEL (1-3); Start 03/31/17 at 11:30 Al Hydrox/Mg Hydrox/Simethicone (Mag-Al Plus) 30 ml Q4H PRN PO GASTROINTESTINAL UPSET; Start 03/31/17 at 11:30 Ondansetron HCl (Zofran Inj) 4 mg Q4H PRN IV NAUSEA AND/OR VOMITING; Start at 11:30 JULIANO PATEL MD Mar 31, 2017 17:20
[2017-03-31] MEDS: TAMSULOSIN (SR) 0.4 MG CAP PO SCH (22:37)
[2017-03-31] MEDS: ATORVASTATIN 40 MG TAB PO SCH (22:38)
[2017-03-31] MEDS: INSULIN GLARGINE [LANtus] 3 ML PEN SC SCH (23:03)
[2017-04-01] VITALS (8 sets, daily range): BP systolic 96–126; BP diastolic 53–70; PULSE 54–75; RESP 18–19
[2017-04-01 07:37] LABS: INR 0.91; PROTIME 12.3 Sec (12.2-14.2)
[2017-04-01 07:38] LABS: PARTIAL THROMBOPLASTIN TIME 30.2 Sec (25.0-35.0)
[2017-04-01 07:51] LABS: CALCIUM 9.3 mg/dl (8.4-10.2); CREATININE 0.91 mg/dl (0.61-1.24); POTASSIUM 4.1 mmol/L (3.5-5.1)
[2017-04-01] MEDS ORDERED: INSULIN ASPART [NOVOLOG] 3 ML PEN SC SCH (08:00)
[2017-04-01] MEDS: FAMOTIDINE 20 MG TAB PO SCH (08:27)
[2017-04-01] MEDS: ASPIRIN (EC) 81 MG TAB PO SCH (08:28)
[2017-04-01] MEDS: LOSARTAN 50 MG TAB PO SCH (08:28)
[2017-04-01] MEDS: INSULIN ASPART [NOVOLOG] 3 ML PEN SC SCH ×2 (08:29→12:00)
[2017-04-01] MEDS: ISOSORBIDE DINITRATE 10 MG TAB PO SCH ×2 (09:00→13:43)
[2017-04-01] MEDS: METOPROLOL 25 MG TAB PO SCH (09:00)
[2017-04-01] MEDS: AMLODIPINE 5 MG TAB PO SCH (10:40)
--- NOTE | 2017-04-01 14:23 | PN ---
Date/Time of Note Date/Time of Note DATE: 04/01/17 TIME: 14:22 Assessment/Plan VTE Prophylaxis VTE Prophylaxis Intervention: heparin Lines/Catheters IV Catheter Type (from [facility]): Saline Lock Urinary Cath still in place: No Assessment/Plan Assessment/Plan 1. Angina pectoris. s/p LHC that showed Non obstructive CAD 2. Essential hypertension. Continue antihypertensives. Blood pressure fairly well controlled. 3. Type 2 diabetes mellitus. Continue sliding scale insulin. Blood sugars well controlled. 4. Dyslipidemia. Continue statin. Low cholesterol diet. 5. Nicotine use. Cessation advised. 6. Fluid, electrolytes and nutrition on a carbohydrate controlled low cholesterol diet. 7. Deep venous thrombosis prophylaxis. Subcutaneous heparin. 8. Gastrointestinal prophylaxis. Histamine 2 receptor blockers. d/c plan home today Subjective 24 Hr Interval Summary Free Text/Dictation no chest pain, S/p cardiac cath, non obstructive CAD Exam/Review of Systems Vital Signs Vitals Vital Signs Date Time Temp Pulse Resp B/P Pulse Ox O2 Delivery O2 Flow Rate FiO2 04/01/17 12:17 98.0 65 18 125/70 98 03/31/17 14:04 Nasal Cannula 2.0 03/28/17 14:02 21 Intake and Output 03/31/17 03/31/17 04/01/17 15:00 23:00 07:00 Intake Total 400 ml 350 ml Output Total 400 ml Balance 400 ml -50 ml Exam Constitutional: alert Psych: other (chest pain ) Head: normocephalic Eyes: nl conjunctiva ENMT: nl external ears & nose Neck: supple Respiratory: clear to auscultation Cardiovascular: regular rate and rhythm Gastrointestinal: soft Extremities: normal pulses 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 Results Result Diagram: 03/31/17 0610 04/01/17 0646 Results 24 hrs Laboratory Tests Test 03/31/17 17:06 03/31/17 22:19 04/01/17 04:14 04/01/17 06:45 Bedside Glucose 120 210 226 H Prothrombin Time 12.3 Prothrombin Time Ratio 1.0 INR International Normalized Ratio 0.91 Activated Partial Thromboplast Time 30.2 Test 04/01/17 06:46 04/01/17 08:17 04/01/17 12:04 Sodium Level 142 Potassium Level 4.1 Chloride Level 108 Carbon Dioxide Level 25 Anion Gap 13 Blood Urea Nitrogen 14 Creatinine 0.91 Glucose Level 121 Calcium Level 9.3 Bedside Glucose 157 127 Medications Medications Current Medications Metoprolol Tartrate (Lopressor) 25 mg BID PO Last administered on 03/31/17 22: 40; Admin Dose 25 MG; Start 03/28/17 at 21:00 Nitroglycerin (Nitroglycerin (Sl Tab) 0.4 Mg) 1 tab Q5M PRN SL ANGINA; Start at 16:30 Isosorbide Dinitrate (Isordil) 10 mg TID PO Last administered on 04/01/17 13: 43; Admin Dose 10 MG; Start 03/28/17 at 21:00 Amlodipine Besylate (Norvasc) 5 mg DAILY PO Last administered on 04/01/17 10: 40; Admin Dose 5 MG; Start 03/29/17 at 09:00 Aspirin (Halfprin) 81 mg DAILY PO Last administered on 04/01/17 08:28; Admin Dose 81 MG; Start 03/29/17 at 09:00 Atorvastatin Calcium (Lipitor) 40 mg QHS PO Last administered on 03/31/17 22: 38; Admin Dose 40 MG; Start 03/28/17 at 21:00 Insulin Glargine (Lantus) 36 unit QHS SC Last administered on 03/31/17 23:03; Admin Dose 36 UNIT; Start 03/28/17 at 21:00 Losartan Potassium (Cozaar) 50 mg DAILY PO Last administered on 04/01/17 08:28 ; Admin Dose 50 MG; Start 03/29/17 at 09:00 Tamsulosin HCl (Flomax) 0.4 mg QPM PO Last administered on 03/31/17 22:37; Admin Dose 0.4 MG; Start 03/28/17 at 21:00 Docusate Sodium (Colace) 100 mg Q12H PRN PO CONSTIPATION; Start 03/28/17 at 18: 30 Magnesium Hydroxide (Milk Of Mag) 30 ml DAILY PRN PO CONSTIPATION; Start at 18:30 Bisacodyl (Dulcolax) 5 mg DAILY PRN PO CONSTIPATION; Start 03/28/17 at 18:30 Heparin Sodium (Porcine) (Heparin (5000 Units/0.5 ml)) 5,000 unit Q8 SC Last administered on 03/30/17 13:53; Admin Dose 5,000 UNIT; Start 03/28/17 at 22:00 ; Status Future Hold Miscellaneous Information 1 ea NOTE XX ; Start 03/28/17 at 19:30 Glucose (Glutose) 15 gm Q15M PRN PO DECREASED GLUCOSE; Start 03/28/17 at 19:30 Glucose (Glutose) 22.5 gm Q15M PRN PO DECREASED GLUCOSE; Start 03/28/17 at 19: 30 Dextrose (D50w Syringe) 25 ml Q15M PRN IV DECREASED GLUCOSE; Start 03/28/17 at 19:30 Dextrose (D50w Syringe) 50 ml Q15M PRN IV DECREASED GLUCOSE; Start 03/28/17 at 19:30 Glucagon (Glucagen) 1 mg Q15M PRN IM DECREASED GLUCOSE; Start 03/28/17 at 19:30 Glucose (Glutose) 15 gm Q15M PRN BUCCAL DECREASED GLUCOSE; Start 03/28/17 at 19 :30 Famotidine (Pepcid) 20 mg BID PO Last administered on 04/01/17t 08:27; Admin Dose 20 MG; Start 03/29/17 at 16:00 Acetaminophen (Tylenol Tab) 650 mg Q4H PRN PO NON-CARDIAC PAIN LEVEL (1-3); Start 03/31/17 at 11:30 Al Hydrox/Mg Hydrox/Simethicone (Mag-Al Plus) 30 ml Q4H PRN PO GASTROINTESTINAL UPSET; Start 03/31/17 at 11:30 Ondansetron HCl (Zofran Inj) 4 mg Q4H PRN IV NAUSEA AND/OR VOMITING; Start at 11:30 JULIANO PATEL MD Apr 01, 2017 14:23
--- NOTE | 2017-04-01 14:25 | PDOCDIS ---
Discharge Instructions CONDITION Patient Condition: Good HOME CARE INSTRUCTIONS: Special Diet: Carb-controlled ACTIVITY: Activity Restrictions: Slowly Increase Activity Rest between Activity Avoid heavy lifting Avoid Heavy Housework FOLLOW UP/APPOINTMENTS Appointments follow up with his own PMD through HMO insurance in 1-2 week. Follow up with [facility] in 1-2 week after discharge JULIANO PATEL MD Apr 01, 2017 14:25
[2017-04-01] MEDS ORDERED: ISOS10TA2 PO (14:26)
[2017-04-01] MEDS ORDERED: NIT4 SL (14:26)
[2017-04-01] MEDS ORDERED: METO-448 PO (14:26)
== END 2017-04-01 15:38 | disposition home or self-care (01) | DRG 287 ==
LOC: E/R 12:18 → MS4 14:41 → OBSVTOIN 03-30 14:22
PROVIDERS: ADMIT Family Medicine; ATTEND Family Medicine
PROC: B2051ZZ Plain Radiography of Left Heart using Low Osmolar Contrast (ICD-10-PCS; 2017-03-31)
PROC: 4A023N7 Measurement of Cardiac Sampling and Pressure, Left Heart, Percutaneous Approach (ICD-10-PCS; principal; 2017-03-31 09:00)
DX: I25.110 Atherosclerotic heart disease of native coronary artery with unstable angina pectoris (principal); I69.954 Hemiplegia and hemiparesis following unspecified cerebrovascular disease affecting left non-dominant side; I10 Essential (primary) hypertension; Z79.4 Long term (current) use of insulin; Z79.82 Long term (current) use of aspirin; F17.200 Nicotine dependence, unspecified, uncomplicated; E11.9 Type 2 diabetes mellitus without complications
CPT/HCPCS: 36415; 71010; 80048; 80053; 80061; 82962; 83036; 83735; 83880; 84100; 84439; 84443; 84484; 85025; 85610; 85730; 93005; 93458; 94644; G0378; C1769; C1887; J1644; J1815; J2250; J3010; J7030; Q9967

== ENCOUNTER 2017-04-28 12:47 | Inpatient (IN) | payer OTHER ==
[~2017-04-28] VITALS: Ht 167.6 cm; Wt 104.0 kg
[~2017-04-28 12:47] MED LIST changes: +INSU100C SQ; +ISOS10TA2 PO; +METF500T4 PO; +METO-448 PO; +NIT4 SL; -NOVO3I SC
[2017-04-28] MEDS ORDERED: SOD CHLORIDE 0.9% 500 ML IV STA (13:55)
[2017-04-28] MEDS ORDERED: ONDANSETRON 4 MG INJ IV STA (13:55)
--- NOTE | 2017-04-28 13:58 | ERA ---
ER Documentation Chief Complaint Date/Time DATE: 04/28/17 TIME: 13:57 Chief Complaint SOB SINCE YESTERDAY, HPI 61-year-old man complains of dizziness all morning and then had a syncopal episode on his bed. The episode was witnessed, he had no tonic-clonic seizure activity. Patient states he feels nauseous, no diarrhea, no chest pain or shortness of breath, no cough. Patient is recently status post knee surgery. Patient denies fevers or chills, no discharge from the surgical site, no skin redness around the knee. ROS All systems reviewed and are negative except as per history of present illness. Medications Home Meds Active Scripts Nitroglycerin* (Nitrostat*) 0.4 Mg Tab.subl, 1 TAB SL Q5M Y for ANGINA, #30 Prov:JULIANO PATEL MD 04/01/17 Metoprolol Tartrate* (Lopressor*) 25 Mg Tab, 25 MG PO BID, #120 TAB Prov:JULIANO PATEL MD 04/01/17 Isosorbide Dinitrate* (Isordil*) 10 Mg Tablet, 10 MG PO TID, #180 TAB Prov:JULIANO PATEL MD 04/01/17 Atorvastatin* (Atorvastatin*) 40 Mg Tablet, 40 MG PO QHS for 30 Days, #30 TAB Prov:ONI RANGEL NP 11/26/16 Tamsulosin Hcl* (Flomax*) 0.4 Mg Cap.er.24h, 0.4 MG PO QPM, #30 CAP Prov:SANTIAGO PORTILLO MD 07/16/16 Reported Medications Metformin* (Glucophage*) 500 Mg Tab, 500 MG PO BID, #30 TAB 03/28/17 Insulin Lispro (Humalog) 100 Unit/1 Ml Cartridge, 12 UNIT SQ TID 03/28/17 Insulin Glargine* (Lantus*) 100 Unit/Ml Soln, 36 UNIT SC QHS, #1 VIAL 03/28/17 Losartan Potassium* (Losartan Potassium*) 50 Mg Tablet, 50 MG PO DAILY, TAB 07/16/16 Amlodipine Besylate* (Norvasc*) 5 Mg Tablet, 5 MG PO DAILY, TAB 07/16/16 Aspirin* (Aspirin* EC) 81 Mg Tablet.dr, 81 MG PO DAILY, TAB 06/03/16 Allergies Allergies: Coded Allergies: morphine (Verified Adverse Reaction, Intermediate, nuasea,vomiting, ) PMhx/Soc Angina pectoris, hypertension, dyslipidemia, tobacco smoke History of Surgery: Yes (right knee surgery 1975 and 1977) Anesthesia Reaction: No Hx Neurological Disorder: No Hx Respiratory Disorders: Yes (SOB on exertion ) Hx Cardiac Disorders: No Hx Psychiatric Problems: No Hx Miscellaneous Medical Probl: No Hx Alcohol Use: No Hx Substance Use: No Hx Tobacco Use: Yes FmHx Family History: No diabetes Physical Exam Vitals Vital Signs Date Time Temp Pulse Resp B/P Pulse Ox O2 Delivery O2 Flow Rate FiO2 04/28/17 12:54 97.8 84 18 142/84 99 Physical Exam GENERAL: Well-developed, well-nourished, dehydrated HEENT: Dry mucous membranes, pink conjunctiva, no cervical spine tenderness or step-off deformities, no goiter, no jaundice or icterus, extraocular movements intact without pain. No submandibular induration, and no pharyngeal erythema NEURO: Alert and oriented 3, cranial nerves II through XII intact bilaterally, pupils equal round reactive to light, no focal deficits or facial asymmetry, sensation intact distally Strength 5/5 in upper and lower extremities bilaterally CARDIAC: Regular rate and rhythm, no murmurs rubs or gallops LUNGS: Clear bilaterally no wheezing crackles or stridor ABDOMEN: Soft nontender, no guarding, no rigidity, no rebound, no psoas sign no obturator sign. Normoactive bowel sounds SKIN: Warm and dry to touch, no abrasions, contusions, or hematomas, no lacerations, no ecchymosis, no target lesions, and without ulcers EXTREMITIES: 1+ pitting edema in the right lower extremity, surgical scar over the anterior right knee without wound dehiscence or discharge PSYCH: Normal affect without agitation or irritability Result Diagram: 04/28/17 1437 04/28/17 1437 Results 24 hrs Laboratory Tests Test 04/28/17 14:37 White Blood Count 14.410^3/ul Red Blood Count 4.5610^6/ul Hemoglobin 13.2g/dl Hematocrit 40.2% Mean Corpuscular Volume 88.2fl Mean Corpuscular Hemoglobin 28.9pg Mean Corpuscular Hemoglobin Concent 32.8g/dl Red Cell Distribution Width 13.9% Platelet Count 66178^3/UL Mean Platelet Volume 9.5fl Neutrophils % 72.2% Lymphocytes % 19.7% Monocytes % 4.4% Eosinophils % 2.9% Basophils % 0.3% Nucleated Red Blood Cells % 0.0/100WBC Neutrophils # 10.410^3/ul Lymphocytes # 2.810^3/ul Monocytes # 0.610^3/ul Eosinophils # 0.410^3/ul Basophils # 0.110^3/ul Nucleated Red Blood Cells # 0.010^3/ul Sodium Level 132mmol/L Potassium Level 4.0mmol/L Chloride Level 101mmol/L Carbon Dioxide Level 24mmol/L Anion Gap 11 Blood Urea Nitrogen 20mg/dl Creatinine 0.87mg/dl Glucose Level 130mg/dl Calcium Level 9.8mg/dl Total Bilirubin 0.2mg/dl Direct Bilirubin 0.00mg/dl Indirect Bilirubin 0.2mg/dl Aspartate Amino Transf (AST/SGOT) 15IU/L Alanine Aminotransferase (ALT/SGPT) 34IU/L Alkaline Phosphatase 149IU/L Troponin I < 0.012ng/ml Total Protein 8.0g/dl Albumin 4.7g/dl Globulin 3.30g/dl Albumin/Globulin Ratio 1.42 Lipase 56U/L Current Medications Medications (Trade) Dose Ordered Sig/Tawnya Route PRN Reason Start Time Stop Time Status Last Admin Dose Admin Sodium Chloride (NS) 500 ml @ 500 mls/hr Q1H STAT IV 04/28/17 13:55 04/28/17 14:54 DC 04/28/17 13:55 Ondansetron HCl (Zofran Inj) 4 mg ONCE STAT IV 04/28/17 13:55 04/28/17 14:01 DC 04/28/17 13:55 Procedures/[facility] IV line was established patient was placed on cardiac cath lab technologist rhythm strip revealed a sinus rhythm at about 70 beats with upright P and T waves. Patient was afebrile. I administered 1 L normal saline intravenously and Zofran 4 mg IV. EKG performed, read by me revealed a normal sinus rhythm at 60 bpm, normal axis , right ventricular conduction delay with a QRS duration of 140 ms, no concerning ST elevations or depressions noted. One view chest x-ray performed, read by me there is atelectatic changes on the right, no acute infiltrates, no pneumothorax. CBC and electrolytes are normal, liver function tests normal, troponin negative. CT scan of the brain was performed that was negative for acute bleed mass or shift. Color Doppler ultrasound of the right lower extremity was ordered results are pending I will follow-up. Rule out DVT. Patient will be admitted to telemetry setting for continued medical management. Patient's vital signs are normal at this time, he has no complaints of shortness of breath, oxygen saturation 100%. Departure Diagnosis: Primary Impression: Syncope Qualified Code: R55 - Syncope, unspecified syncope type Additional Impression: Dehydration Condition: ZULEMA Hernandez MD Apr 28, 2017 13:58
--- NOTE | 2017-04-28 14:15 | RADRPT ---
PROCEDURE: XR Chest. CLINICAL INDICATION: 61-year-old male with suspected pneumonia. Rule out infiltrate. TECHNIQUE: Single frontal view of the chest was obtained. COMPARISON: Chest x-ray 01/10/2017 04:32 p.m. FINDINGS: The soft tissues are generous. The right diaphragm is elevated with plate-like atelectasis near the right costophrenic angle. There are degenerative osteophytes in the thoracic spine. There are old healed fracture deformities of the posterior left fourth, fifth and sixth ribs. The heart, cardiom ediastinal silhouette and hilar structures are normal. The pulmonary vasculature is normal. There i s a left-sided aorta. The remaining lungs are clear. The costophrenic angles are normal. IMPRESSION: 1. Suboptimal inspiration effort with plate-like atelectasis in the right lower lobe and elevation o f the right diaphragm. 2. There are old healed left-sided posterior rib fractures. 3. Spondylosis of the thoracic spine. 4. No acute infiltrate is identified. RPTAT:AAJJ Physician Jorge Date Time Electronically viewed and signed by Physician Jorge on 04/28/2017 14:15 LATIA/
--- NOTE | 2017-04-28 14:20 | RADRPT ---
PROCEDURE: CT Brain without contrast. CLINICAL INDICATION: Weakness. Nausea.. TECHNIQUE: A CT of the brain was performed on a multi-slice CT scanner utilizing axial sections fr om the skull base through the vertex without contrast. Coronal and sagittal reconstructed images wer e provided. One or more of the following does reduction techniques were used: Automated exposure c ontrol; adjustment of the mA and/or kV according to patient size; use of the aorta of reconstruction technique. Images were reviewed on a high-resolution PACS workstation. Exam DLP equals 720.23 mGy- cm. The CTDI equals 42.56 mGy COMPARISON: CT brain 01/10/2017 FINDINGS: Mild diffuse cerebral and cerebellar atrophy is present. There is no evidence of intracranial hemor rhage, mass effect or midline shift. No abnormal intra-axial or extra-axial fluid collections are s een. There are deep white matter patchy hypodensities which are nonspecific, but typically seen in small vessel chronic ischemic disease. The density of the brain is otherwise normal and the faith/w trina matter differentiation is well preserved. The osseous structures and visualized paranasal sinu ses are unremarkable. Vascular calcifications are identified. IMPRESSION: 1. No CT evidence of acute intracranial pathology. 2. Mild diffuse atrophy and deep white matter microangiopathic ischemic changes. 3. Atherosclerotic calcifications of the intracranial carotid arteries. RPTAT: KK .Dannie Roa MD, MD Date Time Electronically viewed and signed by .Dannie Roa MD, MD on 04/28/2017 14:19 .B/
[2017-04-28 14:59] LABS: ADD SCAN DIFF NO
[2017-04-28 15:05] LABS: BASOPHIL # 0.1 10^3/ul (0.0-0.1); BASOPHILS % 0.3 % (0.0-2.0); EOSINOPHILS # 0.4 10^3/ul (0.0-0.5); EOSINOPHILS % 2.9 % (0.0-7.0); HEMATOCRIT 40.2 % (42.0-52.0); HEMOGLOBIN 13.2 g/dl (14.0-18.0); LYMPHOCYTES # 2.8 10^3/ul (0.8-2.9); LYMPHOCYTES % 19.7 % (15.0-51.0); MEAN CORPUSCULAR HEMOGLOBIN 28.9 pg (29.0-33.0); MEAN CORPUSCULAR HGB CONC 32.8 g/dl (32.0-37.0); MEAN CORPUSCULAR VOLUME 88.2 fl (82.0-101.0); MEAN PLATELET VOLUME 9.5 fl (7.4-10.4); MONOCYTE # 0.6 10^3/ul (0.3-0.9); MONOCYTES % 4.4 % (0.0-11.0); NEUTROPHIL # 10.4 10^3/ul (1.6-7.5); NEUTROPHILS % 72.2 % (39.0-77.0); PLATELET COUNT 542 10^3/UL (140-415); RED BLOOD COUNT 4.56 10^6/ul (4.70-6.10); RED CELL DISTRIBUTION WIDTH 13.9 % (11.5-14.5); WHITE BLOOD COUNT 14.4 10^3/ul (4.8-10.8)
[2017-04-28 15:18] LABS: ALANINE AMINOTRANSFERASE 34 IU/L (13-69); ALBUMIN 4.7 g/dl (3.3-4.9); ALBUMIN/GLOBULIN RATIO 1.42; ALKALINE PHOSPHATASE 149 IU/L (42-121); ANION GAP 11 (8-16); ASPARTATE AMINO TRANSFERASE 15 IU/L (15-46); BILIRUBIN,INDIRECT 0.2 mg/dl (0-1.1); BILIRUBIN,TOTAL 0.2 mg/dl (0.2-1.3); BLOOD UREA NITROGEN 20 mg/dl (7-20); CALCIUM 9.8 mg/dl (8.4-10.2); CARBON DIOXIDE 24 mmol/L (21-31); CHLORIDE 101 mmol/L (97-110); CREATININE 0.87 mg/dl (0.61-1.24); GLUCOSE 130 mg/dl (70-220); SODIUM 132 mmol/L (135-144)
[2017-04-28 15:32] LABS: TROPONIN-I < 0.012 ng/ml (0.00-0.12)
--- NOTE | 2017-04-28 15:53 | RADRPT ---
PROCEDURE: US Lower extremity Venous. CLINICAL INDICATION: Pain and swelling TECHNIQUE: Multiple sonographic images of the bilateral lower extremity deep venous system was obt ained utilizing grayscale, color-flow, compressive sonography and doppler imaging with augmentation. The images were reviewed on a PACS workstation. COMPARISON: None FINDINGS: There is normal compressibility and flow within the bilateral common femoral, deep femoral, superfic ial femoral and popliteal veins. Normal respiratory variation and augmentation is seen. There is normal color flow and compressibility of bilateral posterior tibial and peroneal veins IMPRESSION: No sonographic evidence for bilateral lower extremity deep venous thrombosis. RPTAT: HH .Naseem Benitez MD, MD Date Time Electronically viewed and signed by .Naseem Benitez MD, on 04/28/2017 15:53 .W/
--- NOTE | 2017-04-28 16:04 | HP ---
Date/Time of Note Date/Time of Note DATE: 04/28/17 TIME: 16:04 Assessment/Plan VTE Prophylaxis VTE Prophylaxis Intervention: SCD's Assessment/Plan Assessment/Plan 61 yo M with pmhx DM2, HTN, HL, recent R knee replacement 2 weeks ago presents with several days of lightheadedness and a syncopal episode yesterday. Etio unclear and differential is broad. D/dx includes but is not limited to: structural heart disease, PE, dehydration, orthostatic hypotension from medications or autonomic dysfunction, arrhythmia. Given protracted prodrome of lightheadedness/presyncope suspect vasovagal etio ( additionally pt's [facility] Syncope Symptom score of -2 is consistent with vasovagal etio). PLAN tele monitoring TTE check d dimer. if + will obtain CT PE protocol to eval for PE given recent knee surgery (LE duplex neg for DVT) hold home imdur and ccb, cont arb and bb cont insulin + SSI cont asa check troponin x 1 consider further testing pending above results carb controlled diet DVT prophx HPI/ROS Admit Date/Time Admit Date/Time Hx of Present Illness 61 yo M with pmhx HTN, HL, DM2, obesity sp R knee replacement 2 weeks ago presents for evaluation of syncope. Pt reports that he'd been feeling lightheaded for the past 2-3 days, worse with position changes. Yesterday had a routine post op ortho appointment. Was told knee is healing well but after his appointment felt very very lightheaded on the way home, started feeling presyncopal/as though he was blacking out on the way home, then passed out after taking a few steps into his home. Awoke on a daybed in his living room. Still felt lightheaded this morning so family and friends advised he come in for further eval. No fever. +chills. +occ SOB over this episode. No chest pain. No cough. No dysuria. No increase in knee pain or swelling. No abd pain. No diarrhea. Reports adequate PO. No recent medication changes. +nausea, no vomiting. No report of tremors/shaking/seizure-like activity. PMH/Family/Social Past Medical History as per HPI Past Surgical History as per HPI Social History lives in the community Smoking Status: Current every day smoker Exam/Review of Systems Vital Signs Vitals Vital Signs Date Time Temp Pulse Resp B/P Pulse Ox O2 Delivery O2 Flow Rate FiO2 04/28/17 12:54 97.8 84 18 142/84 99 Exam Exam laying flat in bed, nad MMM EOMI CN 2-12 grossly intact, moves exts freely rrr no mrg lungs clear abd soft no rashes no le edema R knee surgical site c/d/i. minimal joint swelling. no pain with AROM of R knee labs and imaging reviewed Labs Result Diagram: 04/28/17 1437 04/28/17 1437 CHAPARRO ARREGUIN MD Apr 28, 2017 16:04
[2017-04-28 16:17] LABS: ADD UMIC NO; UR ASCORBIC ACID NEGATIVE (NEGATIVE); UR BILIRUBIN (Dip) NEGATIVE (NEGATIVE); UR BLOOD (Dip) NEGATIVE (NEGATIVE); UR CLARITY SLIGHTLY CLOUDY (CLEAR); UR COLOR YELLOW (YELLOW); UR GLUCOSE (Dip) NEGATIVE (NEGATIVE); UR KETONES (Dip) NEGATIVE (NEGATIVE); UR LEUKOCYTE ESTERASE (Dip) NEGATIVE Leu/ul (NEGATIVE); UR NITRITE (Dip) NEGATIVE (NEGATIVE); UR RBC 0 /HPF (0-5); UR SPECIFIC GRAVITY (Dip) 1.019 (1.003-1.030); UR TOTAL PROTEIN (Dip) NEGATIVE (NEGATIVE); UR UROBILINOGEN (Dip) NEGATIVE (NEGATIVE)
[2017-04-28 16:34] LABS: BARBITURATES Negative (NEGATIVE); BENZODIAZEPINES Negative (NEGATIVE); CANNABINOIDS Negative (NEGATIVE); COCAINE Negative (NEGATIVE); OPIATES Positive (NEGATIVE)
[2017-04-28] MEDS ORDERED: ONDANSETRON 4 MG TAB PO PRN (17:30)
[2017-04-28] MEDS ORDERED: MAGNESIUM HYDROXIDE 30ML CUP PO PRN (17:30)
[2017-04-28] MEDS ORDERED: HYPOGLYCEMIA PROTOCOL when Glucose is <70 mg/dL or symptomatic <90 mg/dL. XX ONE (17:30)
[2017-04-28] MEDS ORDERED: NACL 0.9% 3 ML SYG IV SCH (17:30)
[2017-04-28] MEDS ORDERED: BISACODYL (EC) 5 MG TAB PO PRN (17:30)
[2017-04-28] MEDS ORDERED: DOCUSATE SODIUM 100 MG CAP PO PRN (17:30)
[2017-04-28] MEDS ORDERED: ACETAMINOPHEN 325 MG TAB PO PRN (17:30)
[2017-04-28] MEDS ORDERED: ONDANSETRON 4 MG INJ IV PRN (17:30)
[2017-04-28] MEDS ORDERED: DEXTROSE 50% 50 ML SYRINGE IV PRN ×2 (18:00)
[2017-04-28] MEDS: INSULIN ASPART [NOVOLOG] 3 ML PEN SC SCH ×3 (18:00→21:00)
[2017-04-28] MEDS ORDERED: GLUCOSE GEL 15 GRAM TUBE BUCCAL PRN (18:00)
[2017-04-28] MEDS ORDERED: GLUCOSE GEL 15 GRAM TUBE PO PRN ×2 (18:00)
[2017-04-28] MEDS ORDERED: GLUCAGON 1 MG INJ IM PRN (18:00)
[2017-04-28 19:03] LABS: CREATINE KINASE 49 IU/L (23-200)
[2017-04-28 19:04] LABS: D-DIMER 3201.77 ng/ml (<460)
[2017-04-28 19:23] LABS: CK-MB 0.86 ng/ml (0.0-2.4); TROPONIN-I < 0.012 ng/ml (0.00-0.12)
[2017-04-28] MEDS: HYDROCODONE/APAP (5/325) TAB PO PRN ×2 (19:35→20:34)
[2017-04-28] MEDS: METOPROLOL 25 MG TAB PO SCH (21:00)
[2017-04-28] MEDS: ACCU-CHEK XX SCH (21:04)
[2017-04-28] MEDS: ATORVASTATIN 40 MG TAB PO SCH (21:08)
[2017-04-28] MEDS: INSULIN GLARGINE [LANtus] 3 ML PEN SC SCH (21:19)
[2017-04-28 23:39] VITALS: Ht 167.6 cm; Wt 104.0 kg
[2017-04-29] VITALS (13 sets, daily range): BP systolic 100–145; BP diastolic 56–87; PULSE 61–66; RESP 16–19
[2017-04-29] MEDS: ACCU-CHEK XX SCH ×4 (02:00→20:05)
[2017-04-29] MEDS: HYDROCODONE/APAP (10/325) TAB PO PRN ×3 (03:47→22:05)
[2017-04-29] MEDS: INSULIN ASPART [NOVOLOG] 3 ML PEN SC SCH ×7 (08:00→21:00)
[2017-04-29 08:36] LABS: ADD SCAN DIFF NO
[2017-04-29] MEDS: ASPIRIN (EC) 81 MG TAB PO SCH (08:41)
[2017-04-29] MEDS: LOSARTAN 50 MG TAB PO SCH (08:42)
[2017-04-29] MEDS: METOPROLOL 25 MG TAB PO SCH ×2 (08:43→22:06)
[2017-04-29 08:47] LABS: BASOPHILS % 0.3 % (0.0-2.0); EOSINOPHILS # 0.2 10^3/ul (0.0-0.5); EOSINOPHILS % 1.9 % (0.0-7.0); HEMATOCRIT 40.2 % (42.0-52.0); HEMOGLOBIN 12.7 g/dl (14.0-18.0); LYMPHOCYTES # 3.9 10^3/ul (0.8-2.9); LYMPHOCYTES % 31.8 % (15.0-51.0); MEAN CORPUSCULAR HEMOGLOBIN 28.1 pg (29.0-33.0); MEAN CORPUSCULAR HGB CONC 31.6 g/dl (32.0-37.0); MEAN CORPUSCULAR VOLUME 88.9 fl (82.0-101.0); MEAN PLATELET VOLUME 9.8 fl (7.4-10.4); MONOCYTE # 0.5 10^3/ul (0.3-0.9); MONOCYTES % 4.3 % (0.0-11.0); NEUTROPHIL # 7.5 10^3/ul (1.6-7.5); NEUTROPHILS % 61.1 % (39.0-77.0); PLATELET COUNT 501 10^3/UL (140-415); RED BLOOD COUNT 4.52 10^6/ul (4.70-6.10); RED CELL DISTRIBUTION WIDTH 14.2 % (11.5-14.5); WHITE BLOOD COUNT 12.2 10^3/ul (4.8-10.8)
[2017-04-29 09:17] LABS: ALBUMIN 4.2 g/dl (3.3-4.9); ALBUMIN/GLOBULIN RATIO 1.4; BILIRUBIN,INDIRECT 0.2 mg/dl (0-1.1); BILIRUBIN,TOTAL 0.2 mg/dl (0.2-1.3); CALCIUM 9.5 mg/dl (8.4-10.2); CREATININE 0.82 mg/dl (0.61-1.24); POTASSIUM 3.7 mmol/L (3.5-5.1); TOTAL PROTEIN 7.2 g/dl (6.1-8.1)
--- NOTE | 2017-04-29 13:38 | PN ---
Date/Time of Note Date/Time of Note DATE: 04/29/17 TIME: 13:38 Assessment/Plan VTE Prophylaxis VTE Prophylaxis Intervention: SCD's Lines/Catheters IV Catheter Type (from Nrs): Saline Lock Assessment/Plan Assessment/Plan 61 yo M with pmhx DM2, HTN, HL, recent R knee replacement 2 weeks ago presents with several days of lightheadedness and a syncopal episode 7.12. Suspect vasovagal though prudent to eval for other etios. troponin neg. PLAN tele monitoring TTE CT chest given + dimer and recent surgery hold home imdur and ccb, cont arb and bb cont insulin + SSI cont asa carb controlled diet DVT prophx Subjective 24 Hr Interval Summary Free Text/Dictation Feels back to baseline though hasn't yet gotten out of bed Exam/Review of Systems Vital Signs Vitals Vital Signs Date Time Temp Pulse Resp B/P Pulse Ox O2 Delivery O2 Flow Rate FiO2 04/29/17 12:16 65 04/29/17 11:42 97.9 17 109/64 97 04/28/17 21:48 Room Air Intake and Output 04/28/17 04/28/17 04/29/17 15:00 23:00 07:00 Intake Total 500 ml Output Total 450 ml Balance 50 ml Exam nad laying in bed no mrg lungs clear abd soft no rashes labs reviewed Results Result Diagram: 04/29/17 0741 04/29/17 0741 Results 24 hrs Laboratory Tests Test 04/28/17 14:37 04/28/17 15:15 04/28/17 18:10 04/28/17 18:33 White Blood Count 14.4 #H Red Blood Count 4.56 L Hemoglobin 13.2 L Hematocrit 40.2 L Mean Corpuscular Volume 88.2 Mean Corpuscular Hemoglobin 28.9 L Mean Corpuscular Hemoglobin Concent 32.8 Red Cell Distribution Width 13.9 Platelet Count 542 #H Mean Platelet Volume 9.5 Neutrophils % 72.2 Lymphocytes % 19.7 Monocytes % 4.4 Eosinophils % 2.9 Basophils % 0.3 Nucleated Red Blood Cells % 0.0 Neutrophils # 10.4 H Lymphocytes # 2.8 Monocytes # 0.6 Eosinophils # 0.4 Basophils # 0.1 Nucleated Red Blood Cells # 0.0 Sodium Level 132 L Potassium Level 4.0 Chloride Level 101 Carbon Dioxide Level 24 Anion Gap 11 Blood Urea Nitrogen 20 Creatinine 0.87 Glucose Level 130 Calcium Level 9.8 Total Bilirubin 0.2 Direct Bilirubin 0.00 Indirect Bilirubin 0.2 Aspartate Amino Transf (AST/SGOT) 15 Alanine Aminotransferase (ALT/SGPT) 34 Alkaline Phosphatase 149 H Troponin I < 0.012 < 0.012 Total Protein 8.0 Albumin 4.7 Globulin 3.30 H Albumin/Globulin Ratio 1.42 Lipase 56 Urine Color YELLOW Urine Clarity SLIGHTLY CLOUDY A Urine pH 5.0 Urine Specific [place] 1.019 Urine Ketones NEGATIVE Urine Nitrite NEGATIVE Urine Bilirubin NEGATIVE Urine Urobilinogen NEGATIVE Urine Leukocyte Esterase NEGATIVE Urine Microscopic RBC 0 Urine Microscopic WBC 0 Urine Hemoglobin NEGATIVE Urine Glucose NEGATIVE Urine Total Protein NEGATIVE Urine Opiates Screen Positive Urine Barbiturates Negative Urine Amphetamines Screen Negative Urine Benzodiazepines Screen Negative Urine Cocaine Screen Negative Urine Cannabinoids Negative D-Dimer 3201.77 H D-Dimer Comment Hemoglobin A1c 7.5 H Creatine Kinase 49 Creatine Kinase Index 1.8 Creatinine Kinase MB (Mass) 0.86 B-Type Natriuretic Peptide 104 Thyroid Stimulating Hormone (TSH) 0.775 Bedside Glucose 127 Test 04/28/17 21:02 04/29/17 07:41 04/29/17 08:40 04/29/17 10:35 Bedside Glucose 141 130 117 White Blood Count 12.2 H Red Blood Count 4.52 L Hemoglobin 12.7 L Hematocrit 40.2 L Mean Corpuscular Volume 88.9 Mean Corpuscular Hemoglobin 28.1 L Mean Corpuscular Hemoglobin Concent 31.6 L Red Cell Distribution Width 14.2 Platelet Count 501 H Mean Platelet Volume 9.8 Neutrophils % 61.1 Lymphocytes % 31.8 Monocytes % 4.3 Eosinophils % 1.9 Basophils % 0.3 Nucleated Red Blood Cells % 0.0 Neutrophils # 7.5 Lymphocytes # 3.9 H Monocytes # 0.5 Eosinophils # 0.2 Basophils # 0.0 Nucleated Red Blood Cells # 0.0 Sodium Level 132 L Potassium Level 3.7 Chloride Level 102 Carbon Dioxide Level 26 Anion Gap 8 Blood Urea Nitrogen 19 Creatinine 0.82 Glucose Level 104 Calcium Level 9.5 Total Bilirubin 0.2 Direct Bilirubin 0.00 Indirect Bilirubin 0.2 Aspartate Amino Transf (AST/SGOT) 18 Alanine Aminotransferase (ALT/SGPT) 30 Alkaline Phosphatase 123 H Total Protein 7.2 Albumin 4.2 Globulin 3.00 Albumin/Globulin Ratio 1.40 Test 04/29/17 11:52 Bedside Glucose 104 Medications Medications Current Medications Aspirin (Halfprin) 81 mg DAILY PO Last administered on 04/29/17 08:41; Admin Dose 81 MG; Start 04/29/17 at 09:00 Atorvastatin Calcium (Lipitor) 40 mg QHS PO Last administered on 04/28/17 21: 08; Admin Dose 40 MG; Start 04/28/17 at 21:00 Insulin Glargine (Lantus) 36 unit QHS SC Last administered on 04/28/17 21:19; Admin Dose 36 UNIT; Start 04/28/17 at 21:00 Losartan Potassium (Cozaar) 50 mg DAILY PO Last administered on 04/29/17 08:42 ; Admin Dose 50 MG; Start 04/29/17 at 09:00 Metoprolol Tartrate (Lopressor) 25 mg BID PO Last administered on 04/29/17 08: 43; Admin Dose 25 MG; Start 04/28/17 at 21:00 Diagnostic Test (Pha) (Accu-Chek) 1 ea 02 XX ; Start 04/29/17 at 02:00 Ondansetron HCl (Zofran Tab) 4 mg Q6H PRN PO NAUSEA AND/OR VOMITING; Start at 17:30 Ondansetron HCl (Zofran Inj) 4 mg Q6H PRN IV NAUSEA AND/OR VOMITING; Start at 17:30 Acetaminophen (Tylenol Tab) 650 mg Q6H PRN PO PAIN LEVEL 1-3 OR FEVER; Start at 17:30 Docusate Sodium (Colace) 100 mg Q12H PRN PO CONSTIPATION; Start 04/28/17 at 17: 30 Magnesium Hydroxide (Milk Of Mag) 30 ml DAILY PRN PO CONSTIPATION; Start at 17:30 Bisacodyl (Dulcolax) 5 mg DAILY PRN PO CONSTIPATION; Start 04/28/17 at 17:30 Miscellaneous Information 1 ea NOTE XX ; Start 04/28/17 at 18:00 Glucose (Glutose) 15 gm Q15M PRN PO DECREASED GLUCOSE; Start 04/28/17 at 18:00 Glucose (Glutose) 22.5 gm Q15M PRN PO DECREASED GLUCOSE; Start 04/28/17 at 18: 00 Dextrose (D50w Syringe) 25 ml Q15M PRN IV DECREASED GLUCOSE; Start 04/28/17 at 18:00 Dextrose (D50w Syringe) 50 ml Q15M PRN IV DECREASED GLUCOSE; Start 04/28/17 at 18:00 Glucagon (Glucagen) 1 mg Q15M PRN IM DECREASED GLUCOSE; Start 04/28/17 at 18:00 Glucose (Glutose) 15 gm Q15M PRN BUCCAL DECREASED GLUCOSE; Start 04/28/17 at 18 :00 Acetaminophen/ Hydrocodone Bitart ([place] (10/325)) 1 tab Q6 PRN PO PAIN LEVEL 7 -10 Last administered on 04/29/17t 10:36; Admin Dose 1 TAB; Start 04/28/17 at 21 :00 CHAPARRO ARREGUIN MD Apr 29, 2017 13:38
--- NOTE | 2017-04-29 18:35 | RADRPT ---
Echocardiogram Report Patient Name: ANA MARIA SANDERS Gender: Male Date: 1955 Study Date: 29-Apr-2017 Specimen Accessioner: Lita Winn [facility] Location: [id number] Ref. Physician: CHAPARRO ARREGUIN Quality: Good Procedures: Transthoracic echocardiogram with complete 2D, M-Mode, and Doppler examination. Indications: Syncope. 2D/M Mode Doppler Measurement Value Normal Ranges Measurement Value Normal Ranges AoR Diam MM 1.5 cm [place] Vmax 4.3 cm2 LVIDd 2D 5.0 3.5 - 5.6 cm [place] VTI 4.3 cm2 LVIDs 2D 2.1 2.1 - 4.1 cm AV Mean John 0.8 m/sec LVPWd 2D 1.2 0.6 - 1.1 cm AV Mean PG 3.0 mmHg IVSd 2D 1.2 0.6 - 1.1 cm AV Peak John 1.1 m/sec AoR Diam 2D 4.3 2.0 - 3.7 cm AV VTI 22.1 cm EDV 2D 116.5 cm3 LVOT Peak John 0.9 m/sec ESV 2D 9.6 cm3 LVOT Peak PG 3.0 mmHg LA Dimen 2D 3.8 2.3 - 4.0 cm MV E Peak John 0.6 m/sec LVOT Diam 2.7 cm MV A Peak John 0.7 m/sec MV E/A 0.8 MV Decel Time 274 msec MV Decel [place] 2 MV E/A 0.8 TR Peak John 2.4 m/sec TR Peak PG 26.6 mmHg RVSP 34.6 mmHg Findings Left Ventricle: Normal left ventricular systolic function. Normal left ventricular cavity size. Normal left ventricular wall thickness. Ejection fraction is visually estimated at 55 %. No left ventricular thrombus visualized. Tissue Doppler/Mitral Doppler indices are within normal limits. Right Ventricle: Normal right ventricular size. Normal right ventricular systolic function. Left Atrium: The left atrium is normal in size. Right Atrium: The right atrium is normal in size. Atrial Septum: Normal atrial septum. Mitral Valve: Mitral valve leaflets appear mildly thickened. Mild mitral annular calcification. Trace mitral regurgitation. Aortic Valve: No significant aortic stenosis or insufficiency. Normal trileaflet aortic valve structure. Tricuspid Valve: Normal appearance of the tricuspid valve. Estimated peak PA systolic pressure 34 mmHg. No evidence of tricuspid regurgitation. Pulmonic Valve: Normal pulmonic valve appearance. Pulmonic valve not well visualized. Pericardium: Normal pericardium with no significant pericardial effusion. Aorta: Normal aortic root. IVC: Normal size and normal respiratory collapse consistent with normal right atrial pressure. Pulmonary Artery: Normal pulmonary artery size. Conclusions Normal left ventricular systolic function. Normal left ventricular cavity size. Normal left ventricular wall thickness. Ejection fraction is visually estimated at 55 %. No left ventricular thrombus visualized. Tissue Doppler/Mitral Doppler indices are within normal limits. No significant valvular stenosis or regurgitation seen. Estimated peak PA systolic pressure 34 mmHg based on RA pressure of 3 mmHg. Electronically Signed By: Elio Infante 29-Apr-2017 18:34:29 -0700 Patient Name: ANA MARIA SANDERS Study Date: 29-Apr-2017 [id number]
[2017-04-29] MEDS: ATORVASTATIN 40 MG TAB PO SCH (22:06)
[2017-04-29] MEDS ORDERED: IOHEXOL 100 ML ONE (22:09)
[2017-04-29] MEDS ORDERED: SOD CHLORIDE 0.9% 100 ML ONE (22:09)
[2017-04-29] MEDS: INSULIN GLARGINE [LANtus] 3 ML PEN SC SCH (22:11)
--- NOTE | 2017-04-29 22:49 | RADRPT ---
PROCEDURE: CT Pulmonary Angiogram. CLINICAL INDICATION: Chest pain and shortness of breath. TECHNIQUE: CT pulmonary angiogram and a CT scan of the chest with contrast was performed. The pat ient was scanned following the uncomplicated intravenous administration of 125 cc of Omnipaque-350 i ntravenous contrast. 2-D coronal reformatted images were obtained from the axial source images. In addition, 3-D post processing was performed. Total exam DLP is 812.05 mGy-cm. CTDIvol is 33.80 mG y. One or more of the following dose reduction techniques were used: Automated exposure control, ad justment of the mA and/or kV according to patient size, use of iterative reconstruction technique. COMPARISON: None available. FINDINGS: The pulmonary arteries are normal with no filling defect or lack of enhancement to suggest pulmonary artery embolism. The lungs are clear. There is no pulmonary airspace or interstitial disease. There is no pulmonary nodule or mass lesion. There is no pneumothorax. There is no mediastinal or hilar lymphadenopathy or mass. There is no pleural effusion. There is no pericardial effusion. The thoracic aorta is normal with no aneurysm or dissection. There is calcification in the aorta con sistent with atherosclerosis. The heart size is normal. There is mild coronary artery calcificatio n. Images through the upper abdomen demonstrate normal visualized portions of the liver, spleen, and ad renals. There are mild degenerative changes of the thoracic spine with osteophytes noted. IMPRESSION: 1. Normal CT pulmonary angiogram with no evidence of pulmonary artery embolism. 2. Atherosclerosis. 3. Coronary artery calcification. 4. Degenerative changes of the spine. 5. Otherwise unremarkable study. RPTAT: QQ .Raul Aguilar MD, Date Time Electronically viewed and signed by .Raul Aguilar MD, on 04/29/2017 22:49 .R/
[2017-04-30] VITALS (11 sets, daily range): BP systolic 101–112; BP diastolic 58–70; PULSE 59–68; RESP 17–19
[2017-04-30] MEDS: ACCU-CHEK XX SCH ×4 (02:00→20:37)
[2017-04-30] MEDS: HYDROCODONE/APAP (10/325) TAB PO PRN ×3 (04:40→23:56)
[2017-04-30] MEDS: INSULIN ASPART [NOVOLOG] 3 ML PEN SC SCH ×7 (08:00→20:38)
[2017-04-30] MEDS: METOPROLOL 25 MG TAB PO SCH ×2 (08:29→20:38)
[2017-04-30] MEDS: LOSARTAN 50 MG TAB PO SCH (08:29)
[2017-04-30] MEDS: ASPIRIN (EC) 81 MG TAB PO SCH (08:29)
[2017-04-30] MEDS ORDERED: MECL-77 PO (14:31)
--- NOTE | 2017-04-30 14:32 | PDOCDIS ---
Discharge Instructions CONDITION Patient Condition: Stable HOME CARE INSTRUCTIONS: Diet Instructions: Low Fat /Cholesterol ACTIVITY: Activity Restrictions: Slowly Increase Activity FOLLOW UP/APPOINTMENTS Follow-up Plan Follow up with your regular doctor within 7 days. Please ask him/her for a referral to physical or occupational therapy for particle repositioning maneuver training for your BPPV/Benign paroxysmal positional vertigo. Of note, if your dizziness does not improve by the time you see your regular doctor, please ask if he or she would like to do additional brain imaging Also, I have held some of your blood pressure and BPH/large prostate medications in case these were contributing to your lightheadedness, though I suspect your BPPV is the culprit. CHAPARRO ARREGUIN MD Apr 30, 2017 14:31
--- NOTE | 2017-04-30 14:40 | DS ---
Date/Time of Note Date/Time of Note DATE: 04/30/17 TIME: 14:40 Discharge Summary Admission/Discharge Info Admit Date/Time Apr 28, 2017 at 16:17 Discharge Date/Time Patient Condition: Stable Procedures 7.13 TTE Conclusions Normal left ventricular systolic function. Normal left ventricular cavity size. Normal left ventricular wall thickness. Ejection fraction is visually estimated at 55 %. No left ventricular thrombus visualized. Tissue Doppler/Mitral Doppler indices are within normal limits. No significant valvular stenosis or regurgitation seen. Estimated peak PA systolic pressure 34 mmHg based on RA pressure of 3 mmHg. LE dopplers IMPRESSION: No sonographic evidence for bilateral lower extremity deep venous thrombosis. NCCT head Impression 1. No CT evidence of acute intracranial pathology. 2. Mild diffuse atrophy and deep white matter microangiopathic ischemic changes. 3. Atherosclerotic calcifications of the intracranial carotid arteries. 7.14 CTA Chest IMPRESSION: 1. Normal CT pulmonary angiogram with no evidence of pulmonary artery embolism. 2. Atherosclerosis. 3. Coronary artery calcification. 4. Degenerative changes of the spine. 5. Otherwise unremarkable study. [place] Hallpike + on R Hx of Present Illness 61 yo M with pmhx HTN, HL, DM2, obesity sp R knee replacement 2 weeks ago presents for evaluation of syncope. Pt reports that he'd been feeling lightheaded for the past 2-3 days, worse with position changes. Yesterday had a routine post op ortho appointment. Was told knee is healing well but after his appointment felt very very lightheaded on the way home, started feeling presyncopal/as though he was blacking out on the way home, then passed out after taking a few steps into his home. Awoke on a daybed in his living room. Still felt lightheaded this morning so family and friends advised he come in for further eval. No fever. +chills. +occ SOB over this episode. No chest pain. No cough. No dysuria. No increase in knee pain or swelling. No abd pain. No diarrhea. Reports adequate PO. No recent medication changes. +nausea, no vomiting. No report of tremors/shaking/seizure-like activity. Hospital Course TTE nl, no events on tele, CTA without evidence of PE. Of note, on further questioning on date of discharge, pt states that his main problem is vertigo when turning head to the R. Pt with +[place] Hallpike on R (pt with horizontal nystagmus within 5 seconds though not immediately when head rotated to R, lasted <1 minute) , negative on L. Pt to be discharged with PRN meclizine and advised to f/u with PCP for referral for Epleys. Of note, pt also advised in discharge instructions to see PCP within 1 week and if symptoms are not improved then more advanced neuroimaging should be considered Home imdur and flomax stopped. Orthostatics not done but BPs ok regardless. Home Meds Active Scripts Nitroglycerin* (Nitrostat*) 0.4 Mg Tab.subl, 1 TAB SL Q5M Y for ANGINA, #30 Prov:JULIANO PATEL MD 04/01/17 Metoprolol Tartrate* (Lopressor*) 25 Mg Tab, 25 MG PO BID, #120 TAB Prov:JULIANO PATEL MD 04/01/17 Isosorbide Dinitrate* (Isordil*) 10 Mg Tablet, 10 MG PO TID, #180 TAB Prov:JULIANO PATEL MD 04/01/17 Atorvastatin* (Atorvastatin*) 40 Mg Tablet, 40 MG PO QHS for 30 Days, #30 TAB Prov:ONI RANGEL NP 11/26/16 Tamsulosin Hcl* (Flomax*) 0.4 Mg Cap.er.24h, 0.4 MG PO QPM, #30 CAP Prov:SANTIAGO PORTILLO MD 07/16/16 Reported Medications Metformin* (Glucophage*) 500 Mg Tab, 500 MG PO BID, #30 TAB 03/28/17 Insulin Lispro (Humalog) 100 Unit/1 Ml Cartridge, 12 UNIT SQ TID 03/28/17 Insulin Glargine* (Lantus*) 100 Unit/Ml Soln, 36 UNIT SC QHS, #1 VIAL 03/28/17 Losartan Potassium* (Losartan Potassium*) 50 Mg Tablet, 50 MG PO DAILY, TAB 07/16/16 Amlodipine Besylate* (Norvasc*) 5 Mg Tablet, 5 MG PO DAILY, TAB 07/16/16 Aspirin* (Aspirin* EC) 81 Mg Tablet.dr, 81 MG PO DAILY, TAB 06/03/16 Follow-up Plan PCP within 7 days Primary Care Provider Not On Staff Doctor Time spent on discharge: > 30 minutes Pending Labs Laboratory Tests Test 04/29/17 15:12 04/29/17 16:51 04/29/17 21:29 04/30/17 08:27 Bedside Glucose 127mg/dL (70-220) 94mg/dL (70-220) 95mg/dL (70-220) 107mg/dL (70-220) Test 04/30/17 11:27 Bedside Glucose 129mg/dL (70-220) CHAPARRO ARREGUIN MD Apr 30, 2017 14:40
[2017-04-30] MEDS: ATORVASTATIN 40 MG TAB PO SCH (20:37)
[2017-04-30] MEDS: INSULIN GLARGINE [LANtus] 3 ML PEN SC SCH (20:39)
[2017-05-01] VITALS (11 sets, daily range): BP systolic 110–133; BP diastolic 58–77; PULSE 54–65; RESP 18–20
[2017-05-01] MEDS: ACCU-CHEK XX SCH ×4 (02:31→20:19)
[2017-05-01] MEDS: INSULIN ASPART [NOVOLOG] 3 ML PEN SC SCH ×7 (08:00→20:19)
[2017-05-01] MEDS: ASPIRIN (EC) 81 MG TAB PO SCH (08:50)
[2017-05-01] MEDS: METOPROLOL 25 MG TAB PO SCH ×2 (08:51→20:24)
[2017-05-01] MEDS: LOSARTAN 50 MG TAB PO SCH (08:51)
[2017-05-01] MEDS: HYDROCODONE/APAP (10/325) TAB PO PRN ×2 (12:43→20:20)
--- NOTE | 2017-05-01 13:56 | RADRPT ---
PROCEDURE: X-ray facial bones. CLINICAL INDICATION: Facial pain. Clearance for MRI. History of possible metal fragment in the fa ce. TECHNIQUE: 2 views. Frontal and lateral. COMPARISON: No prior study is available for comparison. FINDINGS: There is no fracture. Overlying soft tissues are normal. Visualized paranasal sinuses are normal. There is no lytic or blastic lesion. There is dental work overlying the mandible. There is no other abnormal radiopaque foreign body. IMPRESSION: 1. Unremarkable images of the facial bones with no abnormal radiopaque foreign body. RPTAT: QQ .Raul Aguilar MD, MD Date Time Electronically viewed and signed by .Raul Aguilar MD, MD on 05/01/2017 13:56 .R/
--- NOTE | 2017-05-01 15:43 | RADRPT ---
PROCEDURE: MR IACs with and without contrast. CLINICAL INDICATION: Vertigo. Evaluate for right acoustic neuroma. TECHNIQUE: An MRI of the internal auditory canals was performed on a 1.5 tameka scanner utilizing the following thin section sequences: axial 3D volume high resolution T2 weighted, axial diffusion weighted with ADC mapping, and pre and post contrast axial and coronal T1 weighted images. 10 ml Ma gnevist was given intravenously without complication. COMPARISON: MR brain 01/10/2017 FINDINGS: MR brain: 6 mm focus of restricted diffusion in the right lateral aspect of the splenium of the corpus callosu m most compatible with the acute / early subacute ischemic infarction. No associated postcontrast e nhancement. No other evidence of restricted diffusion or pathologic enhancement. No signal loss on gradient echo due to start sequences to suggest hemosiderin deposition or hemorrhage. No pathologic enhancement. Stable periventricular, pericallosal, and subcortical white matter T2 signal hyperintensity foci in remote infarct roman on the right. These findings likely represent sequelae of chronic microvascular ischemic injury given the patient's advanced age. A demyelinating process is considered less likel y. The ventricles and subarachnoid space are age-appropriate size with preservation of faith white diffe rentiation. The posterior fossa contents, brainstem, orbits, paranasal sinuses, mastoid air cells are unremarkab le. Normal flow voids of the intracranial vessels and dural venous sinuses indicate patency. Normal pituitary axis. MRI IACs: The internal auditory canals are bilaterally symmetric and normal in appearance. The seventh and ei ghth cranial nerve complexes appear normal with no evidence of abnormal enhancement on the postcontr ast images. No cerebellar pontine angle mass lesion is detected. The membranous portions of the in ner ear structures are bilaterally symmetric and normal in appearance. The mastoid air cells are cl ear. IMPRESSION: 1. 6 mm focus of restricted diffusion in the right lateral aspect of the splenium of the corpus call osum most compatible with acute / early subacute ischemic infarction. Chronic microvascular ischemi c changes in the deep white matter. Differential diagnostic considerations discussed above. 2. Mild age related parenchymal volume loss. No evidence of intracranial hemorrhage or abnormal ext ra-axial fluid collection. 3. Unremarkable MRI of the IACs. No evidence of vestibular schwannoma or inflammatory process. RPTAT:AAJJ Hollie Hernandez, Physician Date Time Electronically viewed and signed by Hollie Hernandez Physician on 05/01/2017 15:43 MARIAJOSE/
--- NOTE | 2017-05-01 16:52 | PN ---
Date/Time of Note Date/Time of Note DATE: 05/01/17 TIME: 16:52 Assessment/Plan Lines/Catheters IV [facility] Saline Lock Urinary Cath still in place: No Assessment/Plan Chief Complaint/Hosp Course TTE nl, no events on tele, CTA without evidence of PE. Of note, on further questioning on date of discharge, pt states that his main problem is vertigo when turning head to the R. Pt with +[place] Hallpike on R (pt with horizontal nystagmus within 5 seconds though not immediately when head rotated to R, lasted <1 minute) , negative on L. Pt to be discharged with PRN meclizine and advised to f/u with PCP for referral for Epleys. Of note, pt also advised in discharge instructions to see PCP within 1 week and if symptoms are not improved then more advanced neuroimaging should be considered Home imdur and flomax stopped. Orthostatics not done but BPs ok regardless. Problems: Exam/Review of Systems Vital Signs Vitals Vital Signs Date Time Temp Pulse Resp B/P Pulse Ox O2 Delivery O2 Flow Rate FiO2 05/01/17 15:49 98.0 58 18 110/64 93 04/28/17 21:48 Room Air Intake and Output 04/30/17 04/30/17 05/01/17 15:00 23:00 07:00 Intake Total 840 ml 800 ml Output Total 50 ml Balance 840 ml 750 ml Results Result Diagram: 04/29/17 0741 04/29/17 0741 Results 24 hrs Laboratory Tests Test 04/30/17 17:30 04/30/17 20:32 05/01/17 02:24 05/01/17 08:04 Bedside Glucose 109 123 106 116 Test 05/01/17 12:22 Bedside Glucose 116 Medications Medications Current Medications Aspirin (Halfprin) 81 mg DAILY PO Last administered on 05/01/17 08:50; Admin Dose 81 MG; Start 04/29/17 at 09:00 Atorvastatin Calcium (Lipitor) 40 mg QHS PO Last administered on 04/30/17 20: 37; Admin Dose 40 MG; Start 04/28/17 at 21:00 Insulin Glargine (Lantus) 36 unit QHS SC Last administered on 04/30/17 20:39; Admin Dose 36 UNIT; Start 04/28/17 at 21:00 Losartan Potassium (Cozaar) 50 mg DAILY PO Last administered on 05/01/17 08:51 ; Admin Dose 50 MG; Start 04/29/17 at 09:00 Metoprolol Tartrate (Lopressor) 25 mg BID PO Last administered on 05/01/17 08: 51; Admin Dose 25 MG; Start 04/28/17 at 21:00 Diagnostic Test (Pha) (Accu-Chek) 1 ea 02 XX Last administered on 05/01/17 02: 31; Admin Dose 1 EA; Start 04/29/17 at 02:00 Ondansetron HCl (Zofran Tab) 4 mg Q6H PRN PO NAUSEA AND/OR VOMITING; Start at 17:30 Ondansetron HCl (Zofran Inj) 4 mg Q6H PRN IV NAUSEA AND/OR VOMITING; Start at 17:30 Acetaminophen (Tylenol Tab) 650 mg Q6H PRN PO PAIN LEVEL 1-3 OR FEVER; Start at 17:30 Docusate Sodium (Colace) 100 mg Q12H PRN PO CONSTIPATION Last administered on 08:29; Admin Dose 100 MG; Start 04/28/17 at 17:30 Magnesium Hydroxide (Milk Of Mag) 30 ml DAILY PRN PO CONSTIPATION; Start at 17:30 Bisacodyl (Dulcolax) 5 mg DAILY PRN PO CONSTIPATION Last administered on 08:29; Admin Dose 5 MG; Start 04/28/17 at 17:30 Miscellaneous Information 1 ea NOTE XX ; Start 04/28/17 at 18:00 Glucose (Glutose) 15 gm Q15M PRN PO DECREASED GLUCOSE; Start 04/28/17 at 18:00 Glucose (Glutose) 22.5 gm Q15M PRN PO DECREASED GLUCOSE; Start 04/28/17 at 18: 00 Dextrose (D50w Syringe) 25 ml Q15M PRN IV DECREASED GLUCOSE; Start 04/28/17 at 18:00 Dextrose (D50w Syringe) 50 ml Q15M PRN IV DECREASED GLUCOSE; Start 04/28/17 at 18:00 Glucagon (Glucagen) 1 mg Q15M PRN IM DECREASED GLUCOSE; Start 04/28/17 at 18:00 Glucose (Glutose) 15 gm Q15M PRN BUCCAL DECREASED GLUCOSE; Start 04/28/17 at 18 :00 Acetaminophen/ Hydrocodone Bitart ([place] ()) 1 tab Q6 PRN PO PAIN LEVEL 7 -10 Last administered on 05/01/17t 12:43; Admin Dose 1 TAB; Start 04/28/17 at 21 :00 CHAPARRO ARREGUIN MD May 01, 2017 16:52
--- NOTE | 2017-05-01 17:07 | PN ---
Date/Time of Note Date/Time of Note DATE: 05/01/17 TIME: 17:06 Assessment/Plan VTE Prophylaxis VTE Prophylaxis Intervention: SCD's Lines/Catheters IV C[facility]ter Type (from [facility]): Saline Lock Urinary Cath still in place: No Assessment/Plan Assessment/Plan 61 yo M with pmhx DM2, HTN, HL, recent R knee replacement 2 weeks ago presents with several days of lightheadedness and a syncopal episode 7.12. Neuroimaging with incidental finding of small CVA. Also with vertigo when he turns head to the right and + juan hallpike consistent with BPPV PLAN cont tele neuro to see for CVA a1c 7.5, check lipids. already on atorva 40. already on asa OT for BPPV/epleys eval carb controlled diet DVT prophx Subjective 24 Hr Interval Summary Free Text/Dictation MRI with incidental finding of small stroke. Pt still with vertigo when he turns his head to the R Exam/Review of Systems Vital Signs Vitals Vital Signs Date Time Temp Pulse Resp B/P Pulse Ox O2 Delivery O2 Flow Rate FiO2 05/01/17 16:11 54 05/01/17 15:49 98.0 18 110/64 93 04/28/17 21:48 Room Air Intake and Output 04/30/17 04/30/17 05/01/17 15:00 23:00 07:00 Intake Total 840 ml 800 ml Output Total 50 ml Balance 840 ml 750 ml Exam nad no mrg lungs clear abd soft no rashes Results Result Diagram: 04/29/17 0741 04/29/17 0741 Results 24 hrs Laboratory Tests Test 04/30/17 17:30 04/30/17 20:32 05/01/17 02:24 05/01/17 08:04 Bedside Glucose 109 123 106 116 Test 05/01/17 12:22 Bedside Glucose 116 Medications Medications Current Medications Aspirin (Halfprin) 81 mg DAILY PO Last administered on 05/01/17 08:50; Admin Dose 81 MG; Start 04/29/17 at 09:00 Atorvastatin Calcium (Lipitor) 40 mg QHS PO Last administered on 04/30/17 20: 37; Admin Dose 40 MG; Start 04/28/17 at 21:00 Insulin Glargine (Lantus) 36 unit QHS SC Last administered on 7/15/17at 20:39; Admin Dose 36 UNIT; Start 04/28/17 at 21:00 Losartan Potassium (Cozaar) 50 mg DAILY PO Last administered on 05/01/17 08:51 ; Admin Dose 50 MG; Start 04/29/17 at 09:00 Metoprolol Tartrate (Lopressor) 25 mg BID PO Last administered on 05/01/17 08: 51; Admin Dose 25 MG; Start 04/28/17 at 21:00 Diagnostic Test (Pha) (Accu-Chek) 1 ea 02 XX Last administered on 05/01/17 02: 31; Admin Dose 1 EA; Start 04/29/17 at 02:00 Ondansetron HCl (Zofran Tab) 4 mg Q6H PRN PO NAUSEA AND/OR VOMITING; Start at 17:30 Ondansetron HCl (Zofran Inj) 4 mg Q6H PRN IV NAUSEA AND/OR VOMITING; Start at 17:30 Acetaminophen (Tylenol Tab) 650 mg Q6H PRN PO PAIN LEVEL 1-3 OR FEVER; Start at 17:30 Docusate Sodium (Colace) 100 mg Q12H PRN PO CONSTIPATION Last administered on 08:29; Admin Dose 100 MG; Start 04/28/17 at 17:30 Magnesium Hydroxide (Milk Of Mag) 30 ml DAILY PRN PO CONSTIPATION; Start at 17:30 Bisacodyl (Dulcolax) 5 mg DAILY PRN PO CONSTIPATION Last administered on 08:29; Admin Dose 5 MG; Start 04/28/17 at 17:30 Miscellaneous Information 1 ea NOTE XX ; Start 04/28/17 at 18:00 Glucose (Glutose) 15 gm Q15M PRN PO DECREASED GLUCOSE; Start 04/28/17 at 18:00 Glucose (Glutose) 22.5 gm Q15M PRN PO DECREASED GLUCOSE; Start 04/28/17 at 18: 00 Dextrose (D50w Syringe) 25 ml Q15M PRN IV DECREASED GLUCOSE; Start 04/28/17 at 18:00 Dextrose (D50w Syringe) 50 ml Q15M PRN IV DECREASED GLUCOSE; Start 04/28/17 at 18:00 Glucagon (Glucagen) 1 mg Q15M PRN IM DECREASED GLUCOSE; Start 04/28/17 at 18:00 Glucose (Glutose) 15 gm Q15M PRN BUCCAL DECREASED GLUCOSE; Start 04/28/17 at 18 :00 Acetaminophen/ Hydrocodone Bitart (Cisco ()) 1 tab Q6 PRN PO PAIN LEVEL 7 -10 Last administered on 05/01/17t 12:43; Admin Dose 1 TAB; Start 04/28/17 at 21 :00 CHAPARRO ARREGUIN MD May 01, 2017 17:07
[2017-05-01 18:46] LABS: CHOL/HDL RATIO 4.3 RATIO
[2017-05-01] MEDS: ATORVASTATIN 40 MG TAB PO SCH (20:20)
[2017-05-01] MEDS: INSULIN GLARGINE [LANtus] 3 ML PEN SC SCH (20:25)
[2017-05-02] VITALS (10 sets, daily range): BP systolic 100–139; BP diastolic 56–80; PULSE 58–65; RESP 18
[2017-05-02] MEDS ORDERED: LORAZEPAM 2 MG INJ IV ONE (01:00)
[2017-05-02] MEDS: ACCU-CHEK XX SCH ×3 (02:00→14:00)
[2017-05-02] MEDS: HYDROCODONE/APAP (10/325) TAB PO PRN (07:45)
[2017-05-02] MEDS: INSULIN ASPART [NOVOLOG] 3 ML PEN SC SCH ×4 (08:00→13:12)
[2017-05-02] MEDS: ASPIRIN (EC) 81 MG TAB PO SCH (09:06)
[2017-05-02] MEDS: METOPROLOL 25 MG TAB PO SCH (09:06)
[2017-05-02] MEDS: LOSARTAN 50 MG TAB PO SCH (09:06)
[2017-05-02] MEDS ORDERED: CLOPIDOGREL 75 MG TAB NGT SCH (12:30)
[2017-05-02] MEDS ORDERED: CLOP75TA28 NGT (14:48)
--- NOTE | 2017-05-02 14:57 | DS ---
Date/Time of Note Date/Time of Note DATE: 05/02/17 TIME: 14:53 Discharge Summary Admission/Discharge Info Admit Date/Time Apr 28, 2017 at 16:17 Discharge Date/Time Discharge Diagnosis 1. Syncope -secondary to small CVA -clinically improved 2. HTN - essential 3. HL 4. DM2 5. obesity sp R knee replacement 2 weeks ago Patient Condition: Stable Hx of Present Illness . Hospital Course 61 yo M with pmhx HTN, HL, DM2, obesity sp R knee replacement 2 weeks ago presents for evaluation of syncope. Pt reports that he'd been feeling lightheaded for the past 2-3 days, worse with position changes. Yesterday had a routine post op ortho appointment. Was told knee is healing well but after his appointment felt very very lightheaded on the way home, started feeling presyncopal/as though he was blacking out on the way home, then passed out after taking a few steps into his home. Awoke on a daybed in his living room. Still felt lightheaded this morning so family and friends advised he come in for further eval. had no fever. +chills. +occ SOB over this episode. No chest pain. No cough. No dysuria. No increase in knee pain or swelling. No abd pain. No diarrhea. Reports adequate PO. No recent medication changes. +nausea, no vomiting. No report of tremors/shaking/seizure-like activity. Patient was admitted to telemetry floor, seen by neurology team. He had MRI of the brain performed that showed 6 mm focus of restricted diffusion in the right lateral aspect of the splenium of the corpus callosum most compatible with acute / early subacute ischemic infarction. Patient was also found with vertigo when he turns head to the right and + juan hallpike consistent with possible BPPV. Patient's clinical symptoms improved, he was able to ambulate, tolerated p.o. diet. After getting clearance from neurology team, he will be discharged home today in improved condition. In addition to Plavix 75 mg p.o. daily, please see med list on this discharge summary for full discharge medication list. Home Meds Active Scripts Clopidogrel Bisulfate (Clopidogrel) 75 Mg Tablet, 75 MG NGT DAILY, #30 TAB 3 Refills Prov:TORYLELO Al. 05/02/17 Meclizine Hcl* (Meclizine Hcl*) 25 Mg Tablet, 25 MG PO Q8H Y for DIZZINESS for 7 Days, #21 TAB Prov:CHAPARRO ARREGUIN MD 04/30/17 Nitroglycerin* (Nitrostat*) 0.4 Mg Tab.subl, 1 TAB SL Q5M Y for ANGINA, #30 Prov:JULIANO PATEL MD 04/01/17 Metoprolol Tartrate* (Lopressor*) 25 Mg Tab, 25 MG PO BID, #120 TAB Prov:JULIANO PATEL MD 04/01/17 Atorvastatin* (Atorvastatin*) 40 Mg Tablet, 40 MG PO QHS for 30 Days, #30 TAB Prov:ONI RANGEL NP 11/26/16 Reported Medications Metformin* (Glucophage*) 500 Mg Tab, 500 MG PO BID, #30 TAB 03/28/17 Insulin Lispro (Humalog) 100 Unit/1 Ml Cartridge, 12 UNIT SQ TID 03/28/17 Insulin Glargine* (Lantus*) 100 Unit/Ml Soln, 36 UNIT SC QHS, #1 VIAL 03/28/17 Losartan Potassium* (Losartan Potassium*) 50 Mg Tablet, 50 MG PO DAILY, TAB 07/16/16 Amlodipine Besylate* (Norvasc*) 5 Mg Tablet, 5 MG PO DAILY, TAB 07/16/16 Aspirin* (Aspirin* EC) 81 Mg Tablet.dr, 81 MG PO DAILY, TAB 06/03/16 Discontinued Scripts Isosorbide Dinitrate* (Isordil*) 10 Mg Tablet, 10 MG PO TID, #180 TAB Prov:JULIANO PATEL MD 04/01/17 Tamsulosin Hcl* (Flomax*) 0.4 Mg Cap.er.24h, 0.4 MG PO QPM, #30 CAP Prov:SANTIAGO PORTILLO MD 07/16/16 Primary Care Provider Not On Staff Doctor Time spent on discharge: > 30 minutes Pending Labs Laboratory Tests Test 05/01/17 17:23 05/01/17 18:00 05/01/17 20:18 05/02/17 08:29 Bedside Glucose 108mg/dL (70-220) 168mg/dL (70-220) 111mg/dL (70-220) Triglycerides Level 147mg/dl (0-149) Cholesterol Level 117mg/dl (100-200) LDL Cholesterol, Calculated 61mg/dl HDL Cholesterol 27mg/dl (30-78) Cholesterol/HDL Ratio 4.3RATIO Test 05/02/17 11:13 05/02/17 13:07 Bedside Glucose 105mg/dL (70-220) 118mg/dL (70-220) LELO SPEARS May 02, 2017 14:57
== END 2017-05-02 17:35 | disposition home or self-care (01) | DRG 66 ==
LOC: E/R 12:47 → MS4 16:17
PROVIDERS: ADMIT Family Medicine; ATTEND Family Medicine
DX: I63.9 Cerebral infarction, unspecified (principal); E86.0 Dehydration; I10 Essential (primary) hypertension; Z96.651 Presence of right artificial knee joint; E11.9 Type 2 diabetes mellitus without complications; E66.9 Obesity, unspecified; E78.5 Hyperlipidemia, unspecified; H81.10 Benign paroxysmal vertigo, unspecified ear; Z68.37 Body mass index [BMI] 37.0-37.9, adult; Z79.82 Long term (current) use of aspirin
CPT/HCPCS: 36415; 70140; 70450; 70546; 70553; 71010; 71275; 80053; 80061; 80307; 81001; 81003; 82550; 82553; 82962; 83036; 83690; 83880; 84443; 84484; 85025; 85378; 93005; 93306; 93970; 96372; 96374; 97162; 97167; J1815; J2060; J2405; J7040; Q9967